=== PATIENT | female | born 1965 | race Caucasian/White ===

== ENCOUNTER → 2016-05-29 | Outpatient (CLI) | payer OTHER ==
[~2016-05-29] MED LIST: AMOX875T PO; CLB100 PO; FAMO20TA11 PO; FAMO20TA12 PO; PLQ200 PO; WARF-246 PO
--- NOTE | 2016-05-29 15:54 | DIAGNOSTIC IMAGING REPORT ---
MRI OF THE CERVICAL SPINE WITHOUT IV CONTRAST CLINICAL HISTORY: Neck pain. Left hand numbness. COMPARISON STUDY: Radiographs of the cervical spine dated 07/28/2015. TECHNIQUE: MRI of the cervical spine is performed utilizing various T1 and T2-weighted sequences in the axial and sagittal planes. IV contrast was not administered for this examination. FINDINGS: Cervical spine: Vertebral body height is maintained throughout the cervical spine. There is minimal retrolisthesis at C5-C6. Alignment is otherwise preserved. There is straightening of the cervical lordosis. The atlantodental articulation appears maintained. The spinous processes are intact as visualized. No destructive osseous lesion is seen. Intervertebral discs: There is mild degenerative disc desiccation throughout the cervical spine. Mild loss of height is noted at C5-C6. Spinal cord: The cervical spinal cord is normal in morphology and signal intensity. C2-C3: Unremarkable. C3-C4: Unremarkable. C4-C5: Unremarkable. C5-C6: A posterior disc osteophyte complex abuts the ventral cord. Uncovertebral and facet arthropathy cause [id number] left greater than right neural foraminal stenosis. C6-C7: Unremarkable. C7-T1: Unremarkable. Soft tissues: The prevertebral and paraspinous soft tissues are normal as visualized. Brain parenchyma: Partially imaged brain parenchyma the skull base is within normal limits. The cerebral tonsils are normal in configuration. Mucosal thickening and trace fluid is seen within the sphenoid sinuses. IMPRESSION: 1. Spondylotic change at C5-C6 as detailed above. 2. The cervical spinal cord is normal in morphology and signal intensity. Electronically signed by: Praful Azar M.D. 05/29/2016 3:53 PM Dictated Date/Time: 05/29/2016 3:49 PM
== END | disposition home or self-care (01) ==
LOC: C.MRI 14:54
PROVIDERS: ATTEND Orthopaedic Surgery
DX: M54.2 Cervicalgia (principal)

== ENCOUNTER 2016-07-22 01:50 | Inpatient (IN) | payer OTHER ==
[~2016-07-22] VITALS: Ht 165.1 cm; Wt 91.9 kg
[~2016-07-22 01:50] MED LIST changes: -AMOX875T PO; -CLB100 PO; -FAMO20TA11 PO; -FAMO20TA12 PO
[2016-07-22] MEDS ORDERED: KETOROLAC TROMETHAMINE 30 MG/ML VIAL IV STA (02:24)
--- NOTE | 2016-07-22 02:25 | EMERGENCY ROOM VISIT NOTE ---
History Report prepared by Florinda: Veronica Castro Under the Supervision of: Dr. Ana Sutton D.O. First contact with patient: 02:08 Chief Complaint: SHOULDER PAIN Stated Complaint: RIGHT ARM PAIN AND SHOULDER PAIN History of Present Illness The patient is a 50 year old female who presents to the Emergency Room with complaints of persistent right shoulder pain that began around 1999 this evening. She currently rates her discomfort as a 10/10 in severity. The patient states that this evening she developed severe right shoulder pain and states that she could not move her shoulder up. She states that she has tried heat, Aleve, Advil, and Icy/hot without relief of her symptoms. The patient states that today she had two moles removed from her back. She additionally notes that she had two moles removed from her leg recently, noting that she has not been working out recently. The patient denies ever having this pain in the past. She notes that she has a history of severe rheumatoid arthritis. The patient notes that she has been feeling tired and weak recently. She states that she has chronic pain and numbness in her left fingers due to a compressing nerve in her C5 and C6. The patient denies any abdominal pain. The patient states that she is on Coumadin for her Factor Five Leiden Deficiency Source of History: patient Onset: 1999 this evening Position: shoulder (right) Symptom Intensity: 10/10 Timing: other (persistent) Associated Symptoms: No abdominal pain Review of Systems See HPI for pertinent positives & negatives. A total of 10 systems reviewed and were otherwise negative. Past Medical & Surgical Medical Problems: (1) Anemia, iron deficiency (2) Cholelithiasis (3) Endometriosis (4) Epigastric pain (5) Factor V Leiden mutation (6) GERD (gastroesophageal reflux disease) (7) Gestational diabetes, diet controlled (8) H/O deep venous thrombosis (9) HLD (hyperlipidemia) (10) Lumbago (11) Migraine with aura (12) RUQ abdominal pain (13) Subtherapeutic international normalized ratio (INR) Surgical Problems: (1) breast needle biopsy (2) bunion surgery (3) H/O colonoscopy (4) H/O esophagogastroduodenoscopy (5) H/O gastric bypass (6) History of carpal tunnel surgery (7) History of kidney surgery (8) History of ureter stent Family History Diabetes mellitus FH: heart disease FATHER FH: rheumatoid arthritis FATHER Social History Smoking Status: Former Smoker Alcohol Use: occasionally Drug Use: none Marital Status: Housing Status: lives with family Occupation Status: employed Current/Historical Medications Scheduled Hydroxychloroquine Sulfate (Hydroxychloroquine Sulfat), 400 MG PO HS Warfarin Sodium (Warfarin Sodium), 5 MG PO 4XWK Warfarin Sodium (Warfarin Sodium), 7.5 MG PO 3XWK Allergies Coded Allergies: Pantoprazole (Verified Allergy, Intermediate, RASH, 07/22/16) Penicillin V (Verified Allergy, Intermediate, MILD HIVES, 07/22/16) Tetracyclines (Verified Allergy, Mild, RASH, 07/22/16) Latex (Verified Allergy, Unknown, RASH, 07/22/16) Sulfa Antibiotics (Verified Adverse Reaction, Mild, HEADACHES, 07/22/16) Physical Exam Vital Signs Date Time Temp Pulse Resp B/P Pulse Ox O2 Delivery O2 Flow Rate FiO2 07/22/16 06:20 66 12 100 07/22/16 06:00 120/76 07/22/16 05:50 60 14 94 07/22/16 05:45 56 15 136/74 95 Room Air 07/22/16 05:18 69 18 117/78 100 Room Air 07/22/16 05:06 62 07/22/16 05:05 60 16 133/80 94 Room Air 07/22/16 04:30 68 18 112/64 94 Room Air 07/22/16 03:18 56 18 125/72 96 Room Air 07/22/16 02:01 37.1 74 18 120/80 99 Room Air Physical Exam HEENT: Head - normocephalic and atraumatic Pupils are equal, round, and reactive to light. Extraocular eye muscles are intact, and sclera are anicteric. Nose - moist nasal mucosa without discharge. Mouth - moist buccal mucosa. Oropharynx is nonerythematous and there is no tonsillar exudate or edema noted. Neck: Supple; no JVD, nuchal rigidity, cervical lymphadenopathy. Heart: Regular rate and rhythm. There is a normal S1 and S2 with no murmurs, clicks, or gallops appreciated. Lungs: Clear to auscultation bilaterally with no wheezes, rales, or rhonchi. Abdomen: Soft, completely nontender, nondistended, with good bowel sounds. There are no palpable pulsatile masses or hepatosplenomegaly. There is no guarding, rigidity, or rebound noted. Extremities: Right shoulder has severe pain with palpation over the supraspinatus muscle, severe and exquisite discomfort with abduction and flexion of shoulder, pain in shoulder with movement at the elbow. Normal sensation in hand. No evidence of cyanosis, clubbing, or edema. There are easily palpable peripheral pulses. Skin: warm and dry with good turgor and no rashes. Medical Decision & Procedures ER Provider Diagnostic Interpretation: Right shoulder x-ray 2 views interpreted by me: no obvious degenerative changes , no fracture, no dislocation CT results as stated below per my review and radiologist interpretation: CT Right Shoulder: Comparison 07/22/2016. No acute osseous abnormality or evidence of hemarthrosis. Moderate right clinical humeral joint effusion. Mild acromioclavicular osteoarthritis. Radiologist: Paxton Hebert MD Study ready at 0336 and initial results transmitted at 0356 CT Abdomen and Pelvis: Comparison 08/23/2015. No acute intra-abdominal or pelvic abnormality. No evidence of intra-abdominal or retroperitoneal hemorrhage. Stable left UPJ obstruction. Stable prominence of the intrahepatic and extrahepatic bile ducts. Stable surgical changes of cholecystectomy and gastric bypass. No evidence of obstruction. Radiologist: Paxton Hebert MD Study ready at 0540 and initial results transmitted at 0614 Laboratory Results 07/22/16 02:32 Red Blood Count 4.85, Mean Corpuscular Volume 85.2, Mean Corpuscular Hemoglobin 28.0, Mean Corpuscular Hemoglobin Concent 32.9, Mean Platelet Volume 9.1, Neutrophils (%) (Auto) 64.2, Lymphocytes (%) (Auto) 23.2, Monocytes (%) (Auto) 9.1, Eosinophils (%) (Auto) 2.5, Basophils (%) (Auto) 0.8, Neutrophils # (Auto) 3.82, Lymphocytes # (Auto) 1.38, Monocytes # (Auto) 0.54, Eosinophils # (Auto) 0.15, Basophils # (Auto) 0.05 07/22/16 04:50 Test 07/22/16 02:32 07/22/16 04:50 White Blood Count 5.95 K/uL (4.8-10.8) Red Blood Count 4.85 M/uL (4.2-5.4) Hemoglobin 13.6 g/dL (12.0-16.0) Hematocrit 41.3 % (37-47) Mean Corpuscular Volume 85.2 fL (80-100) Mean Corpuscular Hemoglobin 28.0 pg (25-34) Mean Corpuscular Hemoglobin Concent 32.9 g/dl (32-36) Platelet Count 243 K/uL (130-400) Mean Platelet Volume 9.1 fL (7.4-10.4) Neutrophils (%) (Auto) 64.2 % Lymphocytes (%) (Auto) 23.2 % Monocytes (%) (Auto) 9.1 % Eosinophils (%) (Auto) 2.5 % Basophils (%) (Auto) 0.8 % Neutrophils # (Auto) 3.82 K/uL (1.4-6.5) Lymphocytes # (Auto) 1.38 K/uL (1.2-3.4) Monocytes # (Auto) 0.54 K/uL (0.11-0.59) Eosinophils # (Auto) 0.15 K/uL (0-0.5) Basophils # (Auto) 0.05 K/uL (0-0.2) RDW Standard Deviation 43.3 fL (36.4-46.3) RDW Coefficient of Variation 14.1 % (11.5-14.5) Immature Granulocyte % (Auto) 0.2 % Immature Granulocyte # (Auto) 0.01 K/uL (0.00-0.02) Erythrocyte Sedimentation Rate 3 mm/hr (0-21) Activated Partial Thromboplast Time 47.9 SECONDS (21.0-31.0) Partial Thromboplastin Ratio 1.8 C-Reactive Protein < 0.29 mg/dl (0-0.29) Anion Gap 6.0 mmol/L (3-11) Est Creatinine Clear Calc Drug Dose 99.6 ml/min Estimated GFR () 108.0 Estimated GFR (Non- 93.1 BUN/Creatinine Ratio 19.1 (10-20) Calcium Level 8.2 mg/dl (8.5-10.1) Total Bilirubin 0.5 mg/dl (0.2-1) Direct Bilirubin 0.2 mg/dl (0-0.2) Aspartate Amino Transf (AST/SGOT) 140 U/L (15-37) Alanine Aminotransferase (ALT/SGPT) 65 U/L (12-78) Alkaline Phosphatase 96 U/L (45-117) Total Protein 6.5 gm/dl (6.4-8.2) Albumin 3.5 gm/dl (3.4-5.0) Lipase 298 U/L (73-393) Laboratory results per my review. Medications Administered Medications (Trade) Dose Ordered Sig/Huseyin Route Start Time Stop Time Status Last Admin Dose Admin Ketorolac Tromethamine (Toradol Inj) 30 mg NOW STAT IV 07/22/16 02:24 07/22/16 02:26 DC 07/22/16 02:40 30 MG Hydromorphone HCl (Dilaudid Inj) 2 mg NOW STAT IV 07/22/16 02:26 07/22/16 02:27 DC 07/22/16 02:39 2 MG Ondansetron HCl (Zofran Inj) 4 mg NOW STAT IV 07/22/16 03:07 07/22/16 03:09 DC 07/22/16 03:16 4 MG Metoclopramide HCl 5 mg 5 mg NOW STAT IV 07/22/16 03:41 07/22/16 03:42 DC 07/22/16 03:46 5 MG Phytonadione/ Sodium Chloride (Aqua-Mephyton Inj/Nss 50ml) 51 ml @ 102 mls/hr NOW STAT IV 07/22/16 04:44 07/22/16 05:13 DC 07/22/16 05:02 102 MLS/HR Famotidine (Pepcid 20mg/100 ml) 20 mg ONE STAT IV 07/22/16 05:28 07/22/16 05:35 DC 07/22/16 05:43 20 MG Hydromorphone HCl (Dilaudid Inj) 0.5 mg NOW STAT IV 07/22/16 06:20 07/22/16 06:21 DC 07/22/16 06:22 0.5 MG Procedure The patient was treated with Toradol Inj 30 mg IV, Dilaudid Inj 2 mg IV, Zofran Inj 4 mg IV, Reglan Inj 5 mg IV. ED Course 0213: Past medical records reviewed. The patient was evaluated in room A12B. A complete history and physical exam was performed. An IV lock was initiated and labs are drones above. 0224: Ordered Toradol Inj 30 mg IV, Dilaudid Inj 2 mg IV. The patient had a chest x-ray. 0307: I reevaluated the patient and she is pale, diaphoretic, and nauseated. Patient was noted to have a significantly elevated INR. She is going to have a CT scan. Ordered Zofran Inj 4 mg IV. 0340: Per nursing staff the patient is complaining of epigastric pain and is still nauseated. Ordered Reglan Inj 5 mg IV. 0406: I reevaluated the patient and she is still having epigastric pain and nausea. I discussed the exam findings with her and I discussed the treatment plan. She verbalized complete understanding and agreement. She will be evaluated for further treatment. 0425: I discussed the patients case with Jeremy Esparza. He is going to evaluate the patient for further treatment. 0618: I reevaluated the patient and updated her on her results of her CT scan. She is having more right shoulder pain. Medical Decision The patient is a 50 year old female who presents to the ED with right shoulder pain. Differential diagnosis includes cervical radiculopathy, tendinitis, bursitis, DVT, Hemarthrosis. Lab interpretation: normal sed rate, stable H&H, normal white count, negative C reactive protein, INR greater than 8 this is a 50-year-old female patient presents to the emergency department with severe and exquisite right shoulder pain. The pain gets much worse with any type of movement. Initially, I was significantly concerned for a bursitis or tendinitis. However, the patient has an INR greater than [address] scan has a significant effusion which would be concerning for hemarthrosis. I discussed the case with the [facility] Hospitalist and they evaluated the patient and ordered vitamin K. They will consult orthopedics. The patient continued to complain of some epigastric discomfort despite meds. Because of the elevated INR, the patient went for CT scan of the abdomen/pelvis which was essentially unremarkable. Consults Time Called: [phone] Consulting Physician: Dr. Gomez Returned Call: [phone] I discussed the patients case with Jeremy Esparza. He is going to evaluate the patient for further treatment. Impression Primary Impression: Supratherapeutic INR Additional Impression: Hemarthrosis, right shoulder Scribe Attestation The scribe's documentation has been prepared under my direction and personally reviewed by me in its entirety. I confirm that the note above accurately reflects all work, treatment, procedures, and medical decision making performed by me. Departure Information Dispostion Being Evaluated By Hospitalist Referrals Geoff Guillaume M.D.([facility]) (PCP) Problem Qualifiers
[2016-07-22] MEDS ORDERED: HYDROmorphone INJ 2 MG/ML SYR/VIAL IV STA (02:26)
[2016-07-22 02:42] LABS: BASO % 0.8 %; BASO ABS # 0.05 K/uL (0-0.2); COMPLETE YES; EOS % 2.5 %; HEMATOCRIT 41.3 % (37-47); IG% 0.2 %; LYMPH % 23.2 %; LYMPH ABS # 1.38 K/uL (1.2-3.4); MEAN CELL VOLUME 85.2 fL (80-100); MEAN CORPUSCULAR HGB CONC 32.9 g/dl (32-36); MEAN PLATELET VOLUME 9.1 fL (7.4-10.4); MONO % 9.1 %; NEUT % 64.2 %; PLATELET COUNT 243 K/uL (130-400); RED BLOOD COUNT 4.85 M/uL (4.2-5.4); WHITE BLOOD COUNT 5.95 K/uL (4.8-10.8)
[2016-07-22 02:58] LABS: PARTIAL THROMBOPLASTIN RATIO 1.8; PROTHROMBIN TIME (PATIENT) 95.2 SECONDS (9.0-12.0)
[2016-07-22 03:03] LABS: INR > 8.0 (0.9-1.1)
[2016-07-22] MEDS ORDERED: ONDANSETRON INJ 2 MG/ML 2 ML VIAL IV STA (03:07)
[2016-07-22] MEDS ORDERED: METOCLOPRAMIDE HCL INJ 5 MG/ML 2 ML VIAL IV STA (03:41)
[2016-07-22] MEDS ORDERED: PHYTONADIONE INJ 10 MG in SODIUM CHLORIDE 0.9% 50ML 50 ML IV STA (04:44)
[2016-07-22 05:17] LABS: BUN/CREATININE RATIO 19.1 (10-20); CALCIUM 8.2 mg/dl (8.5-10.1); CREATININE 0.74 mg/dl (0.60-1.20); POTASSIUM 4.2 mmol/L (3.5-5.1)
[2016-07-22] MEDS ORDERED: FAMOTIDINE 20MG/102 ML D5W IV STA (05:28)
[2016-07-22] MEDS ORDERED: HYDROmorphone INJ 0.5 MG/0.5 ML SYR ONE (06:18)
[2016-07-22] MEDS ORDERED: HYDROmorphone INJ 0.5 MG/0.5 ML SYR IV STA (06:20)
[2016-07-22] MEDS ORDERED: ONDANSETRON INJ 2 MG/ML 2 ML VIAL IV PRN (06:30)
[2016-07-22] MEDS ORDERED: HYDROmorphone INJ 0.5 MG/0.5 ML SYR IV PRN (06:30)
--- NOTE | 2016-07-22 06:50 | History and Physical ---
History & Physical Date & Time of Service: Jul 22, 2016 at 05:00 . Chief Complaint: right shoulder pain . Primary Care Physician: Geoff Guillaume M.D.([facility]) . History of Present Illness Source: family, clinic records, hospital records 50 YO female followed by Dr. Guillaume. History of recurrent DVT and Factor V Leiden mutation, on chronic warfarin therapy. INR 3/9 was subtherapeutic and warfarin dose was increased. This evening she developed acute onset of right shoulder pain. Pain was severe, nonradiating, aggravated by movement. No trauma or unusual activity. No fever. Tried heating pad and relief without benefit. Came to ED for evaluation. Developed severe epigastric pain and nausea in ED. . Past Medical/Surgical History Chronic and Resolved Medical Problems: (1) Anemia, iron deficiency Status: Chronic (2) Cholelithiasis Status: Chronic (3) Endometriosis Status: Chronic (4) Epigastric pain Status: Resolved (5) Factor V Leiden mutation Status: Chronic (6) GERD (gastroesophageal reflux disease) Status: Chronic (7) Gestational diabetes, diet controlled Status: Chronic (8) H/O deep venous thrombosis Status: Chronic (9) HLD (hyperlipidemia) Status: Chronic (10) Lumbago Status: Chronic (11) Migraine with aura Status: Chronic (12) RUQ abdominal pain Status: Resolved (13) Subtherapeutic international normalized ratio (INR) Status: Resolved Surgical Problems: (1) breast needle biopsy Permanent Comment: sclerotic fibroadenomatoid nodule with microcalcifications Status: Chronic (2) bunion surgery Status: Chronic (3) H/O colonoscopy Status: Chronic (4) H/O esophagogastroduodenoscopy Status: Chronic (5) H/O gastric bypass Status: Chronic (6) History of carpal tunnel surgery Status: Chronic (7) History of kidney surgery Status: Chronic (8) History of ureter stent Status: Chronic . Family History Diabetes mellitus FH: heart disease FATHER FH: rheumatoid arthritis FATHER Social History Smoking Status: Former Smoker Alcohol Use: occasionally Drug Use: none Marital Status: Occupational Status: employed Immunizations History of Influenza Vaccine: Yes History of Tetanus Vaccine?: Unknown History of Pneumococcal: Unknown History of Hepatitis B Vaccine: Unknown Multi-Drug Resistant Organisms History of MDRO: No Allergies Coded Allergies: Pantoprazole (Verified Allergy, Intermediate, RASH, 07/22/16) Penicillin V (Verified Allergy, Intermediate, MILD HIVES, 07/22/16) Tetracyclines (Verified Allergy, Mild, RASH, 07/22/16) Latex (Verified Allergy, Unknown, RASH, 07/22/16) Sulfa Antibiotics (Verified Adverse Reaction, Mild, HEADACHES, 07/22/16) Home Medications Scheduled Hydroxychloroquine Sulfate (Hydroxychloroquine Sulfat), 400 MG PO HS Warfarin Sodium (Warfarin Sodium), 5 MG PO 4XWK Warfarin Sodium (Warfarin Sodium), 7.5 MG PO 3XWK Review of Systems Constitutional: No chills, No fever, No weight loss Eyes: No diplopia, No worsening of vision ENT: No nasal symptoms Respiratory: No cough, No shortness of breath, No wheezing Cardiovascular: No chest pain, No edema Abdomen: + nausea, + pain (developed in ED), No GI bleeding, No diarrhea, No vomiting Musculoskeletal: + problem reported (as noted in HPI) Genitourinary - Female: No dysuria, No hematuria Neurologic: No weakness Endocrine: No excessive thirst, No excessive urination Hematologic / Lymphatic: + abnormal bleeding/bruising, No swollen lymph nodes Integumentary: + problem reported (recent skin biopsy), No rash Physical Exam Vital Signs Date Time Temp Pulse Resp B/P Pulse Ox O2 Delivery O2 Flow Rate FiO2 07/22/16 06:48 69 07/22/16 05:45 56 15 136/74 95 Room Air 07/22/16 05:18 69 18 117/78 100 Room Air 07/22/16 05:06 62 07/22/16 05:05 60 16 133/80 94 Room Air 07/22/16 04:30 68 18 112/64 94 Room Air 07/22/16 03:18 56 18 125/72 96 Room Air 07/22/16 02:01 37.1 74 18 120/80 99 Room Air General Appearance: WD/WN, + moderate distress Head: normocephalic, atraumatic Eyes: normal inspection, PERRL, EOMI, sclerae normal ENT: normal ENT inspection, hearing grossly normal, pharynx normal Neck: supple, no adenopathy, thyroid normal, no JVD, trachea midline Respiratory/Chest: lungs clear, no respiratory distress, no accessory muscle use Cardiovascular: regular rate, rhythm, no edema, no gallop, no JVD, no murmur, normal peripheral pulses Abdomen/GI: soft, no organomegaly, no pulsatile mass, + pertinent finding ( moderate epigastric tenderness with guarding) Extremities/Musculoskelatal: no calf tenderness, normal capillary refill, no pedal edema, + pertinent finding (tenderness right shoulder anteriorly; wearing immobilizer) Neurologic/Psych: publicity consultant II-XII nml as tested (PERRL, EOMI, no facial palsy), + pertinent finding (somewhat sedated after receiving Dilaudid) Skin: normal color, warm/dry Lymphatic: no adenopathy Diagnostics Laboratory Results Results Past 24 Hours Test 07/22/16 02:32 07/22/16 04:50 Range/Units White Blood Count 5.95 4.8-10.8 K/uL Red Blood Count 4.85 4.2-5.4 M/uL Hemoglobin 13.6 12.0-16.0 g/dL Hematocrit 41.3 37-47 % Mean Corpuscular Volume 85.2 80-100 fL Mean Corpuscular Hemoglobin 28.0 25-34 pg Mean Corpuscular Hemoglobin Concent 32.9 32-36 g/dl Platelet Count 243 130-400 K/uL Mean Platelet Volume 9.1 7.4-10.4 fL Neutrophils (%) (Auto) 64.2 % Lymphocytes (%) (Auto) 23.2 % Monocytes (%) (Auto) 9.1 % Eosinophils (%) (Auto) 2.5 % Basophils (%) (Auto) 0.8 % Neutrophils # (Auto) 3.82 1.4-6.5 K/uL Lymphocytes # (Auto) 1.38 1.2-3.4 K/uL Monocytes # (Auto) 0.54 0.11-0.59 K/uL Eosinophils # (Auto) 0.15 0-0.5 K/uL Basophils # (Auto) 0.05 0-0.2 K/uL RDW Standard Deviation 43.3 36.4-46.3 fL RDW Coefficient of Variation 14.1 11.5-14.5 % Immature Granulocyte % (Auto) 0.2 % Immature Granulocyte # (Auto) 0.01 0.00-0.02 K/uL Erythrocyte Sedimentation Rate 3 0-21 mm/hr Prothrombin Time 95.2 9.0-12.0 SECONDS Prothromb Time International Ratio > 8.0 0.9-1.1 Activated Partial Thromboplast Time 47.9 21.0-31.0 SECONDS Partial Thromboplastin Ratio 1.8 C-Reactive Protein < 0.29 0-0.29 mg/dl Sodium Level 142 136-145 mmol/L Potassium Level 4.2 3.5-5.1 mmol/L Chloride Level 107 98-107 mmol/L Carbon Dioxide Level 29 21-32 mmol/L Anion Gap 6.0 3-11 mmol/L Blood Urea Nitrogen 14 7-18 mg/dl Creatinine 0.74 0.60-1.20 mg/dl Est Creatinine Clear Calc Drug Dose 99.6 ml/min Estimated GFR () 108.0 Estimated GFR (Non- 93.1 BUN/Creatinine Ratio 19.1 10-20 Random Glucose 156 70-99 mg/dl Calcium Level 8.2 8.5-10.1 mg/dl Total Bilirubin 0.5 0.2-1 mg/dl Direct Bilirubin 0.2 0-0.2 mg/dl Aspartate Amino Transf (AST/SGOT) 140 15-37 U/L Alanine Aminotransferase (ALT/SGPT) 65 12-78 U/L Alkaline Phosphatase 96 45-117 U/L Total Protein 6.5 6.4-8.2 gm/dl Albumin 3.5 3.4-5.0 gm/dl Lipase 298 73-393 U/L Diagnostic Radiology RIGHT SHOULDER 3 VIEWS CLINICAL HISTORY: Right shoulder pain. FINDINGS: 3 views of the right shoulder are obtained. No prior studies are available for comparison at the time of dictation. The skeletal structures are osteopenic. No fracture or dislocation is seen. Mild productive change is noted at the acromioclavicular joint. Mild arthritic change is also seen in the greater tuberosity of the humeral head. The glenohumeral articulation is preserved. The overlying soft tissues are within normal limits. The visualized right lung parenchyma appears clear. IMPRESSION: 1. No acute bony abnormality is seen in the right shoulder. 2. Osteopenia and mild degenerative change as above. Electronically signed by: Praful Azar M.D. 07/22/2016 7:[address] SCAN OF THE RIGHT SHOULDER WITHOUT IV CONTRAST FINDINGS: The skeletal structures are osteopenic. No fracture is identified. Mild productive degenerative change is seen at the acromioclavicular joint. Mild arthritic change is also seen in the greater tuberosity of the humeral head. The glenohumeral articulation is preserved. There may be trace joint effusion. Subcoracoid bursal fluid is noted. The musculature around the right shoulder is normal in bulk and attenuation. No intramuscular hematoma is identified. There is no right axillary lymphadenopathy. Visualized right lung parenchyma appears clear. No hematoma is identified. IMPRESSION: 1. No fracture is identified. 2. Osteopenia and mild arthritic change as above. 3. There is subcoracoid bursal fluid. 4. There may be trace joint effusion. Electronically signed by: Praful Azar M.D. 07/22/2016 7:[address] SCAN OF THE ABDOMEN AND PELVIS WITHOUT IV CONTRAST FINDINGS: Lung bases: The heart is normal in size noting trace pericardial effusion. There is bibasilar scarring versus atelectasis. The lung bases are otherwise clear. Liver: The unenhanced liver is normal in size, contour, and attenuation. There is [id number] central intrahepatic biliary ductal dilatation. Gallbladder: Surgically absent noting clips in the gallbladder fossa. Spleen: Normal in size and attenuation. Pancreas: Unremarkable. Adrenal glands: Unremarkable. Kidneys: The unenhanced kidneys are atrophic, left greater than right. There is moderate left-sided hydronephrosis which is unchanged from 08/23/2015. The left ureter is normal in caliber and this likely represents a UPJ type obstruction. There are no renal calculi identified. There is no evidence of contour deforming renal mass lesion. Abdominal vasculature: The abdominal aorta is normal in course and caliber noting moderate to advanced atherosclerotic calcification. Stomach and bowel: There is a small hiatal hernia. There are postoperative changes consistent with a history of Erin-en-Y gastric bypass surgery. There is no bowel obstruction. A left-sided spigelian hernia contains a portion of the descending colon as seen on image #170. The small bowel and colon are normal in course and caliber. The appendix is normal as visualized. Peritoneum/retroperitoneum: There is no intraperitoneal free air or abdominal ascites. There is no retroperitoneal hematoma. Lymphadenopathy: None. Pelvic viscera: The bladder is normal as visualized. The uterus is surgically absent. No adnexal lesion is seen. Skeletal structures: The skeletal structures are osteopenic. No lytic or blastic lesions are seen. IMPRESSION: 1. Suboptimal examination without oral and IV contrast. 2. There are no acute infectious or inflammatory findings in the abdomen or pelvis. 3. Moderate left hydronephrosis is unchanged from 08/23/2015 and likely represents a UPJ type obstruction. 4. There are postoperative changes consistent with a history of Erin-en-Y gastric bypass surgery. No bowel obstruction is seen. 5. A left-sided spigelian hernia contains a segment of the descending colon. 5. Additional findings as above. Electronically signed by: Praful Azar M.D. 07/22/2016 6:58 AM . Impression Assessment and Plan SEVERE RIGHT SHOULDER PAIN Suspected spontaneous hemarthrosis in light of markedly elevated INR. Preliminary CT report interpreted as moderate joint effusion, but subsequent final report did not. Analgesics as needed. Orthopedic Surgery consulted. SEVERE ABDOMINAL PAIN CT abdomen and pelvis negative for hemorrhage or other acute process. ELEVATED INR INR > 8. Warfarin dose was increased on 07/06. No recent antibiotics or other new meds. Warfarin reversed with IV vitamin K in light of the concerns noted above. Resume anticoagulation when able- warfarin vs DOAC. RHEUMATOID ARTHRITIS Continue hydroxychloroquine. VTE PROPHYLAXIS High risk for recurrent VTE. Holding warfarin as discussed above. SCD's. Ambulate. RESUSCITATION STATUS Full resuscitation. DISPOSITION Admit to Med-Surg Unit. Expected discharge to home. Family Medicine follow-up with Dr. Guillaume. . VTE Prophylaxis VTE Risk Assessment Done? Y/N: Yes Risk Level: High Given or contraindicated: SCD's
--- NOTE | 2016-07-22 07:00 | DIAGNOSTIC IMAGING REPORT ---
CT SCAN OF THE ABDOMEN AND PELVIS WITHOUT IV CONTRAST CLINICAL HISTORY: Generalized abdominal pain. COMPARISON STUDY: Abdominal CT dated 08/23/2015. TECHNIQUE: CT scan of the abdomen and pelvis is performed from the lung bases to the proximal femora. Images are reviewed in the axial, sagittal, and coronal planes. IV contrast was not administered for this examination as per the referring clinician. Note that the examination was performed in suboptimal fashion without oral and IV contrast. Automated dose control exposure was utilized. CT DOSE: 751.20 mGy.cm FINDINGS: Lung bases: The heart is normal in size noting trace pericardial effusion. There is bibasilar scarring versus atelectasis. The lung bases are otherwise clear. Liver: The unenhanced liver is normal in size, contour, and attenuation. There is [id number] central intrahepatic biliary ductal dilatation. Gallbladder: Surgically absent noting clips in the gallbladder fossa. Spleen: Normal in size and attenuation. Pancreas: Unremarkable. Adrenal glands: Unremarkable. Kidneys: The unenhanced kidneys are atrophic, left greater than right. There is moderate left-sided hydronephrosis which is unchanged from 08/23/2015. The left ureter is normal in caliber and this likely represents a UPJ type obstruction. There are no renal calculi identified. There is no evidence of contour deforming renal mass lesion. Abdominal vasculature: The abdominal aorta is normal in course and caliber noting moderate to advanced atherosclerotic calcification. Stomach and bowel: There is a small hiatal hernia. There are postoperative changes consistent with a history of Erin-en-Y gastric bypass surgery. There is no bowel obstruction. A left-sided spigelian hernia contains a portion of the descending colon as seen on image #170. The small bowel and colon are normal in course and caliber. The appendix is normal as visualized. Peritoneum/retroperitoneum: There is no intraperitoneal free air or abdominal ascites. There is no retroperitoneal hematoma. Lymphadenopathy: None. Pelvic viscera: The bladder is normal as visualized. The uterus is surgically absent. No adnexal lesion is seen. Skeletal structures: The skeletal structures are osteopenic. No lytic or blastic lesions are seen. IMPRESSION: 1. Suboptimal examination without oral and IV contrast. 2. There are no acute infectious or inflammatory findings in the abdomen or pelvis. 3. Moderate left hydronephrosis is unchanged from 08/23/2015 and likely represents a UPJ type obstruction. 4. There are postoperative changes consistent with a history of Erin-en-Y gastric bypass surgery. No bowel obstruction is seen. 5. A left-sided spigelian hernia contains a segment of the descending colon. 5. Additional findings as above. Electronically signed by: Praful Azar M.D. 07/22/2016 6:58 AM Dictated Date/Time: 07/22/2016 6:52 AM
--- NOTE | 2016-07-22 07:10 | DIAGNOSTIC IMAGING REPORT ---
CT SCAN OF THE RIGHT SHOULDER WITHOUT IV CONTRAST CLINICAL HISTORY: Right shoulder pain. COMPARISON STUDY: Radiographs of the right shoulder dated 07/22/2016. TECHNIQUE: CT scan of the right shoulder is performed from the lower neck to the humeral shaft. Images are reviewed in the axial, sagittal, and coronal planes. IV contrast was not administered for this examination. CT DOSE: 455.26 mGy.cm FINDINGS: The skeletal structures are osteopenic. No fracture is identified. Mild productive degenerative change is seen at the acromioclavicular joint. Mild arthritic change is also seen in the greater tuberosity of the humeral head. The glenohumeral articulation is preserved. There may be trace joint effusion. Subcoracoid bursal fluid is noted. The musculature around the right shoulder is normal in bulk and attenuation. No intramuscular hematoma is identified. There is no right axillary lymphadenopathy. Visualized right lung parenchyma appears clear. No hematoma is identified. IMPRESSION: 1. No fracture is identified. 2. Osteopenia and mild arthritic change as above. 3. There is subcoracoid bursal fluid. 4. There may be trace joint effusion. Electronically signed by: Praful Azar M.D. 07/22/2016 7:09 AM Dictated Date/Time: 07/22/2016 6:59 AM
[2016-07-22 07:38] VITALS: O2SAT 94
--- NOTE | 2016-07-22 07:57 | DIAGNOSTIC IMAGING REPORT ---
RIGHT SHOULDER 3 VIEWS CLINICAL HISTORY: Right shoulder pain. FINDINGS: 3 views of the right shoulder are obtained. No prior studies are available for comparison at the time of dictation. The skeletal structures are osteopenic. No fracture or dislocation is seen. Mild productive change is noted at the acromioclavicular joint. Mild arthritic change is also seen in the greater tuberosity of the humeral head. The glenohumeral articulation is preserved. The overlying soft tissues are within normal limits. The visualized right lung parenchyma appears clear. IMPRESSION: 1. No acute bony abnormality is seen in the right shoulder. 2. Osteopenia and mild degenerative change as above. Electronically signed by: Praful Azar M.D. 07/22/2016 7:56 AM Dictated Date/Time: 07/22/2016 7:55 AM
[2016-07-22 08:10] VITALS: BP 130/75; PULSE 59; TEMP 36.3; Ht 165.1 cm; Wt 91.9 kg
[2016-07-22 08:50] VITALS: BP 130/75; PULSE 59; TEMP 36.3; O2SAT 97
[2016-07-22] MEDS: FAMOTIDINE 20 MG TAB PO SCH ×2 (09:12→20:57)
--- NOTE | 2016-07-22 10:23 | ORTHOPEDIC CONSULTATION ---
DATE OF CONSULTATION: 07/22/2016 DATE OF CONSULTATION: 07/22/2016. HISTORY OF PRESENT ILLNESS: The patient is a 50-year-old female who presents with acute onset of right shoulder pain last evening. She came to the hospital. She was noted to have increased INR and admitted. She has history of rheumatoid arthritis. She also has a history of multiple medical issues including anemia, choledocholithiasis, endometriosis, epigastric pain, Factor V Leiden mutation, GERD, diabetes, history of DVTs, hyperlipidemia, chronic back pain, migraines, upper abdominal pain. PAST MEDICAL HISTORY: She has had several surgeries, all of this is on her H\T\P, none on her shoulder. Orthopedic surgeries include bunion and carpal tunnel surgery. FAMILY HISTORY: RA, diabetes. SOCIAL HISTORY: Former smoker. She is . ALLERGIES: SULFA, LATEX, TETRACYCLINE, PENICILLIN AND PANTOPRAZOLE. MEDICATIONS: She is on warfarin. INR was elevated at [address]. She has a CT scan reviewed, demonstrates mild joint effusion and some bursitis. X-rays demonstrated normal findings. Her physical exam demonstrates that she does not have any large amount of swelling that would be consistent with any significant bleed. She does have some subacromial tenderness. She has exam more in keeping with bursitis of the shoulder than any hemarthrosis in the joint. She is painful overhead. I can range her at least 120 degrees overhead but then she is a bit painful over that. Internal external rotation opposite side was not painful. She had some soreness with resistant strength testing, but good isometric strength. Distal neurological exam was intact. Her other extremity was normal on the left side. ASSESSMENT: Mild synovitis could be consistent with her RA. She has bursitis, likely acute bursitis causing her symptoms. This may or may not be related to her INR. She does not clearly have a hemarthrosis. She does have an elevated INR. I discussed with her that once her INR comes down to a more reasonable level like 3 or under then it would proceed with a subacromial steroid injection for pain management. I discussed with the patient and she is agreeable. Thank you for this consult.
[2016-07-22] MEDS ORDERED: ETHYL CHLORIDE AER SPR 100 ML CAN EXT SCH (10:45)
[2016-07-22] MEDS ORDERED: METHYLPREDNISOLONE ACETATE 80 MG/ML VIAL IA ONE (10:45)
[2016-07-22] MEDS ORDERED: BUPIVACAINE 0.25% 30 ML VIAL INFIL SCH (10:45)
[2016-07-22] MEDS: OXYCODONE/ACETAMINOPHEN 5-325 TAB PO PRN ×2 (11:47→20:58)
[2016-07-22 12:29] LABS: HEMATOCRIT 37.5 % (37-47)
[2016-07-22 12:43] LABS: INR 1.7 (0.9-1.1); PROTHROMBIN TIME (PATIENT) 18.4 SECONDS (9.0-12.0)
[2016-07-22] MEDS ORDERED: PNEUMOCOCCAL ADMINISTRATION CHARGE ONE (14:15)
[2016-07-22] MEDS ORDERED: PNEUMOCOCCAL POLYSACCHARIDES 25 MCG/0.5 ML VIAL/SYR IM. ONE (14:15)
[2016-07-22 15:08] VITALS: BP 118/80; PULSE 61; TEMP 36.3; O2SAT 99
[2016-07-22] MEDS ORDERED: HYDROXYCHLOROQUINE SULFATE 200 MG TAB PO SCH (21:00)
[2016-07-22 23:30] VITALS: BP 133/85; PULSE 61; TEMP 36.5; O2SAT 98
[2016-07-23] MEDS: OXYCODONE/ACETAMINOPHEN 5-325 TAB PO PRN (02:25)
[2016-07-23 06:34] LABS: HEMATOCRIT 36.8 % (37-47)
[2016-07-23 06:41] LABS: INR 1.1 (0.9-1.1); PROTHROMBIN TIME (PATIENT) 11.7 SECONDS (9.0-12.0)
[2016-07-23 07:56] VITALS: BP 121/76; PULSE 60; TEMP 36.6; O2SAT 100
--- NOTE | 2016-07-23 08:24 | Progress Note ---
Orthopedic SOAP Note Subjective Date of Service: Jul 23, 2016. Additional Notes: mild pain Problem List Medical Problems: (1) Contusion of multiple sites Status: Acute (2) Fall Status: Acute (3) Supratherapeutic INR Status: Acute (4) Work related injury Status: Acute Objective N/V intact some shoulder soreness ,not as severe Date Time Temp Pulse Resp B/P Pulse Ox O2 Delivery O2 Flow Rate FiO2 07/23/16 07:56 36.6 60 16 121/76 100 Room Air 07/22/16 23:45 Room Air 07/22/16 23:30 36.5 61 18 133/85 98 Room Air 07/22/16 16:45 Room Air 07/22/16 15:08 36.3 61 16 118/80 99 Room Air 07/22/16 08:50 36.3 59 18 130/75 97 Room Air Laboratory Results 24 Hours: Test 07/22/16 12:21 07/23/16 06:08 Hematocrit 37.5 % 36.8 % Hemoglobin 12.3 g/dL 11.9 g/dL Prothromb Time International Ratio 1.7 1.1 Prothrombin Time 18.4 SECONDS 11.7 SECONDS Assessment bursitis right shoulder /rheumatoid arthritis hx Plan shoulder injected with depomedrol into right subacromial space. ok to d/c sling and ice sholder prn ,start celebrex and take one to two weeks if ok with medical service. f/u in office at [facility] [place] prn.
[2016-07-23] MEDS: FAMOTIDINE 20 MG TAB PO SCH (08:51)
[2016-07-23] MEDS ORDERED: NURSING VERBAL MED ORDER ONE (09:00)
[2016-07-23 14:13] VITALS: BP 121/76; PULSE 60; TEMP 36.6; O2SAT 100
[2016-07-23 14:58] VITALS: BP 113/68; PULSE 69; TEMP 36.8; O2SAT 97
[2016-07-23] MEDS ORDERED: FAMO20TA12 PO (15:08)
--- NOTE | 2016-07-23 15:09 | Discharge Instructions ---
Discharge Instructions Date of Service Jul 23, 2016. Admission Reason for Admission: Hemarthrosis, Right Shoulder Discharge Discharge Diagnosis / Problem: RIGHT SHOULDER BRUSITIS Discharge Goals Goal(s): Decrease discomfort, Improve function, Increase independence, Diagnostic testing, Therapeutic intervention Activity Recommendations Activity Limitations: as noted below ( TOLERATED ) Lifting Limitations: gradually increase as tolerated (RT ARM MOVEMENT ) Shower/Bathe: no limitations Driving or Machine Use: no limitations . Instructions / Follow-Up Instructions / Follow-Up HOSPITAL FOLLOW UP WITH ON 07/28/2016 @ 11:[address] Geoff Guillaume MD Family Practice [facility] RESUME YOUR OUT PATIENT COUMADIN DOSE DO NOT TAKE ASPIRIN , ALEVE , MOTRIN , NAPROXEN -MAY CAUSE INCREASE BLEEDING TAKE CELEBREX WITH FULL STOMACH CONTINUE TO TAKE PLAQUENIL PLEASE NOTIFY YOUR FAMILY PHYSICIAN IF YOU NOTICE DARK /TARRY COLOURED STOOL - SIGN OF BLEEDING IN STOMACH PLEASE CONTINUE TO FOLLOW UP WITH ANTICOAGULATION CLINIC AT [facility] FOR CONTINUED FOLLOW UP OF PT/INR LAB WORK: PT/INR ON Sunday07/25/16 Current Hospital Diet Patient's current hospital diet: AHA Diet (Heart Healthy) Discharge Diet Recommended Diet: Regular Diet Pending Studies Studies pending at discharge: yes (INR CHECK ) List of pending studies: PT/INR CHECK ON Sunday07/25/16 Medical Emergencies . Who to Call and When: Medical Emergencies: If at any time you feel your situation is an emergency, please call 911 immediately. . Non-Emergent Contact Non-Emergency issues call your: Primary Care Provider . . "Provider Documentation" section prepared by Kelly Mendoza. VTE Core Measure Inpt VTE Proph given/why not?: Warfarin (Coumadin), T.E.DBrennen Stockings, SCD's
[2016-07-23] MEDS ORDERED: CeleBREX 100 MG CAP PO STA (15:10)
[2016-07-23] MEDS ORDERED: CLB100 PO (15:11)
[2016-07-23] MEDS ORDERED: WARFARIN SOD 5 MG TAB PO ONE (15:15)
--- NOTE | 2016-07-23 15:35 | Progress Note ---
Internal Med Progress Note Date of Service: Jul 23, 2016. Provider Documentation: SUBJECTIVE: had rt shoulder steroid injection done by Dr Arana earlier this morning Pain and stiffness on right shoulder has improved markedly able to abduct , elevate arm above shoulder no fever or chills wants to go home today if possible OBJECTIVE: Vital Signs-as noted below Exam: General-very pleasant, no sign of distress Eyes-sclera non icteric Lungs-CTA ,no wheeze or rales Heart-regular S1/S2 Abdomen-soft, non tender Extremities-no swelling on rt shoulder, able to have normal adduction/abduction movement of arms Neuro-no focal neurological deficit Lab data as noted below. ASSESSMENT & PLAN: RIGHT SHOULDER PAIN due to rt shoulder bursitis Orthopedic Surgery consult appreciated no evidence of hematoma or hemarthrosis on rt shoulder s/p rt shoulder steroid injection today pt feels much better symptomatically , less pain able to do range of motion on rt shoulder pt is started on Celebrex -cont for 2 weeks Coumadin resumed out pt follow up with Orthopedics as need for rt shoulder pain /bursitis for repeat intra articular steroid injection HX OF FACTOR V LEIDEN /VTE on chronic Coumadin presented with INR > 8 no evidence of hemarthrosis on Rt shoulder on CT given IV Vit K 10 mg in ED for elevated INR concern for spontaneous rt shoulder hemarthrosis INR 1.1 today Coumadin resumed , will have repeat PT/INR check on 07/25/16 cont to follow up at anticoagulation clinic for further dose adjustment RHEUMATOID ARTHRITIS Continue hydroxychloroquine. follows with Rheumatology Dr Pederson has follow up appointment scheduled on August 2016 VTE PROPHYLAXIS Coumadin resumed out pt Lab work for PT./INR check on Sunday07/25/16 RESUSCITATION STATUS Full resuscitation. DISPOSITION Discharge to home today Family Medicine follow-up with Dr. Guillaume. will continue to follow up with Anticoagulation clinic at [facility] Vital Signs: Date Time Temp Pulse Resp B/P Pulse Ox O2 Delivery O2 Flow Rate FiO2 07/23/16 14:58 36.8 69 16 113/68 97 Room Air 07/23/16 14:13 36.6 60 16 100 Room Air 07/23/16 07:56 36.6 60 16 121/76 100 Room Air 07/23/16 07:20 Room Air 07/22/16 23:45 Room Air 07/22/16 23:30 36.5 61 18 133/85 98 Room Air 07/22/16 16:45 Room Air Lab Results: Results Past 24 Hours Test 07/23/16 06:08 Range/Units Hemoglobin 11.9 12.0-16.0 g/dL Hematocrit 36.8 37-47 % Prothrombin Time 11.7 9.0-12.0 SECONDS Prothromb Time International Ratio 1.1 0.9-1.1
--- NOTE | 2016-07-23 16:19 | Discharge Summary ---
Discharge Summary Date of Service Jul 23, 2016. Discharge Summary Admission Date: Jul 22, 2016 at 06:27 Discharge Date: Jul 23, 2016 Discharge Disposition: Home Principal Diagnosis: RIGHT SHOULDER BURSITIS/COAGULOPATHY Procedures: RT SHOULD INTRA-ARTICULAR STEROID INJECTION Consultations: ORTHOPEDICS DR ARRINGTON Medication Reconciliation New Medications: Celecoxib (Celebrex) 100 Mg Cap 1 CAP PO BID for 14 Days, #28 CAP 3 Refills Famotidine (Famotidine) 20 Mg Tab 20 MG PO DAILY for 30 Days, #30 TAB 3 Refills Continued Medications: Hydroxychloroquine Sulfate (Hydroxychloroquine Sulfat) 200 Mg Tab 400 MG PO HS Warfarin Sodium (Warfarin Sodium) 5 Mg Tab 5 MG PO 4XWK TAKE DAILY ON //SUNDAY/SUNDAY Warfarin Sodium (Warfarin Sodium) 5 Mg Tab 7.5 MG PO 3XWK TAKE DAILY ON SUN/SUN/SUNDAY Admission Information HPI (per Admitting provider): 50 YO female followed by Dr. Guillaume. History of recurrent DVT and Factor V Leiden mutation, on chronic warfarin therapy. INR 3/9 was subtherapeutic and warfarin dose was increased. This evening she developed acute onset of right shoulder pain. Pain was severe, nonradiating, aggravated by movement. No trauma or unusual activity. No fever. Tried heating pad and relief without benefit. Came to ED for evaluation. Developed severe epigastric pain and nausea in ED. . Physical Exam (per Admitting): General Appearance: WD/WN, + moderate distress Head: normocephalic, atraumatic Eyes: normal inspection, PERRL, EOMI, sclerae normal ENT: normal ENT inspection, hearing grossly normal, pharynx normal Neck: supple, no adenopathy, thyroid normal, no JVD, trachea midline Respiratory/Chest: lungs clear, no respiratory distress, no accessory muscle use Cardiovascular: regular rate, rhythm, no edema, no gallop, no JVD, no murmur , normal peripheral pulses Abdomen/GI: soft, no organomegaly, no pulsatile mass, + pertinent finding ( moderate epigastric tenderness with guarding) Extremities/Musculoskelatal: no calf tenderness, normal capillary refill, no pedal edema, + pertinent finding (tenderness right shoulder anteriorly; wearing immobilizer) Neurologic/Psych: 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 II-XII nml as tested (PERRL, EOMI, no facial palsy), + pertinent finding (somewhat sedated after receiving Dilaudid) Skin: normal color, warm/dry Lymphatic: no adenopathy Hospital Course RIGHT SHOULDER PAIN due to rt shoulder bursitis Orthopedic Surgery consult appreciated no evidence of hematoma or hemarthrosis on rt shoulder s/p rt shoulder steroid injection today pt feels much better symptomatically , less pain able to do range of motion on rt shoulder pt is started on Celebrex -cont for 2 weeks Coumadin resumed out pt follow up with Orthopedics as need for rt shoulder pain /bursitis for repeat intra articular steroid injection HX OF FACTOR V LEIDEN /VTE on chronic Coumadin presented with INR > 8 no evidence of hemarthrosis on Rt shoulder on CT given IV Vit K 10 mg in ED for elevated INR concern for spontaneous rt shoulder hemarthrosis INR 1.1 today Coumadin resumed , will have repeat PT/INR check on 07/25/16 cont to follow up at anticoagulation clinic for further dose adjustment RHEUMATOID ARTHRITIS Continue hydroxychloroquine. follows with Rheumatology Dr Pederson has follow up appointment scheduled on August 2016 VTE PROPHYLAXIS Coumadin resumed out pt Lab work for PT./INR check on Sunday07/25/16 RESUSCITATION STATUS Full resuscitation. DISPOSITION Discharge to home today Family Medicine follow-up with Dr. Guillaume. will continue to follow up with Anticoagulation clinic at [facility] Total time spent on discharge = 40 MINS This includes examination of the patient, discharge planning, medication reconciliation, and communication with other providers. Discharge Instructions Discharge Instructions Date of Service Jul 23, 2016. Admission Reason for Admission: Hemarthrosis, Right Shoulder Discharge Discharge Diagnosis / Problem: RIGHT SHOULDER BRUSITIS Discharge Goals Goal(s): Decrease discomfort, Improve function, Increase independence, Diagnostic testing, Therapeutic intervention Activity Recommendations Activity Limitations: as noted below ( TOLERATED ) Lifting Limitations: gradually increase as tolerated (RT ARM MOVEMENT ) Shower/Bathe: no limitations Driving or Machine Use: no limitations . Instructions / Follow-Up Instructions / Follow-Up HOSPITAL FOLLOW UP WITH ON 07/28/2016 @ 11:[address] Geoff Guillaume MD Family Practice [facility] RESUME YOUR OUT PATIENT COUMADIN DOSE DO NOT TAKE ASPIRIN , ALEVE , MOTRIN , NAPROXEN -MAY CAUSE INCREASE BLEEDING TAKE CELEBREX WITH FULL STOMACH CONTINUE TO TAKE PLAQUENIL PLEASE NOTIFY YOUR FAMILY PHYSICIAN IF YOU NOTICE DARK /TARRY COLOURED STOOL - SIGN OF BLEEDING IN STOMACH PLEASE CONTINUE TO FOLLOW UP WITH ANTICOAGULATION CLINIC AT [facility] FOR CONTINUED FOLLOW UP OF PT/INR LAB WORK: PT/INR ON Sunday07/25/16 Current Hospital Diet Patient's current hospital diet: AHA Diet (Heart Healthy) Discharge Diet Recommended Diet: Regular Diet Pending Studies Studies pending at discharge: yes (INR CHECK ) List of pending studies: PT/INR CHECK ON Sunday07/25/16 Medical Emergencies . Who to Call and When: Medical Emergencies: If at any time you feel your situation is an emergency, please call 911 immediately. . Non-Emergent Contact Non-Emergency issues call your: Primary Care Provider . . "Provider Documentation" section prepared by Kelly Mendoza. VTE Core Measure Inpt VTE Proph given/why not?: Warfarin (Coumadin), T.E.DBrennen Lemus, SCD's Additional Copies To Geoff Guillaume M.D.([facility]) Dereck Quinonez M.D.
[2016-07-24] MEDS ORDERED: BACITRACIN OINT 15 GM TUBE EXT SCH (09:00)
== END 2016-07-23 17:13 | disposition home or self-care (01) | DRG 558 ==
LOC: ENRESERVTM → ENRESERVDT → C.EDB 01:51 → C.MSW 06:27
PROVIDERS: ADMIT Hospitalist; ATTEND Hospitalist
DX: M75.51 Bursitis of right shoulder (principal); D68.51 Activated protein C resistance; M06.9 Rheumatoid arthritis, unspecified; D50.9 Iron deficiency anemia, unspecified; E78.5 Hyperlipidemia, unspecified; E11.9 Type 2 diabetes mellitus without complications; R10.9 Unspecified abdominal pain; Z96.0 Presence of urogenital implants; Z87.891 Personal history of nicotine dependence; Z86.69 Personal history of other diseases of the nervous system and sense organs; Z79.899 Other long term (current) drug therapy; Z86.718 Personal history of other venous thrombosis and embolism; Z79.01 Long term (current) use of anticoagulants; Z98.84 Bariatric surgery status

== ENCOUNTER → 2016-08-08 | Outpatient (CLI) | payer OTHER ==
[~2016-08-08] MED LIST changes: +AMOX875T PO; +CLB100 PO; +CLIN300C2 PO; +FAMO20TA11 PO; +FAMO20TA12 PO; +HYDR-5688 PO; +PRED20TA PO; +TRAZ50TA35 PO
== END | disposition home or self-care (01) ==
LOC: C.PATHSPEC 16:43
PROVIDERS: ATTEND Dermatology
DX: B08.1 Molluscum contagiosum (principal)

== ENCOUNTER → 2016-08-15 | Outpatient (CLI) | payer OTHER ==
[2016-08-15 08:17] LABS: INR 1.1 (0.9-1.1); PROTHROMBIN TIME (PATIENT) 11.7 SECONDS (9.0-12.0)
== END | disposition home or self-care (01) ==
LOC: C.LAB 07:51
PROVIDERS: ATTEND Pain Medicine Interventional Pain Medicine
DX: Z51.81 Encounter for therapeutic drug level monitoring (principal); Z79.01 Long term (current) use of anticoagulants

== ENCOUNTER 2016-11-06 22:53 | Emergency (ER) | payer OTHER ==
[~2016-11-06] VITALS: Ht 165.1 cm; Wt 92.3 kg
[~2016-11-06 22:53] MED LIST changes: -AMOX875T PO; -CLIN300C2 PO; -FAMO20TA11 PO; -HYDR-5688 PO; -PRED20TA PO; -TRAZ50TA35 PO
[2016-11-06 22:58] VITALS: TEMP 36.5; Ht 165.1 cm; Wt 92.3 kg
[2016-11-06] MEDS ORDERED: DIPHTHERIA/TETANUS/PERTUSSIS 0.5 ML SYR/VIAL IM. ONE (23:15)
[2016-11-06] MEDS ORDERED: LIDOCAINE/EPINEPHRINE 1% 20 ML VIAL INFIL ONE (23:15)
[2016-11-06] MEDS ORDERED: FAMO20TA11 PO (23:20)
[2016-11-06] MEDS ORDERED: CLB100 PO (23:20)
[2016-11-07] MEDS ORDERED: AMOX875T PO (00:06)
--- NOTE | 2016-11-07 00:07 | EMERGENCY ROOM VISIT NOTE ---
ED Visit Note First contact with patient: 23:01 CHIEF COMPLAINT: Animal bite HISTORY OF PRESENT ILLNESS: This 51-year-old female patient presents to the emergency department ambulatory after they sustained a dog bite to the right hand. The patient states that her was holding his puppy when she attempted to pet the puppy and it bit her hand. The patient reports that the animal's immunizations are up-to-date. The patient complains of sharp and 9/10 pain at the site of the injury. Pain is worse with movement. Tetanus status is not up to date. REVIEW OF SYSTEMS: A 6 system review of systems was completed with positives and pertinent negatives listed in the HPI. ALLERGIES: Latex, pantoprazole, penicillin VK (rash as a child), sulfa antibiotics, tetracyclines MEDICATIONS: See med list PMH: Factor V Leiden disorder PHYSICAL EXAM: Vital Signs reviewed, see Nurse's notes, vital signs stable. GENERAL: This is a 51-year-old female, awake, alert, well appearing, no acute distress. Non toxic in appearance. MUSCULOSKELETAL: There is a 1.5 cm laceration to the right palm over the thenar eminence. No joint space, tendon, or vascular involvement. Distal pulses intact. SKIN: No signs of infection. NEURO: No sensory or motor deficits noted over all dermatomes and myotomes tested. EMERGENCY DEPARTMENT COURSE AND DECISION MAKING: I examined the patient. Laceration repair was performed as noted below. Patient was given Adacel booster. She will be placed on Augmentin. Of note, the patient does have a documented penicillin allergy, but states that she had a rash once as a child and has had amoxicillin multiple times since then without any reactions. Verbal consent was obtained to perform the procedure. Using sterile technique the wound was cleaned with Betadine. The area was sterilely draped. 2 ml of 1 % buffered lidocaine with epinephrine was used to anesthetize the right hand laceration. Once the patient was anesthetized, the wound was copiously irrigated under pressure with sterile saline. The wound was explored and there were no deep structures injured such as tendons, bone, or significant blood vessels. The laceration was repaired loosely using 1 simple interrupted 4-0 nylon suture with the wound edges being well approximated. The patient tolerated the procedure well. Hemostasis was achieved. The area was cleaned with sterile saline and dressed with bacitracin ointment and bandage. The patient verbalized her understanding of discharge instructions and the patient was discharged home in good condition. Medication reconciliation: I attest that I have personally reviewed the patient 's current medication list. Blood Pressure Screening: Patient was found to have a slightly elevated blood pressure due to circumstances. I do not believe that the patient requires hypertension monitoring. DIAGNOSIS: Dog bite Problem List Medical Problems: (1) Anemia, iron deficiency Status: Chronic (2) Cholelithiasis Status: Chronic (3) Endometriosis Status: Chronic (4) Epigastric pain Status: Resolved (5) Factor V Leiden mutation Status: Chronic (6) GERD (gastroesophageal reflux disease) Status: Chronic (7) Gestational diabetes, diet controlled Status: Chronic (8) H/O deep venous thrombosis Status: Chronic (9) HLD (hyperlipidemia) Status: Chronic (10) Lumbago Status: Chronic (11) Migraine with aura Status: Chronic (12) RUQ abdominal pain Status: Resolved (13) Subtherapeutic international normalized ratio (INR) Status: Resolved Surgical Problems: (1) breast needle biopsy Permanent Comment: sclerotic fibroadenomatoid nodule with microcalcifications Status: Chronic (2) bunion surgery Status: Chronic (3) H/O colonoscopy Status: Chronic (4) H/O esophagogastroduodenoscopy Status: Chronic (5) H/O gastric bypass Status: Chronic (6) History of carpal tunnel surgery Status: Chronic (7) History of kidney surgery Status: Chronic (8) History of ureter stent Status: Chronic Current/Historical Medications Scheduled Amoxicillin & Pot Clavulanate (Augmentin 875-125 mg), 1 TAB PO BID Celecoxib (Celebrex), 100 MG PO BID Famotidine (Pepcid), 20 MG PO DAILY Hydroxychloroquine Sulfate (Hydroxychloroquine Sulfat), 400 MG PO HS Warfarin Sodium (Warfarin Sodium), 5 MG PO 4XWK Warfarin Sodium (Warfarin Sodium), 7.5 MG PO 3XWK Allergies Coded Allergies: Pantoprazole (Verified Allergy, Intermediate, RASH, 11/06/16) Penicillin V (Verified Allergy, Intermediate, MILD HIVES, 11/06/16) Tetracyclines (Verified Allergy, Mild, RASH, 11/06/16) Latex (Verified Allergy, Unknown, RASH, 11/06/16) Sulfa Antibiotics (Verified Adverse Reaction, Mild, HEADACHES, 11/06/16) Vital Signs Date Time Temp Pulse Resp B/P (MAP) Pulse Ox O2 Delivery O2 Flow Rate FiO2 11/07/16 00:11 59 18 120/88 98 11/06/16 22:58 36.5 84 16 143/87 99 Room Air Medications Administered Medications (Trade) Dose Ordered Sig/Huseyin Route Start Time Stop Time Status Last Admin Dose Admin Diphtheria/ Pertussis/Tetanus Vacc (Adacel Inj) 0.5 ml ONCE ONCE IM. 11/06/16 23:15 11/06/16 23:16 DC 11/06/16 23:39 0.5 ML Amoxicillin/ Clavulanate Potassium (Augmentin 875MG Home Pack) 1 homepack UD ONCE PO 11/07/16 00:15 11/07/16 00:16 DC 11/07/16 00:09 1 HOMEPACK Departure Information Impression Primary Impression: Dog bite Dispostion Home / Self-Care Condition GOOD Prescriptions Amoxicillin & Pot Clavulanate (Augmentin 875-125 mg) 1 Tab Tab 1 TAB PO BID for 4 Days, #8 TAB Prov: Natalia Thornton ., THO 11/07/16 Referrals Geoff Guillaume M.D.([facility]) (PCP) Patient Instructions My [facility] Additional Instructions You were prescribed Augmentin to be taken twice daily for 5 days. This is an antibiotic. All antibiotics have the potential to cause diarrhea. Stop this medication and contact a medical provider if you were to develop any significant adverse side effects including: wheezing, shortness of breath, passing out, vomiting, or a diffuse rash. Always take antibiotics as directed and COMPLETE the ENTIRE course regardless of the improvement of your symptoms. Suture removal in 12-14 days. For pain control, you can use the following [id number]-gyx-dawmdgl medicines (if >12 yo): - Regular strength (325mg/tab) Tylenol (acetaminophen) 2 tabs every 4-6 hours as needed. Do not exceed 12 tablets in a 24 hour period. Avoid taking more than 4 grams (4000 mg) of Tylenol per day. This includes any other sources of acetaminophen you may take on a regular basis. - Regular strength (200 mg/tab) Advil (ibuprofen) 1-2 tabs every 4-6 hours as needed. Do not exceed a dose of 3200 mg per day. Proper wound care is essential for adequate wound healing and infection prevention. You can shower and clean the wound with soap and water. Do not scour over the wound, pat dry with a towel. Do not submerse the wound (i.e. bathe or dish wash) until the wound has fully healed. You can use an antibiotic ointment with a dressing over the wound for the next 3-4 days. After this time you may leave the wound dry and open to the air. Return here for any swelling, redness, fevers or any other new/vomiting symptoms. Problem Qualifiers Primary Impression: Dog bite Encounter type: initial encounter Qualified Codes: W54.0XXA - Bitten by dog , initial encounter
[2016-11-07 00:11] VITALS: BP 120/88; PULSE 59; O2SAT 98
[2016-11-07] MEDS ORDERED: AMOXICIL/CLAVU 875MG HOME PACK PO ONE (00:15)
== END 2016-11-07 00:12 | disposition home or self-care (01) ==
LOC: C.EDB 22:54 → C.EDA 11-07 00:12
DX: S61.451A Open bite of right hand, initial encounter (principal); W54.0XXA Bitten by dog, initial encounter; D50.9 Iron deficiency anemia, unspecified; K80.20 Calculus of gallbladder without cholecystitis without obstruction; D68.51 Activated protein C resistance; K21.9 Gastro-esophageal reflux disease without esophagitis; Z86.718 Personal history of other venous thrombosis and embolism; E78.5 Hyperlipidemia, unspecified; G43.909 Migraine, unspecified, not intractable, without status migrainosus; Z98.84 Bariatric surgery status; Z79.01 Long term (current) use of anticoagulants; Z79.899 Other long term (current) drug therapy

== ENCOUNTER 2017-03-16 20:04 | Emergency (ER) | payer OTHER ==
[~2017-03-16] VITALS: Ht 165.1 cm; Wt 95.4 kg
[~2017-03-16 20:04] MED LIST changes: +FAMO20TA11 PO; -FAMO20TA12 PO
[2017-03-16 20:08] VITALS: Ht 165.1 cm; Wt 95.4 kg
--- NOTE | 2017-03-16 20:25 | EMERGENCY ROOM VISIT NOTE ---
History Report prepared by Florinda: Samuel Young Under the Supervision of: Dr. Praful Vázquez M.D. First contact with patient: 20:14 Chief Complaint: SHOULDER PAIN Stated Complaint: L SHOULDER PAIN,POSSIBLE BURSISTIS History of Present Illness The patient is a 51 year old female who presents to the Emergency Room with complaints of constant left-sided shoulder pain beginning 8 hours ago. The patient states that she woke up this morning and felt fine, but started to experience pain during her shift today. She notes that she took Tylenol and iced her shoulder with no relief to her symptoms. She reports that her pain worsens with pressure and when she lifts her left arm. No fever, no trauma. She rates her pain as a 10/10. Source of History: patient Onset: 8 hours ago Position: shoulder (left) Symptom Intensity: 10/10 Modifying Factors (Worsening): other (pressure and lifting upwards) Note: The patient also complains of numbness and tingling in three fingers on her left hand. Review of Systems See HPI for pertinent positives & negatives. A total of 3 systems reviewed and were otherwise negative. Past Medical & Surgical Medical Problems: (1) Anemia, iron deficiency (2) Cholelithiasis (3) Endometriosis (4) Epigastric pain (5) Factor V Leiden mutation (6) GERD (gastroesophageal reflux disease) (7) Gestational diabetes, diet controlled (8) H/O deep venous thrombosis (9) HLD (hyperlipidemia) (10) Lumbago (11) Migraine with aura (12) RUQ abdominal pain (13) Subtherapeutic international normalized ratio (INR) Surgical Problems: (1) breast needle biopsy (2) bunion surgery (3) H/O colonoscopy (4) H/O esophagogastroduodenoscopy (5) H/O gastric bypass (6) History of carpal tunnel surgery (7) History of kidney surgery (8) History of ureter stent Family History Diabetes mellitus FH: heart disease FATHER FH: rheumatoid arthritis FATHER Social History Smoking Status: Never Smoker Alcohol Use: occasionally Drug Use: none Marital Status: Housing Status: lives with family Occupation Status: employed Current/Historical Medications Scheduled Clindamycin Hcl (Cleocin), 300 MG PO TID Hydroxychloroquine Sulfate (Hydroxychloroquine Sulfat), 400 MG PO HS Prednisone (Prednisone), 0 PO DAILY Warfarin Sodium (Warfarin Sodium), 5 MG PO 4XWK Warfarin Sodium (Warfarin Sodium), 7.5 MG PO 3XWK Scheduled PRN Hydrocodone/Acetaminophen 5MG/325MG ([place] 5MG/325MG), 1 TABLET PO Q6H PRN for Pain Trazodone Hcl (Trazodone), 50-100 MG PO HS PRN for Sleep Allergies Coded Allergies: Pantoprazole (Verified Allergy, Intermediate, RASH, 11/06/16) Penicillin V (Verified Allergy, Intermediate, MILD HIVES, 11/06/16) Tetracyclines (Verified Allergy, Mild, RASH, 11/06/16) Latex (Verified Allergy, Unknown, RASH, 11/06/16) Sulfa Antibiotics (Verified Adverse Reaction, Mild, HEADACHES, 11/06/16) Physical Exam Vital Signs Date Time Temp Pulse Resp B/P (MAP) Pulse Ox O2 Delivery O2 Flow Rate FiO2 03/16/17 22:14 65 20 142/75 97 03/16/17 20:08 79 18 153/90 99 Room Air Physical Exam GENERAL: Sitting on stretcher, in no apparent distress. NEURO: Awake and alert, oriented x3, no focal motor deficits. EXTREMITIES: Tender over left shoulder laterally, no evidence for dislocation, no rash, strong distal left radial pulse. Medical Decision & Procedures ER Provider Diagnostic Interpretation: Radiology results as stated below per my review and radiologist interpretation: L SHOULDER MIN 2 VIEWS ROUTINE FINDINGS: Alignment of the left shoulder is anatomic. There is no fracture or osseous lesion. There is slight spurring of the greater tuberosity. There is mild arthritis of the acromioclavicular joint. IMPRESSION: 1. No acute fracture or dislocation of the left shoulder. 2. Mild osteoarthritis of the left acromioclavicular joint with subacromial spurring. Electronically signed by: Mckay Mansfield M.D. 03/16/2017 8:48 PM Laboratory Results Test 03/16/17 20:45 Prothrombin Time 78.9 SECONDS (9.0-12.0) Prothromb Time International Ratio 6.8 (0.9-1.1) Activated Partial Thromboplast Time 43.1 SECONDS (21.0-31.0) Partial Thromboplastin Ratio 1.7 Laboratory results reviewed by me. Medications Administered Medications (Trade) Dose Ordered Sig/Huseyin Route Start Time Stop Time Status Last Admin Dose Admin Prednisone (PredniSONE TAB) 60 mg NOW STAT PO 03/16/17 21:48 03/16/17 21:51 DC 03/16/17 22:08 60 MG Oxycodone HCl (Roxicodone Immediate Rel 5MG Home Pack) 1 homepack UD ONCE PO 03/16/17 22:00 03/16/17 22:01 DC 03/16/17 22:07 1 HOMEPACK ED Course 2017: The patient was evaluated in room D4. A complete history and physical exam was performed. 2128: I reevaluated and updated the patient. 2131: I spoke to Dr. Doshi - Orthopedics. He said put her in a sling and on oral steroids. 2147: Prednisone 60mg PO 2199: Oxycodone HCl 1 homepack PO 2205: Reevaluated the patient. Discussed results and discharge instructions: She verbalized understanding and agreement. The patient is ready for discharge. Medical Decision Differential diagnoses include: Calcific tendonitis, dislocation, bursitis, intraarticular bleeding, neurovascular compromise. The patient presents with left shoulder pain. She reports no trauma. On exam, there is no swelling or erythema. The patient was neurovascularly intact distally in the left upper extremity. She had pain with motion of the left shoulder joint. Films of the left shoulder show some subtle arthritis, no evidence for calcific tendinitis, no fracture and no dislocation. The patient's INR is quite high at 6.8. I spoke with orthopedics. The patient was placed in a sling, she was given oral prednisone. She is being discharged with follow-up in the outpatient orthopedic office. The patient will hold her Coumadin-she needs a repeat INR check on Sunday. Ice to the area was suggested. She will wear a sling. A tapering dose of prednisone will be provided. The cause for the pain is unclear but certainly bleeding into the joint is a possibility. Bursitis as a possibility. As per orthopedics, the care would be the same. The patient was discharged to return for worsening symptoms or fever. No pain medication prescriptions provided as the patient recently filled a [place] prescription. [place] Drug Monitoring Program Search Results: patient reviewed within database Drug Monitoring Findings: The patient received a [place] prescription, #20, filled yesterday. Blood Pressure Screening Patient's blood pressure: Elevated blood pressure Blood pressure disposition: Elevated BP felt to be situational Consults Time Called: 2129 Consulting Physician: Dr. Doshi - Orthopedics Returned Call: 2131 Discussed the patient's case. Impression Primary Impression: Left shoulder pain Additional Impression: Supratherapeutic INR Scribe Attestation The scribe's documentation has been prepared under my direction and personally reviewed by me in its entirety. I confirm that the note above accurately reflects all work, treatment, procedures, and medical decision making performed by me. Departure Information Dispostion Home / Self-Care Prescriptions Prednisone (Prednisone) 20 Mg Tab 0 PO DAILY, #14 TAB 3 TABS DAILY FOR 2 DAYS, THEN 2 TABS DAILY FOR 2 DAYS, THEN 1 TAB DAILY FOR 2 DAYS, THEN 1/2 TAB DAILY FOR 2 DAYS. Prov: Praful Vázquez M.D. 03/16/17 Referrals Geoff Guillaume M.D.([facility]) (PCP) Forms HOME CARE DOCUMENTATION FORM, IMPORTANT VISIT INFORMATION Patient Instructions My [facility] Additional Instructions hold coumadin--recheck INR sunday ice to the shoulder for 30 minutes at a time where the sling for now prednisone as directed use the norco you were prescibed for pain--you can try the oxy ir tab we gave you here instead for tonight call and set up ortho appt--call sunday am Problem Qualifiers
[2017-03-16] MEDS ORDERED: CLIN300C2 PO (20:34)
[2017-03-16] MEDS ORDERED: HYDR-5688 PO (20:34)
[2017-03-16] MEDS ORDERED: TRAZ50TA35 PO (20:36)
--- NOTE | 2017-03-16 20:50 | DIAGNOSTIC IMAGING REPORT ---
L SHOULDER MIN 2 VIEWS ROUTINE CLINICAL HISTORY: Left shoulder pain. No recent injury. COMPARISON: None FINDINGS: Alignment of the left shoulder is anatomic. There is no fracture or osseous lesion. There is slight spurring of the greater tuberosity. There is mild arthritis of the acromioclavicular joint. IMPRESSION: 1. No acute fracture or dislocation of the left shoulder. 2. Mild osteoarthritis of the left acromioclavicular joint with subacromial spurring. Electronically signed by: Mckay Mansfield M.D. 03/16/2017 8:48 PM Dictated Date/Time: 03/16/2017 8:47 PM
[2017-03-16 21:17] LABS: PARTIAL THROMBOPLASTIN RATIO 1.7
[2017-03-16 21:19] LABS: INR 6.8 (0.9-1.1); PROTHROMBIN TIME (PATIENT) 78.9 SECONDS (9.0-12.0)
[2017-03-16] MEDS ORDERED: OXYCODONE IR HOME PACK PO ONE (22:00)
[2017-03-16] MEDS ORDERED: PRED20TA PO (22:04)
[2017-03-16 22:14] VITALS: BP 142/75; PULSE 65; O2SAT 97
[2017-03-16] MEDS ORDERED: WARF-246 PO (23:36)
== END 2017-03-16 22:16 | disposition home or self-care (01) ==
LOC: C.EDB 20:05 → C.EDD 22:16
DX: M25.512 Pain in left shoulder (principal); E78.5 Hyperlipidemia, unspecified; K21.9 Gastro-esophageal reflux disease without esophagitis; D68.51 Activated protein C resistance; D64.9 Anemia, unspecified; Z86.718 Personal history of other venous thrombosis and embolism; Z98.84 Bariatric surgery status; Z98.890 Other specified postprocedural states; Z79.01 Long term (current) use of anticoagulants; Z79.899 Other long term (current) drug therapy; Z88.0 Allergy status to penicillin; Z88.2 Allergy status to sulfonamides; Z88.8 Allergy status to other drugs, medicaments and biological substances; Z91.040 Latex allergy status; Z83.3 Family history of diabetes mellitus; Z82.49 Family history of ischemic heart disease and other diseases of the circulatory system

== ENCOUNTER 2017-04-05 21:59 | Emergency (ER) | payer OTHER ==
[~2017-04-05] VITALS: Ht 165.1 cm; Wt 95.1 kg
[~2017-04-05 21:59] MED LIST changes: -CPR/500 PO; -DOXY100C76 PO
[2017-04-05 22:05] VITALS: TEMP 36.8; Ht 165.1 cm; Wt 95.1 kg
[2017-04-05] MEDS ORDERED: CPR/500 PO (22:48)
--- NOTE | 2017-04-05 22:59 | EMERGENCY ROOM VISIT NOTE ---
History Report prepared by Florinda: Adrian New Under the Supervision of: Dr. Halina Salazar D.O. First contact with patient: 22:34 Chief Complaint: WOUND INFECTION Stated Complaint: WOUND INFEC R FOOT History of Present Illness The patient is a 51 year old female who presents to the Emergency Room with complaints of a worsening right foot infection over the past week. She says that she originally had a procedure on March 12 to remove a cyst on the right foot, but then on March 19, a hematoma was found on the foot, and it was aspirated that day. She notes that she then started getting an infection on the foot, and was started on Keflex 3 days ago. The patient states that she took 3 days of the Keflex, but was then switched to Cipro today. She adds that she has been nauseous, but denies any vomiting, fevers, or chills. She says that her foot was swabbed today. Source of History: patient Onset: Over past week Position: foot (right) Quality: other (infection) Timing: worsening Associated Symptoms: + nausea, No fevers, No chills, No vomiting Note: No other associated symptoms noted. Review of Systems See HPI for pertinent positives & negatives. A total of 10 systems reviewed and were otherwise negative. Past Medical & Surgical Medical Problems: (1) Anemia, iron deficiency (2) Cholelithiasis (3) Endometriosis (4) Epigastric pain (5) Factor V Leiden mutation (6) GERD (gastroesophageal reflux disease) (7) Gestational diabetes, diet controlled (8) H/O deep venous thrombosis (9) HLD (hyperlipidemia) (10) Lumbago (11) Migraine with aura (12) RUQ abdominal pain (13) Subtherapeutic international normalized ratio (INR) Surgical Problems: (1) breast needle biopsy (2) bunion surgery (3) H/O colonoscopy (4) H/O esophagogastroduodenoscopy (5) H/O gastric bypass (6) History of carpal tunnel surgery (7) History of kidney surgery (8) History of ureter stent Family History Diabetes mellitus FH: heart disease FATHER FH: rheumatoid arthritis FATHER Social History Smoking Status: Never Smoker Alcohol Use: occasionally Drug Use: none Marital Status: Housing Status: lives with family Occupation Status: employed Current/Historical Medications Scheduled Ciprofloxacin (Ciprofloxacin HCl), 500 MG PO BID Doxycycline Monohydrate (Monodox), 100 MG PO BID Hydroxychloroquine Sulfate (Hydroxychloroquine Sulfat), 400 MG PO HS Warfarin Sodium (Warfarin Sodium), 5 MG PO 4XWK Warfarin Sodium (Warfarin Sodium), 7.5 MG PO 3XWK Scheduled PRN Hydrocodone/Acetaminophen 5MG/325MG ([place] 5MG/325MG), 1 TABLET PO Q6H PRN for Pain Trazodone Hcl (Trazodone), 50-100 MG PO HS PRN for Sleep Allergies Coded Allergies: Pantoprazole (Verified Allergy, Intermediate, RASH, 04/05/17) Penicillin V (Verified Allergy, Intermediate, MILD HIVES, 04/05/17) Tetracyclines (Verified Allergy, Mild, RASH, 04/05/17) Latex (Verified Allergy, Unknown, RASH, 04/05/17) Sulfa Antibiotics (Verified Adverse Reaction, Mild, HEADACHES, 04/05/17) Physical Exam Vital Signs Date Time Temp Pulse Resp B/P (MAP) Pulse Ox O2 Delivery O2 Flow Rate FiO2 04/06/17 05:56 68 16 93/64 97 04/06/17 05:21 67 16 97/65 96 Room Air 04/06/17 03:35 78 18 110/70 96 Room Air 04/06/17 00:41 70 18 123/72 97 Room Air 04/05/17 22:05 36.8 90 18 119/84 99 Room Air Physical Exam GENERAL: alert, well appearing, well nourished, no distress, non-toxic NECK: supple, no nuchal rigidity, no adenopathy, non-tender LUNGS: Clear to auscultation. Normal chest wall mechanics HEART: no murmurs, S1 normal and S2 normal ABDOMEN: abdomen soft, non-tender, normo-active bowel sounds, no masses, no rebound or guarding. SKIN: no rashes and no bruising UPPER EXTREMITIES: upper extremities are grossly normal. LOWER EXTREMITIES: Right foot dorsal lateral aspect has a 3 cm incision with some dehiscence and drainage noted. There is surrounding erythema. No crepitus, no evidence of ascending lymphangitis. Mild edema is noted to area. NEURO EXAM: Normal sensorium, cranial nerves II-XII grossly intact, normal speech, no gross weakness of arms, no gross weakness of legs. Medical Decision & Procedures ER Provider Diagnostic Interpretation: CT results have been interpreted by the radiologist and reviewed by me. CT RIGHT FOOT: No acute or healing. No drainable fluid collections. Dorsal fluid collection centered about the fourth digit measures 20 x 8 mm with overlying skin ulceration or defect. This may represent abscess in the right clinical setting. Radiologist: Panchito Rodriguez M.D. ADDENDUM - Added by Panchito Rodriguez MD Dorsal fluid collection centered about the fourth digit (proximal metatarsal level) measures 20 x 8 mm with overlying skin ulceration or defect. This may represent abscess in the right clinical setting. No acute or healing fracture or malalignment. No CT evidence for osteomyelitis. Calcaneal enthesopathy. Laboratory Results 04/05/17 22:55 Red Blood Count 4.64, Mean Corpuscular Volume 84.9, Mean Corpuscular Hemoglobin 27.2, Mean Corpuscular Hemoglobin Concent 32.0, Mean Platelet Volume 10.0, Neutrophils (%) (Auto) 60.4, Lymphocytes (%) (Auto) 25.4, Monocytes (%) (Auto) 11.4, Eosinophils (%) (Auto) 2.0, Basophils (%) (Auto) 0.8, Neutrophils # (Auto ) 3.59, Lymphocytes # (Auto) 1.51, Monocytes # (Auto) 0.68, Eosinophils # (Auto ) 0.12, Basophils # (Auto) 0.05 04/05/17 22:55 Test 04/05/17 22:55 White Blood Count 5.95 K/uL (4.8-10.8) Red Blood Count 4.64 M/uL (4.2-5.4) Hemoglobin 12.6 g/dL (12.0-16.0) Hematocrit 39.4 % (37-47) Mean Corpuscular Volume 84.9 fL (80-100) Mean Corpuscular Hemoglobin 27.2 pg (25-34) Mean Corpuscular Hemoglobin Concent 32.0 g/dl (32-36) Platelet Count 234 K/uL (130-400) Mean Platelet Volume 10.0 fL (7.4-10.4) Neutrophils (%) (Auto) 60.4 % Lymphocytes (%) (Auto) 25.4 % Monocytes (%) (Auto) 11.4 % Eosinophils (%) (Auto) 2.0 % Basophils (%) (Auto) 0.8 % Neutrophils # (Auto) 3.59 K/uL (1.4-6.5) Lymphocytes # (Auto) 1.51 K/uL (1.2-3.4) Monocytes # (Auto) 0.68 K/uL (0.11-0.59) Eosinophils # (Auto) 0.12 K/uL (0-0.5) Basophils # (Auto) 0.05 K/uL (0-0.2) RDW Standard Deviation 50.6 fL (36.4-46.3) RDW Coefficient of Variation 16.4 % (11.5-14.5) Immature Granulocyte % (Auto) 0.0 % Immature Granulocyte # (Auto) 0.00 K/uL (0.00-0.02) Prothrombin Time 12.3 SECONDS (9.0-12.0) Prothromb Time International Ratio 1.2 (0.9-1.1) Anion Gap 5.0 mmol/L (3-11) Est Creatinine Clear Calc Drug Dose 86.3 ml/min Estimated GFR () 89.4 Estimated GFR (Non- 77.1 BUN/Creatinine Ratio 17.7 (10-20) Calcium Level 8.6 mg/dl (8.5-10.1) Total Bilirubin 0.7 mg/dl (0.2-1) Aspartate Amino Transf (AST/SGOT) 35 U/L (15-37) Alanine Aminotransferase (ALT/SGPT) 32 U/L (12-78) Alkaline Phosphatase 100 U/L (45-117) Total Protein 7.4 gm/dl (6.4-8.2) Albumin 3.6 gm/dl (3.4-5.0) Globulin 3.8 gm/dl (2.5-4.0) Albumin/Globulin Ratio 0.9 (0.9-2) Laboratory results per my review. Medications Administered Medications (Trade) Dose Ordered Sig/Huseyin Route Start Time Stop Time Status Last Admin Dose Admin Acetaminophen (Tylenol Tab) 1,000 mg NOW STAT PO 04/06/17 00:46 04/06/17 00:47 DC 04/06/17 01:01 1,000 MG Vancomycin HCl 1500 mg/Sodium Chloride 530 ml @ 200 mls/hr ONE STAT IV 04/06/17 02:15 04/06/17 04:53 DC 04/06/17 02:31 200 MLS/HR Enoxaparin Sodium (Lovenox Inj) 100 mg STK-MED ONCE .ROUTE 04/06/17 02:54 04/06/17 02:55 DC 04/06/17 03:35 100 MG Ketorolac Tromethamine (Toradol Inj) 15 mg NOW STAT IV 04/06/17 03:57 04/06/17 03:58 DC 04/06/17 04:05 15 MG Warfarin Sodium (Coumadin Tab) 5 mg STK-MED ONCE .ROUTE 04/06/17 04:03 04/06/17 04:04 DC 04/06/17 04:06 2.5 MG ED Course 2249: The patient was evaluated in room B2. A complete history and physical exam was performed. 0046: Ordered Tylenol Tab 1000 mg PO. 0115: I reevaluated and updated the patient. 0339: Patient well-appearing here, wound reexamined and no active drainage and no expansion of surrounding erythema. Patient afebrile. Aware of all results. Patient has scheduled appointment with surgeon in less than 12 hours. Medical Decision Differential diagnosis includes etiologies such as cellulitis, abscess, MRSA infection, DVT, necrotizing fasciitis, dermatitis, drug eruption, as well as others were entertained. No evidence of nec fasc. Collection noted on CT smaller than pt description of original surgery and subsequent hematoma, but concern yet for resolving fluid collection vs abscess. No systemic sx of infection. Unclear why pt changed to cipro from keflex. Vancomycin ordered originally due to concern for severe infection or osteo. No osteo on CT. Pt with appt with foot surgeon in less than 12 hours. VS stable. Pt written for doxycycline given sulfa allergy. No hx of MRSA but slightly increased risk given job. Pt given copy of CT to take with to appt. AWare of all results. Discussed keeping appt, sx to watch/ return for, possible side effects of antibiotics, risks given coumadin use. Pt INR subtherapeutic and she admits to missing two doses. Given lovenox and additional coumadin to bridge and advised to have a recheck in 2 days. Pt well appearing despite condition. Given home pack of meds as pt planned on driving home. Medication Reconcilliation Current Medication List: was personally reviewed by me Blood Pressure Screening Patient's blood pressure: Normal blood pressure Impression Primary Impression: Cellulitis Additional Impressions: Abscess Subtherapeutic anticoagulation Scribe Attestation The scribe's documentation has been prepared under my direction and personally reviewed by me in its entirety. I confirm that the note above accurately reflects all work, treatment, procedures, and medical decision making performed by me. Departure Information Dispostion Home / Self-Care Prescriptions Doxycycline Monohydrate (Monodox) 100 Mg Cap 100 MG PO BID for 7 Days, #14 CAP Prov: Halina Salazar, DO 04/06/17 Referrals Geoff Guillaume M.D. ([facility]) (PCP) Patient Instructions My [facility] Additional Instructions Please elevate the leg when at rest, and continue to monitor for changes. Please keep your appointment today with your foot surgeon, and discuss your wound as well as current antibiotics. Your wound culture is pending, and a preliminary result may be available later today. If you develop worsening pain , worsening swelling, increased redness or drainage, pink or red streaking up your foot and leg, fevers, nausea or vomiting, or you have any other new concerns, please return the emergency room. Your INR tonight was 1.2. You were given additional Coumadin and a dose of Lovenox to help bridge. Please have your INR rechecked in 2-3 days. Problem Qualifiers Primary Impression: Cellulitis Site of cellulitis: extremity Site of cellulitis of extremity: lower extremity Laterality: right Qualified Codes: L03.115 - Cellulitis of right lower limb
[2017-04-05 23:28] LABS: BASO % 0.8 %; BASO ABS # 0.05 K/uL (0-0.2); COMPLETE YES; HEMATOCRIT 39.4 % (37-47); LYMPH % 25.4 %; LYMPH ABS # 1.51 K/uL (1.2-3.4); MEAN CELL VOLUME 84.9 fL (80-100); MEAN CORPUSCULAR HEMOGLOBIN 27.2 pg (25-34); MONO % 11.4 %; NEUT % 60.4 %; PLATELET COUNT 234 K/uL (130-400); RED BLOOD COUNT 4.64 M/uL (4.2-5.4); WHITE BLOOD COUNT 5.95 K/uL (4.8-10.8)
[2017-04-05 23:37] LABS: INR 1.2 (0.9-1.1); PROTHROMBIN TIME (PATIENT) 12.3 SECONDS (9.0-12.0)
[2017-04-05 23:45] LABS: BUN/CREATININE RATIO 17.7 (10-20); CALCIUM 8.6 mg/dl (8.5-10.1); CREATININE 0.86 mg/dl (0.60-1.20); POTASSIUM 3.9 mmol/L (3.5-5.1)
[2017-04-05 23:48] LABS: ALB/GLOB RATIO 0.9 (0.9-2)
[2017-04-06] MEDS ORDERED: OPTIRAY 320 IV PRN (00:15)
[2017-04-06] MEDS ORDERED: ACETAMINOPHEN 500 MG TAB PO STA (00:46)
[2017-04-06] MEDS ORDERED: VANCOMYCIN INJ 1,500 MG in SODIUM CHLORIDE 0.9% 500ML 500 ML IV STA (02:15)
[2017-04-06] MEDS ORDERED: ENOXAPARIN 1 MG/KG SQ STA (02:17)
[2017-04-06] MEDS ORDERED: ENOXAPARIN 100 MG/1ML SYR ONE (02:54)
[2017-04-06] MEDS ORDERED: WARFARIN SOD 2.5 MG TAB PO STA (03:45)
[2017-04-06] MEDS ORDERED: KETOROLAC TROMETHAMINE 30 MG/ML VIAL IV STA (03:57)
[2017-04-06] MEDS ORDERED: NORCO 5/325MG HOME PACK PO ONE (04:00)
[2017-04-06] MEDS ORDERED: WARFARIN SOD 5 MG TAB ONE (04:03)
[2017-04-06] MEDS ORDERED: DOXY100C76 PO (04:04)
[2017-04-06 05:56] VITALS: BP 93/64; PULSE 68; O2SAT 97
--- NOTE | 2017-04-06 08:58 | DIAGNOSTIC IMAGING REPORT ---
CT SCAN OF THE RIGHT FOOT WITH IV CONTRAST CLINICAL HISTORY: History of unspecified foot surgery. Nonhealing wound. COMPARISON STUDY: No priors. TECHNIQUE: Following the IV administration of 93 cc of Optiray 320, CT scan of the right foot is performed from the ankle to the base of the foot. Images were reviewed in the axial, sagittal, and coronal planes. IV contrast was administered without complication. A dose lowering technique was utilized adhering to the principles of ALARA. Note that interpretation is suboptimal without plain film correlate. CT DOSE: 206.70 mGy.cm FINDINGS: The skeletal structures are well mineralized. No fracture is seen. There is no bony erosion or periostitis identified. Minimal arthritic change is seen at the first metatarsophalangeal joint. There are dorsal and plantar calcaneal enthesophytes. The ankle joint is maintained. There is no evidence of osteochondral defect in the talar dome. There is maintenance of normal fat in the sinus tarsi. There is no CT evidence of Lisfranc injury. There is subcutaneous soft tissue edema and fluid identified along the dorsal aspect of the foot. No organized/peripherally enhancing fluid collection is seen to indicate abscess. A tiny cutaneous defect is seen at the level of the base of fourth metatarsal which may represent a wound, and there is subcutaneous fluid at the site. The regional vessels appear patent. The regional musculature is normal in bulk. The Achilles tendon is normal in morphology. IMPRESSION: 1. No acute bony abnormality is identified in the right foot. 2. There is dorsal soft tissue edema and subcutaneous fluid, likely representing cellulitis. There is focal fluid at the site of a cutaneous defect which likely represents a wound. There is no definite organized/rim enhancing collection to indicate abscess. Dictated: 04/06/2017 7:20 AM Transcribed: 04/06/2017 8:57 AM Matteo Electronically signed by: Praful Azar M.D. 04/06/2017 8:59 AM Dictated Date/Time: 04/06/2017 7:20 AM
== END 2017-04-06 05:58 | disposition home or self-care (01) ==
LOC: C.EDB 22:00
DX: L03.115 Cellulitis of right lower limb (principal); Z98.890 Other specified postprocedural states; R79.1 Abnormal coagulation profile; D68.51 Activated protein C resistance; K21.9 Gastro-esophageal reflux disease without esophagitis; Z86.718 Personal history of other venous thrombosis and embolism; E78.5 Hyperlipidemia, unspecified; Z98.84 Bariatric surgery status; Z83.3 Family history of diabetes mellitus; Z82.61 Family history of arthritis; Z79.01 Long term (current) use of anticoagulants; Z79.899 Other long term (current) drug therapy

== ENCOUNTER → 2017-04-05 | Outpatient (CLI) | payer OTHER ==
[~2017-04-05] MED LIST changes: -CLB100 PO; +CLIN300C2 PO; +CPR/500 PO; +DOXY100C76 PO; -FAMO20TA11 PO; +HYDR-5688 PO; +PRED20TA PO; +TRAZ50TA35 PO
== END | disposition home or self-care (01) ==
LOC: C.LABSPEC 17:14
PROVIDERS: ATTEND Physician Assistant
DX: S91.309A Unspecified open wound, unspecified foot, initial encounter (principal); X58.XXXA Exposure to other specified factors, initial encounter

== ENCOUNTER 2017-06-27 11:54 | Inpatient (IN) | payer OTHER ==
[~2017-06-27] VITALS: Ht 165.1 cm; Wt 95.4 kg
[~2017-06-27 11:54] MED LIST changes: -CLIN300C2 PO; +CPR/500 PO; -PRED20TA PO
[2017-06-27] MEDS ORDERED: BENZ100C84 PO (12:33)
[2017-06-27] MEDS ORDERED: ALBU18002 INH (12:33)
[2017-06-27 14:19] VITALS: BP 139/83; PULSE 71; TEMP 36.8; O2SAT 99; Ht 165.1 cm; Wt 95.4 kg
[2017-06-27 14:57] VITALS: O2SAT 99
[2017-06-27 14:57] LABS: BASO % 1.4 %; BASO ABS # 0.06 K/uL (0-0.2); EOS % 2.4 %; HEMATOCRIT 37.2 % (37-47); HEMOGLOBIN 11.9 g/dL (12.0-16.0); IG# 0.01 K/uL (0.00-0.02); LYMPH % 25.9 %; MEAN CELL VOLUME 80.5 fL (80-100); MEAN CORPUSCULAR HEMOGLOBIN 25.8 pg (25-34); MEAN PLATELET VOLUME 9.3 fL (7.4-10.4); MONO % 10.6 %; MONO ABS # 0.45 K/uL (0.11-0.59); NEUT % 59.5 %; NEUT ABS # 2.52 K/uL (1.4-6.5); PLATELET COUNT 214 K/uL (130-400); RED CELL DISTRIBUTION WIDTH CV 15.6 % (11.5-14.5); RED CELL DISTRIBUTION WIDTH SD 45.3 fL (36.4-46.3); WHITE BLOOD COUNT 4.24 K/uL (4.8-10.8)
[2017-06-27 15:04] LABS: INR 1.8 (0.9-1.1); PTT PATIENT 31.9 SECONDS (21.0-31.0)
[2017-06-27 15:25] LABS: ALBUMIN 3.7 gm/dl (3.4-5.0); CALCIUM 8.7 mg/dl (8.5-10.1); CREATININE 0.82 mg/dl (0.60-1.20); POTASSIUM 3.9 mmol/L (3.5-5.1)
[2017-06-27 15:28] LABS: TOTAL PROTEIN 7.4 gm/dl (6.4-8.2)
[2017-06-27] MEDS: ONDANSETRON INJ 2 MG/ML 2 ML VIAL IV PRN (15:59)
[2017-06-27] MEDS ORDERED: OPTIRAY 320 IV PRN (16:15)
[2017-06-27] MEDS: ACETAMINOPHEN IV 100 ML IV PRN (16:23)
[2017-06-27] MEDS: D5W AND LACTATED RINGERS 1,000 ML IV SCH ×2 (16:23→22:53)
--- NOTE | 2017-06-27 18:56 | DIAGNOSTIC IMAGING REPORT ---
CT ABD/PELVIS IV AND ORAL CONT CLINICAL HISTORY: abdominal pain COMPARISON STUDY: 07/22/2016 TECHNIQUE: Following the IV administration of 93 mL of Optiray-320, CT scan of the abdomen and pelvis was performed from the lung bases to the proximal femurs. Images are reviewed in the axial, sagittal, and coronal planes. IV contrast was administered without complication. A dose lowering technique was utilized adhering to the principles of ALARA. CT DOSE: 712.66 mGy.cm FINDINGS: Lower chest: There are minor basilar atelectatic changes. Liver: There is mild central intrahepatic biliary ductal dilatation. No focal masses are visualized. Gallbladder: Surgically absent Spleen: Normal in size and attenuation. Pancreas: Unremarkable. Adrenal glands: Unremarkable. Kidneys: No solid renal masses are visualized. There is a 1 cm lower pole left renal cyst. There is a mildly dilated left renal pelvis. There is no ureteral dilatation. Bowel: There are postsurgical changes of a gastric bypass. There are no transition zones indicate bowel obstruction. There is no acute diverticulitis. There are no findings to indicate acute appendicitis. There is a stable left posterior lateral abdominal wall hernia containing a small portion of descending colon. Peritoneum: There is no intraperitoneal free air or abdominal ascites. Vasculature: The abdominal aorta is normal in course and caliber. Adenopathy: None. Pelvic viscera: The uterus appears surgically absent Skeletal structures: No destructive osseous lesions are seen. IMPRESSION: 1. No acute intra-abdominal or pelvic findings. 2. Surgically absent gallbladder. Mild intrahepatic biliary ductal dilatation, similar to the prior study 3. No evidence of bowel obstruction. No evidence of free air 4. Postsurgical changes are prior gastric bypass 5. Stable dilatation of the left renal pelvis consistent with a chronic UPJ obstruction 6. No acute inflammatory changes Electronically signed by: Irving Wasserman M.D. 06/27/2017 6:55 PM Dictated Date/Time: 06/27/2017 6:49 PM
[2017-06-27] MEDS: HYDROmorphone INJ 0.5 MG/0.5 ML SYR IV PRN (20:07)
[2017-06-27] MEDS ORDERED: ENOXAPARIN 40 MG/0.4 ML SYR SQ SCH (21:00)
[2017-06-27] MEDS: HYDROXYCHLOROQUINE SULFATE 200 MG TAB PO SCH (21:37)
--- NOTE | 2017-06-27 22:21 | History and Physical ---
History & Physical Date & Time of Service: Jun 27, 2017 at ~ 15:00 . Chief Complaint: abdominal pain . Primary Care Physician: Geoff Guillaume M.D.([facility]) . History of Present Illness Source: patient, clinic records, hospital records 51-year-old followed by Dr. Guillaume. History of gallstone pancreatitis, bowel obstruction, and other problems noted below. Erin-en-Y gastric bypass surgery performed in 2008. Cholecystectomy performed in 2016. She developed nausea during the night while working. Experience worsening abdominal bloating and around 6:00 this morning she had worsening pain, nausea, vomiting. No hematemesis. Last bowel movement was 2 days prior to admission; no melena or hematochezia. Had some chills, but no documented fever. Evaluated in clinic this morning. Abdominal films demonstrated a small bowel obstruction. Patient was referred to the hospital for further evaluation and management. Patient also indicates that she has been experiencing dysphagia to solids. She has had esophageal dilatation performed in the past. . Past Medical/Surgical History Chronic and Resolved medical Problems: (1) Anemia, iron deficiency Status: Chronic (2) Endometriosis Status: Chronic (4) Factor V Leiden mutation Status: Chronic (5) GERD (gastroesophageal reflux disease) Status: Chronic (6) H/O deep venous thrombosis Permanent Comment: on coumadin Status: Chronic (7) History of pancreatitis Permanent Comment: 2015 Status: Chronic (8) History of small bowel obstruction Permanent Comment: 2015 Status: Chronic (9) HLD (hyperlipidemia) Status: Chronic (10) Migraine with aura Status: Chronic (11) Rheumatoid arthritis Status: Chronic Surgical Problems: (1) breast needle biopsy Permanent Comment: sclerotic fibroadenomatoid nodule with microcalcifications Status: Chronic (2) H/O colonoscopy Status: Chronic (3) H/O esophagogastroduodenoscopy Status: Chronic (4) H/O gastric bypass Permanent Comment: 2008 Status: Chronic (5) History of carpal tunnel surgery Status: Chronic (6) History of ureter stent Status: Chronic (7) S/P cholecystectomy Permanent Comment: 2015 Status: Chronic . Family History Diabetes mellitus FH: heart disease FATHER FH: rheumatoid arthritis FATHER Social History Smoking Status: Former Smoker Alcohol Use: occasionally Drug Use: none Marital Status: Occupational Status: employed Immunizations History of Influenza Vaccine: Yes History of Tetanus Vaccine?: Unknown History of Pneumococcal: Unknown History of Hepatitis B Vaccine: Unknown Allergies Coded Allergies: Pantoprazole (Verified Allergy, Intermediate, RASH, 04/05/17) Penicillin V (Verified Allergy, Intermediate, MILD HIVES, 04/05/17) Tetracyclines (Verified Allergy, Mild, RASH, 04/05/17) Latex (Verified Allergy, Unknown, RASH, 04/05/17) Sulfa Antibiotics (Verified Adverse Reaction, Mild, HEADACHES, 04/05/17) Home Medications Scheduled Hydroxychloroquine Sulfate (Hydroxychloroquine Sulfat), 400 MG PO HS Warfarin Sodium (Warfarin Sodium), 5 MG PO 4XWK Warfarin Sodium (Warfarin Sodium), 7.5 MG PO 3XWK Scheduled PRN Albuterol Sulfate (Proair Respiclick), 2 PUFFS INH Q4 PRN for SOB/Wheezing Review of Systems Constitutional: + chills, No fever, No weight loss Eyes: No worsening of vision ENT: No nasal symptoms, No sore throat Respiratory: + cough (Recent influenza, now with minimal residual cough), No shortness of breath Cardiovascular: No chest pain, No edema Abdomen: + problem reported (As noted above in HPI) Musculoskeletal: + joint pain (Rheumatoid arthritis) Genitourinary - Female: No dysuria, No hematuria Endocrine: No excessive thirst, No excessive urination Hematologic / Lymphatic: + abnormal bleeding/bruising (Bruises easily) Integumentary: + problem reported (Recently diagnosed squamous cell carcinoma) , No rash Physical Exam Vital Signs Date Time Temp Pulse Resp B/P (MAP) Pulse Ox O2 Delivery O2 Flow Rate FiO2 06/27/17 16:00 Room Air 06/27/17 14:57 99 Room Air 06/27/17 14:19 36.8 71 18 139/83 99 Room Air General Appearance: WD/WN, no apparent distress Head: normocephalic, atraumatic Eyes: normal inspection, PERRL, EOMI, sclerae normal, + pertinent finding ( Conjunctivae clear) ENT: normal ENT inspection, hearing grossly normal Neck: supple, no adenopathy, thyroid normal, trachea midline Respiratory/Chest: lungs clear (To auscultation and percussion), no respiratory distress Cardiovascular: regular rate, rhythm, no edema, no gallop, no JVD, no murmur Abdomen/GI: + pertinent finding (Quiet bowel sounds, slightly distended, soft, mild mid abdominal tenderness without rebound or guarding, no palpable masses or hepatosplenomegaly) Extremities/Musculoskelatal: normal inspection, no calf tenderness, + pertinent finding (No cyanosis) Neurologic/Psych: orchardist II-XII nml as tested (PERRL, EOMI, no facial palsy, no dysarthria), no motor/sensory deficits (Motor strength upper and lower extremities grossly intact), alert, normal mood/affect, oriented x 3 Skin: normal color, warm/dry, no rash Lymphatic: no adenopathy (Cervical) Diagnostics Laboratory Results Results Past 24 Hours Test 06/27/17 14:35 Range/Units White Blood Count 4.24 4.8-10.8 K/uL Red Blood Count 4.62 4.2-5.4 M/uL Hemoglobin 11.9 12.0-16.0 g/dL Hematocrit 37.2 37-47 % Mean Corpuscular Volume 80.5 80-100 fL Mean Corpuscular Hemoglobin 25.8 25-34 pg Mean Corpuscular Hemoglobin Concent 32.0 32-36 g/dl Platelet Count 214 130-400 K/uL Mean Platelet Volume 9.3 7.4-10.4 fL Neutrophils (%) (Auto) 59.5 % Lymphocytes (%) (Auto) 25.9 % Monocytes (%) (Auto) 10.6 % Eosinophils (%) (Auto) 2.4 % Basophils (%) (Auto) 1.4 % Neutrophils # (Auto) 2.52 1.4-6.5 K/uL Lymphocytes # (Auto) 1.10 1.2-3.4 K/uL Monocytes # (Auto) 0.45 0.11-0.59 K/uL Eosinophils # (Auto) 0.10 0-0.5 K/uL Basophils # (Auto) 0.06 0-0.2 K/uL RDW Standard Deviation 45.3 36.4-46.3 fL RDW Coefficient of Variation 15.6 11.5-14.5 % Immature Granulocyte % (Auto) 0.2 % Immature Granulocyte # (Auto) 0.01 0.00-0.02 K/uL Prothrombin Time 18.2 9.0-12.0 SECONDS Prothromb Time International Ratio 1.8 0.9-1.1 Activated Partial Thromboplast Time 31.9 21.0-31.0 SECONDS Partial Thromboplastin Ratio 1.2 Sodium Level 137 136-145 mmol/L Potassium Level 3.9 3.5-5.1 mmol/L Chloride Level 104 98-107 mmol/L Carbon Dioxide Level 27 21-32 mmol/L Anion Gap 6.0 3-11 mmol/L Blood Urea Nitrogen 17 7-18 mg/dl Creatinine 0.82 0.60-1.20 mg/dl Est Creatinine Clear Calc Drug Dose 90.6 ml/min Estimated GFR () 94.7 Estimated GFR (Non- 81.7 BUN/Creatinine Ratio 21.0 10-20 Random Glucose 80 70-99 mg/dl Calcium Level 8.7 8.5-10.1 mg/dl Total Bilirubin 0.8 0.2-1 mg/dl Aspartate Amino Transf (AST/SGOT) 29 15-37 U/L Alanine Aminotransferase (ALT/SGPT) 28 12-78 U/L Alkaline Phosphatase 116 45-117 U/L Total Protein 7.4 6.4-8.2 gm/dl Albumin 3.7 3.4-5.0 gm/dl Globulin 3.7 2.5-4.0 gm/dl Albumin/Globulin Ratio 1.0 0.9-2 Amylase Level 77 25-115 U/L Lipase 342 73-393 U/L Hepatitis C Antibody Screen NEG NEG Diagnostic Radiology Abdominal x-rays performed in clinic reportedly demonstrated a small bowel obstruction. . Impression Assessment and Plan ABDOMINAL PAIN History of gallstone pancreatitis. History of bowel obstruction. History of multiple abdominal surgeries, including gastric bypass and cholecystectomy. Presents with nausea, vomiting, abdominal X-rays in clinic reportedly consistent with a bowel obstruction. Initial management will consist of bowel rest, IV fluids, analgesics, antiemetics. Check CT of abdomen and pelvis. Consult General Surgery his CT shows any significant findings or if there are any other ongoing concerns. DYSPHAGIA Experiencing dysphagia to solids. Recurrent problem. Status post esophageal dilatation in the past; may warrant repeat procedure. Consult Gastroenterology. RHEUMATOID ARTHRITIS Continue hydroxychloroquine. HISTORY OF DVT / VTE PROPHYLAXIS History of DVT. Underlying factor V Leiden mutation. On chronic warfarin therapy. INR today 1.8. Hold warfarin in case any surgical intervention is necessary. SCDs. Ambulate. Resume warfarin therapy when able. DISPOSITION Admitted to Med-Surg Unit. Expected discharge to home. Family Medicine follow-up with Dr. Guillaume. . Advanced Directives Existing Living Will: No Existing Power of Motion Picture Actor: No Resuscitation Status VTE Prophylaxis Will order VTE Prophylaxis: Yes
[2017-06-27 23:00] VITALS: BP 117/74; PULSE 56; TEMP 36.7; O2SAT 97
[2017-06-28] MEDS: HYDROmorphone INJ 0.5 MG/0.5 ML SYR IV PRN ×2 (04:49→22:55)
[2017-06-28] MEDS: D5W AND LACTATED RINGERS 1,000 ML IV SCH ×3 (04:53→20:54)
[2017-06-28 07:35] LABS: INR 1.7 (0.9-1.1)
[2017-06-28 07:47] VITALS: BP 108/72; PULSE 55; TEMP 36.5; O2SAT 97
[2017-06-28 07:50] LABS: CALCIUM 8.2 mg/dl (8.5-10.1); CREATININE 0.73 mg/dl (0.60-1.20); POTASSIUM 3.8 mmol/L (3.5-5.1)
--- NOTE | 2017-06-28 09:55 | Gastrointestinal Consultation ---
Gastrointestinal Consultation Date of Consultation: Jun 28, 2017 Attending Physician: Patricia Consulting Physician: Matty Reason for Consultation: dysphagia History of Present Illness Patient is a 51 year old female w/ history of RYGB, gallstone pancreatitis and others listed below who presents to [facility] as a direct admission from OP imaging study concerning for early partial SBO - GI was asked to evaluate the pt for dysphagia. Pt was seen and evaluated, chart reviewed. Pt notes she has had upper abdominal pain x 3 days. This start as nausea, she had three episodes of vomiting. This was all bile and food. No hematemesis or coffee ground emesis. Despite vomiting, her pain persisted. Constant, burning. No regurgitation. Moves her bowels daily. No black or bloody stools. No lightheadness, dizziness. No fever, chills, CP, SOB NSAIDs: none AC: yes, coumadin last does was Sunday History of Abdominal surgery: Erin-en-Y gastric bypass surgery performed in 2008 , Cholecystectomy performed in 2015. History of bowel obstruction: yes EGD 01/21/16: Normal upper third of esophagus, middle third of esophagus and lower third of esophagus. Benign-appearing esophageal stenosis. Dilated. LA Grade A esophagitis. Biopsied. Gastric bypass with a small-sized pouch and intact stapleline. Gastrojejunal anastomosis characterized by healthy appearing mucosa with visible staple. Normal examined jejunum. Colonoscopy 01/21/16: The colon (entire examined portion) appeared normal.The entire examined colon is normal. There were areas withsolid residual stool.No specimens collected. Otherwise normal to the terminal ileum, with retroflexedviews of the ascending colon and rectum. CT ABD/Pelvis 06/27/17: No acute intra-abdominal or pelvic findings. Surgically absent gallbladder. Mild intrahepatic biliary ductal dilatation,similar to the prior study No evidence of bowel obstruction. No evidence of free air Postsurgical changes are prior gastric bypass Stable dilatation of the left renal pelvis consistent with a chronic UPJ obstruction No acute inflammatory changes ABD obstructive 06/27/17: There is a dilated loop of small bowel in the left upper quadrant of the abdomen. There is gas in the rectum. An early or partial small bowel obstruction is not excluded.No free intraperitoneal air. Unremarkable chest radiograph. Past Medical/Surgical History Medical Problems: (1) Abscess Status: Acute (2) Cellulitis Status: Acute (3) Contusion of multiple sites Status: Acute (4) Fall Status: Acute (5) Left shoulder pain Status: Acute (6) Subtherapeutic anticoagulation Status: Acute (7) Supratherapeutic INR Status: Acute (8) Supratherapeutic INR Status: Acute (9) Work related injury Status: Acute Past Medical History: anemia, endometriosis, factor V, GERD, DVT, hx pancreatitis, hx SBO, dyslipidemia, RA, migraine Past Surgical History: cholecystectomy, breast biopsy, EGD, colonoscopy, RYGB, carpal tunnel Family History Diabetes mellitus FH: heart disease FATHER FH: rheumatoid arthritis FATHER Social History Smoking Status: Former Smoker Alcohol Use: occasionally Drug Use: none Marital Status: Housing Status: lives with family Occupation Status: employed Allergies Coded Allergies: Pantoprazole (Verified Allergy, Intermediate, RASH, 04/05/17) Penicillin V (Verified Allergy, Intermediate, MILD HIVES, 04/05/17) Tetracyclines (Verified Allergy, Mild, RASH, 04/05/17) Latex (Verified Allergy, Unknown, RASH, 04/05/17) Sulfa Antibiotics (Verified Adverse Reaction, Mild, HEADACHES, 04/05/17) Current Medications Home Meds and Scripts Medications Dose Route/Sig Max Daily Dose Days Date Category Dose Instructions Proair Respiclick (Albuterol Sulfate) 108 Mcg/Act Aer 2 Puffs INH Q4 PRN 06/27/17 Reported Hydroxychloroquine Sulfat (Hydroxychloroquine Sulfate) 200 Mg Tab 400 Mg PO HS 03/22/16 Reported Warfarin Sodium 5 Mg Tab 7.5 Mg PO 3XWK 07/28/15 Reported TAKE 7.5 MG EVERY SUNDAY,SUNDAY AND SUNDAY OR OTHERWISE DIRECTED TO TAKE BY ANTICOAGULATION CLINIC/MD Warfarin Sodium 5 Mg Tab 5 Mg PO 4XWK 07/30/14 Reported TAKE 5 MG EVERY SUNDAY,SUNDAY,SUNDAY AND SUNDAY OR OTHERWISE DIRECTED TO TAKE BY ANTICOAGULATION CLINIC/MD Review of Systems Constitutional: No fever, No chills, No sweats, No weight loss, No weakness, No fatigue ENT: + trouble swallowing, + pain on swallowing, No unusual epistaxis, No nasal symptoms Respiratory: No cough, No sputum, No wheezing, No shortness of breath, No dyspnea on exertion Cardiac: No chest pain, No edema, No palpitations Abdomen: + pain, + nausea, + vomiting, + dysphagia, No diarrhea, No constipation, No GI bleeding, No odynophagia, No acolic stools, No jaundice, No dark urine Musculoskeletal: No joint pain, No swelling Female : No dysuria, No incontinence Skin: No rash, No itch, No color change, No bleeding, No jaundice Physical Exam Date Time Temp Pulse Resp B/P (MAP) Pulse Ox O2 Delivery O2 Flow Rate FiO2 06/28/17 07:47 36.5 55 16 108/72 (84) 97 Room Air 06/27/17 23:30 Room Air 06/27/17 23:00 36.7 56 16 117/74 (88) 97 Room Air 06/27/17 16:00 Room Air 06/27/17 14:57 99 Room Air 06/27/17 14:19 36.8 71 18 139/83 99 Room Air General Appearance: no apparent distress Eyes: PERRL ENT: hearing grossly normal Neck: supple, no adenopathy, no JVD, trachea midline Respiratory/Chest: lungs clear, normal breath sounds, no respiratory distress, no accessory muscle use Cardiovascular: regular rate, rhythm, no edema, no gallop, no JVD, no murmur Abdomen: normal bowel sounds, non tender, soft, no organomegaly, no pulsatile mass Neurologic/Psych: alert, normal mood/affect, oriented x 3 Skin: normal color, no jaundice, warm/dry, no rash Laboratory Results Last 24 Hours Test 06/27/17 14:35 06/28/17 06:47 White Blood Count 4.24 K/uL Red Blood Count 4.62 M/uL Hemoglobin 11.9 g/dL Hematocrit 37.2 % Mean Corpuscular Volume 80.5 fL Mean Corpuscular Hemoglobin 25.8 pg Mean Corpuscular Hemoglobin Concent 32.0 g/dl Platelet Count 214 K/uL Mean Platelet Volume 9.3 fL Neutrophils (%) (Auto) 59.5 % Lymphocytes (%) (Auto) 25.9 % Monocytes (%) (Auto) 10.6 % Eosinophils (%) (Auto) 2.4 % Basophils (%) (Auto) 1.4 % Neutrophils # (Auto) 2.52 K/uL Lymphocytes # (Auto) 1.10 K/uL Monocytes # (Auto) 0.45 K/uL Eosinophils # (Auto) 0.10 K/uL Basophils # (Auto) 0.06 K/uL RDW Standard Deviation 45.3 fL RDW Coefficient of Variation 15.6 % Immature Granulocyte % (Auto) 0.2 % Immature Granulocyte # (Auto) 0.01 K/uL Prothrombin Time 18.2 SECONDS 18.1 SECONDS Prothromb Time International Ratio 1.8 1.7 Activated Partial Thromboplast Time 31.9 SECONDS Partial Thromboplastin Ratio 1.2 Sodium Level 137 mmol/L 140 mmol/L Potassium Level 3.9 mmol/L 3.8 mmol/L Chloride Level 104 mmol/L 106 mmol/L Carbon Dioxide Level 27 mmol/L 28 mmol/L Anion Gap 6.0 mmol/L 7.0 mmol/L Blood Urea Nitrogen 17 mg/dl 10 mg/dl Creatinine 0.82 mg/dl 0.73 mg/dl Est Creatinine Clear Calc Drug Dose 90.6 ml/min 101.8 ml/min Estimated GFR () 94.7 109.0 Estimated GFR (Non- 81.7 94.0 BUN/Creatinine Ratio 21.0 13.2 Random Glucose 80 mg/dl 103 mg/dl Calcium Level 8.7 mg/dl 8.2 mg/dl Total Bilirubin 0.8 mg/dl Aspartate Amino Transf (AST/SGOT) 29 U/L Alanine Aminotransferase (ALT/SGPT) 28 U/L Alkaline Phosphatase 116 U/L Total Protein 7.4 gm/dl Albumin 3.7 gm/dl Globulin 3.7 gm/dl Albumin/Globulin Ratio 1.0 Amylase Level 77 U/L Lipase 342 U/L Hepatitis C Antibody Screen NEG Impression Patient is a 51 year old female w/ RYGB, dysphagia requiring EGD w/ dilation who presented as a direct admit from OP as imaging was concerning for a bowel obstruction. CT on admission without evidence of obstruction. Pt notes dysphagia x 7 years improved w/ dilation last EGD was two years ago. Symptoms returned about a year ago. Has sensation of food sticking, does not pass w/ liquid often times induces emesis for relief Pt coumadin has been on hold since Sunday, INR is 1.7 Plan Hold Coumadin Monitor INR Continue other medications as prescribed NPO EGD Additional recommendations pending results of EGD ATTESTATION: I have performed a history and physical examination of this patient and reviewed the electronic record. Specifically, on physical examination there is no significant abdominal tenderness. I have discussed the case with JOVANI Alvarez. The above note reflects my findings, conclusions, and recommendations. Israel Starr MD
[2017-06-28] MEDS ORDERED: LIDOCAINE HCL 2% 2 ML VIAL (20MG/ML) ONE (12:27)
[2017-06-28] MEDS ORDERED: PROPOFOL IV EMULSION 10 MG/ML 20 ML VIAL IV ONE (12:27)
[2017-06-28] MEDS ORDERED: MIDAZOLAM HCL 1 MG/ML 2ML VIAL ONE (12:47)
--- NOTE | 2017-06-28 13:07 | GI REPORT ---
Procedure Date: 06/28/2017 12:32 PM Procedure: Upper GI endoscopy Indications: Dysphagia Medicines: Monitored Anesthesia Care Complications: No immediate complications. Estimated blood loss: None. Estimated Blood Loss: Estimated blood loss: none. Procedure: Pre-Anesthesia Assessment: - Prior to the procedure, a History and Physical was performed, and patient medications, allergies and sensitivities were reviewed. The patient's tolerance of previous anesthesia was reviewed. - ASA Grade Assessment: III - A patient with severe systemic disease. After obtaining informed consent, the endoscope was passed under direct vision. Throughout the procedure, the patient's blood pressure, pulse, and oxygen saturations were monitored continuously. The scope was introduced through the mouth, and advanced to the jejunum. The upper GI endoscopy was accomplished with ease. The patient tolerated the procedure well. Findings: LA Grade C (one or more mucosal breaks continuous between tops of 2 or more mucosal folds, less than 75% circumference) esophagitis with no bleeding was found in the lower third of the esophagus. A TTS dilator was passed through the scope. Dilation with an 18-19-20 mm balloon dilator was performed to 20 mm. Evidence of a gastric bypass was found. A gastric pouch with a small size was found. The staple line appeared intact. The gastrojejunal anastomosis was characterized by healthy appearing mucosa. This was traversed. The examined jejunum was normal. Impression: - LA Grade C reflux esophagitis. Dilated. - Gastric bypass with a small-sized pouch and intact staple line. Gastrojejunal anastomosis characterized by healthy appearing mucosa. - Normal examined jejunum. - No specimens collected. Recommendation: - Recommend acid suppression medication. - Return patient to [facility] for ongoing care. Israel Starr M.D. Israel Starr MD 06/28/2017 1:07:22 PM This report has been signed electronically. Note Initiated On: 06/28/2017 12:32 PM I attest to the content of the Intraoperative Record and orders documented therein, exceptions below
[2017-06-28 14:02] VITALS: BP 128/82; PULSE 65; TEMP 36.4; O2SAT 98
--- NOTE | 2017-06-28 14:19 | Anesthesiology Progress Note ---
Anesthesia Post Op Note Date & Time Jun 28, 2017 at 14:18 Vital Signs Pain Intensity: 0.0 Vital Signs Past 12 Hours Date Time Temp Pulse Resp B/P (MAP) Pulse Ox O2 Delivery O2 Flow Rate FiO2 06/28/17 14:02 36.4 65 18 128/82 (97) 98 Room Air 06/28/17 13:42 54 18 110/59 (76) 95 Room Air 06/28/17 13:21 65 16 120/55 (76) 95 Room Air 06/28/17 13:06 36 50 16 96/56 (69) 97 Room Air 06/28/17 11:43 36.1 18 151/74 (99) 98 Room Air 06/28/17 07:47 36.5 55 16 108/72 (84) 97 Room Air 06/28/17 07:30 Room Air Notes Mental Status: alert / awake / arousable, participated in evaluation Pt Amnestic to Procedure: Yes Nausea / Vomiting: adequately controlled Pain: adequately controlled Airway Patency, RR, SpO2: stable & adequate BP & HR: stable & adequate Hydration State: stable & adequate Anesthetic Complications: no major complications apparent
[2017-06-28 15:51] VITALS: BP 114/78; PULSE 60; TEMP 36.7; O2SAT 99
[2017-06-28] MEDS ORDERED: FAMOTIDINE 20 MG TAB PO ONE (17:00)
[2017-06-28] MEDS ORDERED: POLYETHYLENE (MIRALAX) 17 GM PACK PO PRN (17:15)
--- NOTE | 2017-06-28 17:25 | Progress Note ---
Internal Med Progress Note Date of Service: Jun 28, 2017. Provider Documentation: SUBJECTIVE: Seen and examined at bedside States RUQ abd pain is better Denies nausea but has constipation Denies chest pain, SOB No other complaints OBJECTIVE: Vital Signs-as noted below Physical Exam: General Appearance:Moderately built and nourished, no apparent distress Head: normocephalic, Atraumatic Eyes: normal inspection, EOMI, PERRLA Neck: supple, Trachea midline Respiratory/Chest: Normal breath sounds, CTA Cardiovascular: S1, S2, No murmur Abdomen/GI:Soft, mild RUQ tender, Bowel sounds present Extremities/Musculoskelatal:normal inspection, no edema Neurologic/Psych:AAOX3, grossly no focal neurological deficits Skin: normal color, warm Lab data as noted below. ASSESSMENT & PLAN: Abdominal Pain: Esophagitis: Likely related to gastritis H/O gallstone pancreatitis and Bowel Obstruction H/O multiple abdominal surgeries: gastric bypass and cholecystectomy. CT ABD: as below, No acute findings S/P EGD today Clear liquid diet Start bowel regimen for constipation Appreciate GI Input Start on Pepcid for acid suppression Advance diet as tolerated Gentle IV fluids Will repeat KUB in AM Chronic Dysphagia H/O esophageal dilatation in past S/P EGD today GI following RA: Continue hydroxychloroquine H/O DVT H/O factor V Leiden mutation. On chronic warfarin therapy. INR today 1.7 today Plan to resume coumadin tomorrow (Discussed with GI) DVT Px: Lovenox SQ for now Disposition: Expect to discharge home when stable Family Medicine follow-up with Dr. Guillaume. PROCEDURES: EGD: Impression: - LA Grade C reflux esophagitis. Dilated. - Gastric bypass with a small-sized pouch and intact staple line. Gastrojejunal anastomosis characterized by healthy appearing mucosa. - Normal examined jejunum. - No specimens collected. Recommendation: - Recommend acid suppression medication. - Return patient to [facility] for ongoing care. CT ABD: 1. No acute intra-abdominal or pelvic findings. 2. Surgically absent gallbladder. Mild intrahepatic biliary ductal dilatation, similar to the prior study 3. No evidence of bowel obstruction. No evidence of free air 4. Postsurgical changes are prior gastric bypass 5. Stable dilatation of the left renal pelvis consistent with a chronic UPJ obstruction 6. No acute inflammatory changes Vital Signs: Date Time Temp Pulse Resp B/P (MAP) Pulse Ox O2 Delivery O2 Flow Rate FiO2 3/1/18 15:51 36.7 60 16 114/78 (90) 99 Room Air 06/28/17 14:02 36.4 65 18 128/82 (97) 98 Room Air 06/28/17 13:42 54 18 110/59 (76) 95 Room Air 06/28/17 13:21 65 16 120/55 (76) 95 Room Air 06/28/17 13:06 36 50 16 96/56 (69) 97 Room Air 06/28/17 11:43 36.1 18 151/74 (99) 98 Room Air 06/28/17 07:47 36.5 55 16 108/72 (84) 97 Room Air 06/28/17 07:30 Room Air 06/27/17 23:30 Room Air 06/27/17 23:00 36.7 56 16 117/74 (88) 97 Room Air Lab Results: Results Past 24 Hours Test 06/28/17 06:47 Range/Units Prothrombin Time 18.1 9.0-12.0 SECONDS Prothromb Time International Ratio 1.7 0.9-1.1 Sodium Level 140 136-145 mmol/L Potassium Level 3.8 3.5-5.1 mmol/L Chloride Level 106 98-107 mmol/L Carbon Dioxide Level 28 21-32 mmol/L Anion Gap 7.0 3-11 mmol/L Blood Urea Nitrogen 10 7-18 mg/dl Creatinine 0.73 0.60-1.20 mg/dl Est Creatinine Clear Calc Drug Dose 101.8 ml/min Estimated GFR () 109.0 Estimated GFR (Non- 94.0 BUN/Creatinine Ratio 13.2 10-20 Random Glucose 103 70-99 mg/dl Calcium Level 8.2 8.5-10.1 mg/dl
[2017-06-28] MEDS ORDERED: POLYETHYLENE (MIRALAX) 17 GM PACK PO ONE (17:30)
[2017-06-28] MEDS ORDERED: NURSING VERBAL MED ORDER ONE (18:15)
[2017-06-28] MEDS ORDERED: ENOXAPARIN 40 MG/0.4 ML SYR SQ SCH (19:00)
[2017-06-28] MEDS: FAMOTIDINE 20 MG TAB PO SCH (20:50)
[2017-06-28] MEDS: HYDROXYCHLOROQUINE SULFATE 200 MG TAB PO SCH (20:51)
[2017-06-28 22:47] VITALS: BP 116/79; PULSE 62; TEMP 36.7; O2SAT 94
[2017-06-28] MEDS: ONDANSETRON INJ 2 MG/ML 2 ML VIAL IV PRN (23:29)
[2017-06-29] MEDS: ACETAMINOPHEN IV 100 ML IV PRN (05:12)
[2017-06-29 06:51] LABS: HEMATOCRIT 33.7 % (37-47); HEMOGLOBIN 10.4 g/dL (12.0-16.0); MEAN CORPUSCULAR HEMOGLOBIN 25.6 pg (25-34); MEAN CORPUSCULAR HGB CONC 30.9 g/dl (32-36); MEAN PLATELET VOLUME 9.3 fL (7.4-10.4); PLATELET COUNT 161 K/uL (130-400); RED CELL DISTRIBUTION WIDTH CV 15.6 % (11.5-14.5); RED CELL DISTRIBUTION WIDTH SD 47.4 fL (36.4-46.3); WHITE BLOOD COUNT 3.66 K/uL (4.8-10.8)
[2017-06-29 06:55] LABS: INR 1.6 (0.9-1.1)
[2017-06-29 07:16] LABS: CALCIUM 8.2 mg/dl (8.5-10.1); CREATININE 0.78 mg/dl (0.60-1.20); POTASSIUM 3.9 mmol/L (3.5-5.1)
[2017-06-29 07:24] VITALS: BP 118/71; PULSE 54; TEMP 36.5; O2SAT 98
[2017-06-29] MEDS: ONDANSETRON INJ 2 MG/ML 2 ML VIAL IV PRN (08:05)
[2017-06-29] MEDS: FAMOTIDINE 20 MG TAB PO SCH (08:05)
--- NOTE | 2017-06-29 08:05 | DIAGNOSTIC IMAGING REPORT ---
KUB CLINICAL HISTORY: Abdominal pain. COMPARISON STUDY: CT of the abdomen and pelvis June 27, 2017. FINDINGS: Oral contrast within the colon is from recent contrast-enhanced CT. There are cholecystectomy clips. Surgical staple lines within left upper quadrant are noted. There is no evidence for a bowel obstruction. IMPRESSION: No evidence for a bowel obstruction. Electronically signed by: Mckay Mansfield M.D. 06/29/2017 8:04 AM Dictated Date/Time: 06/29/2017 8:03 AM
[2017-06-29] MEDS: HYDROmorphone INJ 0.5 MG/0.5 ML SYR IV PRN (08:06)
[2017-06-29] MEDS: D5W AND LACTATED RINGERS 1,000 ML IV SCH (08:06)
[2017-06-29] MEDS ORDERED: FAMOTIDINE IV INJ 20 MG in DEXTROSE 5% 100ML 100 ML IV ONE (08:45)
[2017-06-29] MEDS ORDERED: FAMOTIDINE IV INJ 20 MG in SYRINGE 3 ML IV ONE (09:30)
[2017-06-29 10:15] LABS: ALBUMIN 2.9 gm/dl (3.4-5.0); TOTAL PROTEIN 5.8 gm/dl (6.4-8.2)
--- NOTE | 2017-06-29 12:30 | Gastroenterology Progress Note ---
Progress Note Date of Service: Jun 29, 2017 Subjective Pt evaluation today including: conversation w/ patient, physical exam, chart review, lab review Pt was seen and evaluated, chart reviewed. GI was asked to re-evaluate the pt as she had abdominal pain this AM. S/P EGD w/dilation yesterday. Tolerated well. No abd pain yesterday until she received Dilaudid. Had epigastric abdominal pain after dilaudid. Pain resolved. This AM, pt had WARD. Was getting dilaudid for this, pre-medicated w/ Zofran. Had abrupt onset upper abdominal pain after this. Burning, sharp severe 02/06. Resolved w/ time. Now with mild epigastric pain, worse with palpation. Feels like pain radiates under both breasts into her back. She tells me feels like when she had pancreatitis before. WARD resolved. No fever, chills, CP, SOB. NSAIDs: none AC: yes, coumadin last does was Sunday History of Abdominal surgery: Erin-en-Y gastric bypass surgery performed in 2008 , Cholecystectomy performed in 2015. History of bowel obstruction: yes EGD 06/28/17: LA Grade C reflux esophagitis. Dilated. Gastric bypass with a small- sized pouch and intact staple line. Gastrojejunal anastomosis characterized by healthy appearing mucosa. Normal examined jejunum. No specimens collected. EGD 01/21/16: Normal upper third of esophagus, middle third of esophagus and lower third of esophagus. Benign-appearing esophageal stenosis. Dilated. LA Grade A esophagitis. Biopsied. Gastric bypass with a small-sized pouch and intact stapleline. Gastrojejunal anastomosis characterized by healthy appearing mucosa with visible staple. Normal examined jejunum. Colonoscopy 01/21/16: The colon (entire examined portion) appeared normal.The entire examined colon is normal. There were areas withsolid residual stool.No specimens collected. Otherwise normal to the terminal ileum, with retroflexedviews of the ascending colon and rectum. KUB 06/29/17: normal CT ABD/Pelvis 06/27/17: No acute intra-abdominal or pelvic findings. Surgically absent gallbladder. Mild intrahepatic biliary ductal dilatation,similar to the prior study No evidence of bowel obstruction. No evidence of free air Postsurgical changes are prior gastric bypass Stable dilatation of the left renal pelvis consistent with a chronic UPJ obstruction No acute inflammatory changes ABD obstructive 06/27/17: There is a dilated loop of small bowel in the left upper quadrant of the abdomen. There is gas in the rectum. An early or partial small bowel obstruction is not excluded.No free intraperitoneal air. Unremarkable chest radiograph. Review of Systems Constitutional: No fever, No chills, No weight loss, No weakness, No fatigue Respiratory: No cough, No sputum, No wheezing, No shortness of breath, No dyspnea on exertion Cardiac: No chest pain, No orthopnea, No edema, No palpitations Abdomen: + pain, No nausea, No vomiting, No diarrhea, No constipation, No GI bleeding, No dysphagia, No odynophagia, No acolic stools, No jaundice, No dark urine Skin: No rash, No color change, No bleeding, No jaundice Medications Current Inpatient Medications Medications (Trade) Dose Ordered Sig/Huseyin Route Start Time Stop Time Status Last Admin Dose Admin Ondansetron HCl (Zofran Inj) 4 mg Q6H PRN IV 06/27/17 14:30 07/27/17 14:29 06/29/17 08:05 4 MG Dextrose/Lactated Ringer's 1,000 ml @ 75 mls/hr [id number] IV 06/27/17 16:15 07/27/17 16:14 06/29/17 08:06 75 MLS/HR Acetaminophen 100 ml @ 400 mls/hr Q8H PRN IV 06/27/17 16:00 07/27/17 15:59 06/29/17 05:12 400 MLS/HR Hydromorphone HCl (Dilaudid Inj) 0.5 mg Q6H PRN IV 06/27/17 16:00 07/11/17 15:59 06/29/17 08:06 0.5 MG Hydroxychloroquine Sulfate (Plaquenil Tab) 400 mg HS PO 06/27/17 21:00 07/27/17 20:59 06/28/17 20:51 400 MG Ioversol (Optiray 320) 125 ml UD PRN IV 06/27/17 16:15 07/01/17 16:14 Famotidine (Pepcid Tab) 20 mg BID PO 06/28/17 21:00 07/28/17 20:59 06/29/17 08:05 20 MG Polyethylene (Miralax Powder Packet) 17 gm DAILY PRN PO 06/28/17 17:15 07/28/17 17:14 Enoxaparin Sodium (Lovenox Inj) 40 mg Q24H SQ 06/28/17 19:00 07/28/17 18:59 06/28/17 19:13 40 MG Objective Vital Signs Date Time Temp Pulse Resp B/P (MAP) Pulse Ox O2 Delivery O2 Flow Rate FiO2 06/29/17 08:10 Room Air 06/29/17 07:24 36.5 54 16 118/71 (87) 98 Room Air 06/28/17 22:47 36.7 62 16 116/79 (91) 94 Room Air 06/28/17 22:30 Room Air 06/28/17 16:00 Room Air 06/28/17 15:51 36.7 60 16 114/78 (90) 99 Room Air 06/28/17 14:02 36.4 65 18 128/82 (97) 98 Room Air 06/28/17 13:42 54 18 110/59 (76) 95 Room Air 06/28/17 13:21 65 16 120/55 (76) 95 Room Air 06/28/17 13:06 36 50 16 96/56 (69) 97 Room Air Physical Exam General Appearance: no apparent distress Eyes: PERRL ENT: hearing grossly normal Neck: supple Respiratory/Chest: lungs clear, normal breath sounds, no respiratory distress, no accessory muscle use Cardiovascular: regular rate, rhythm, no edema, no gallop, no JVD Abdomen: normal bowel sounds, soft, no organomegaly, no pulsatile mass, + tenderness (there is epigastric tenderness w/ palpation) Neurologic/Psych: alert, normal mood/affect, oriented x 3 Skin: normal color, no jaundice, warm/dry, no rash Laboratory Results Last 24 Hours Test 06/29/17 06:29 White Blood Count 3.66 K/uL Red Blood Count 4.06 M/uL Hemoglobin 10.4 g/dL Hematocrit 33.7 % Mean Corpuscular Volume 83.0 fL Mean Corpuscular Hemoglobin 25.6 pg Mean Corpuscular Hemoglobin Concent 30.9 g/dl RDW Standard Deviation 47.4 fL RDW Coefficient of Variation 15.6 % Platelet Count 161 K/uL Mean Platelet Volume 9.3 fL Prothrombin Time 16.4 SECONDS Prothromb Time International Ratio 1.6 Sodium Level 140 mmol/L Potassium Level 3.9 mmol/L Chloride Level 106 mmol/L Carbon Dioxide Level 29 mmol/L Anion Gap 5.0 mmol/L Blood Urea Nitrogen 6 mg/dl Creatinine 0.78 mg/dl Est Creatinine Clear Calc Drug Dose 95.3 ml/min Estimated GFR () 100.6 Estimated GFR (Non- 86.8 BUN/Creatinine Ratio 7.5 Random Glucose 96 mg/dl Calcium Level 8.2 mg/dl Total Bilirubin 0.5 mg/dl Direct Bilirubin 0.1 mg/dl Aspartate Amino Transf (AST/SGOT) 29 U/L Alanine Aminotransferase (ALT/SGPT) 24 U/L Alkaline Phosphatase 91 U/L Total Protein 5.8 gm/dl Albumin 2.9 gm/dl Lipase 350 U/L Assessment and Plan Patient is a 51 year old female w/ RYGB, dysphagia requiring EGD w/ dilation who presented as a direct admit from OP as imaging was concerning for a bowel obstruction. CT on admission without evidence of obstruction. Pt notes dysphagia x 7 years improved w/ dilation last EGD was two years ago. Pt is s/p EGD, gastritis, dilated. GI asked to re-evaluate pt as she had abd pain following dilaudid use. Pain is resolving, will add lipase and LFTs to morning labs as pt notes her pain is similar to pancreatitis in the past - Lipase, LFTs - Omeprazole 20 mg daily - Ok to resume AC - No evidence of bowel obstruction - Miralax 17 g BID x 1 week - Miralax 17 g once daily - Colace 100 mg BID - Smaller, more frequent meals - Avoid triggering foods - Avoid NSAIDs - GI to sign off. Please call with any questions or concerns
--- NOTE | 2017-06-29 15:13 | Progress Note ---
Internal Med Progress Note Date of Service: Jun 29, 2017. Provider Documentation: SUBJECTIVE: Seen and examined at bedside Had an episode of abdominal pain this morning which resolved Denies chest pain, SOB, nausea No other complaints OBJECTIVE: Vital Signs-as noted below Physical Exam: General Appearance:Moderately built and nourished, no apparent distress Head: normocephalic, Atraumatic Eyes: normal inspection, EOMI, PERRLA Neck: supple, Trachea midline Respiratory/Chest: Normal breath sounds, CTA Cardiovascular: S1, S2, No murmur Abdomen/GI:Soft, mild RUQ tender, Bowel sounds present Extremities/Musculoskelatal:normal inspection, no edema Neurologic/Psych:AAOX3, grossly no focal neurological deficits Skin: normal color, warm Lab data as noted below. ASSESSMENT & PLAN: Abdominal Pain: Esophagitis/Gastritis: Likely related to gastritis H/O gallstone pancreatitis and Bowel Obstruction H/O multiple abdominal surgeries: gastric bypass and cholecystectomy. CT ABD: as below, No acute findings S/P EGD today Clear liquid diet Start bowel regimen for constipation Appreciate GI Input Start on Pepcid for acid suppression Advance diet as tolerated DC IV fluids KUB:: No evidence for a bowel obstruction. Chronic Dysphagia H/O esophageal dilatation in past S/P EGD today GI following RA: Continue hydroxychloroquine H/O DVT H/O factor V Leiden mutation. On chronic warfarin therapy. INR today 1.6 today Resume coumadin today DVT Px: Lovenox SQ for now Disposition: Plan to discharge home today Follow up with your PCP Dr. Guillaume on July 04, 2017 at 12:45pm Follow up with your Circus [employer] Seek immediate medical attention if your symptoms reoccur or worsen Can resume coumadin today Avoid NSAIDs and triggering food as advised PROCEDURES: EGD: Impression: - LA Grade C reflux esophagitis. Dilated. - Gastric bypass with a small-sized pouch and intact staple line. Gastrojejunal anastomosis characterized by healthy appearing mucosa. - Normal examined jejunum. - No specimens collected. Recommendation: - Recommend acid suppression medication. - Return patient to [facility] for ongoing care. CT ABD: 1. No acute intra-abdominal or pelvic findings. 2. Surgically absent gallbladder. Mild intrahepatic biliary ductal dilatation, similar to the prior study 3. No evidence of bowel obstruction. No evidence of free air 4. Postsurgical changes are prior gastric bypass 5. Stable dilatation of the left renal pelvis consistent with a chronic UPJ obstruction 6. No acute inflammatory changes Vital Signs: Date Time Temp Pulse Resp B/P (MAP) Pulse Ox O2 Delivery O2 Flow Rate FiO2 06/29/17 08:10 Room Air 06/29/17 07:24 36.5 54 16 118/71 (87) 98 Room Air 06/28/17 22:47 36.7 62 16 116/79 (91) 94 Room Air 06/28/17 22:30 Room Air 06/28/17 16:00 Room Air 06/28/17 15:51 36.7 60 16 114/78 (90) 99 Room Air Lab Results: Results Past 24 Hours Test 06/29/17 06:29 Range/Units White Blood Count 3.66 4.8-10.8 K/uL Red Blood Count 4.06 4.2-5.4 M/uL Hemoglobin 10.4 12.0-16.0 g/dL Hematocrit 33.7 37-47 % Mean Corpuscular Volume 83.0 80-100 fL Mean Corpuscular Hemoglobin 25.6 25-34 pg Mean Corpuscular Hemoglobin Concent 30.9 32-36 g/dl RDW Standard Deviation 47.4 36.4-46.3 fL RDW Coefficient of Variation 15.6 11.5-14.5 % Platelet Count 161 130-400 K/uL Mean Platelet Volume 9.3 7.4-10.4 fL Prothrombin Time 16.4 9.0-12.0 SECONDS Prothromb Time International Ratio 1.6 0.9-1.1 Sodium Level 140 136-145 mmol/L Potassium Level 3.9 3.5-5.1 mmol/L Chloride Level 106 98-107 mmol/L Carbon Dioxide Level 29 21-32 mmol/L Anion Gap 5.0 3-11 mmol/L Blood Urea Nitrogen 6 7-18 mg/dl Creatinine 0.78 0.60-1.20 mg/dl Est Creatinine Clear Calc Drug Dose 95.3 ml/min Estimated GFR () 100.6 Estimated GFR (Non- 86.8 BUN/Creatinine Ratio 7.5 10-20 Random Glucose 96 70-99 mg/dl Calcium Level 8.2 8.5-10.1 mg/dl Total Bilirubin 0.5 0.2-1 mg/dl Direct Bilirubin 0.1 0-0.2 mg/dl Aspartate Amino Transf (AST/SGOT) 29 15-37 U/L Alanine Aminotransferase (ALT/SGPT) 24 12-78 U/L Alkaline Phosphatase 91 45-117 U/L Total Protein 5.8 6.4-8.2 gm/dl Albumin 2.9 3.4-5.0 gm/dl Lipase 350 73-393 U/L
[2017-06-29] MEDS ORDERED: DOCU-94 PO (15:16)
[2017-06-29] MEDS ORDERED: OMEP40CA41 PO (15:16)
[2017-06-29] MEDS ORDERED: MRLP17X PO (15:16)
--- NOTE | 2017-06-29 15:20 | Discharge Summary ---
Discharge Summary Date of Service Jun 29, 2017. Discharge Summary Admission Date: Jun 27, 2017 at 14:04 Discharge Date: Jun 29, 2017 Discharge Disposition: Home Principal Diagnosis: Esophagitis/Gastritis Ruled out Bowel Obstruction Procedures: Procedures Performed: Esophagogastroduodenoscopy, with balloon dilation Dr Starr EGD: Impression: - LA Grade C reflux esophagitis. Dilated. - Gastric bypass with a small-sized pouch and intact staple line. Gastrojejunal anastomosis characterized by healthy appearing mucosa. - Normal examined jejunum. - No specimens collected. Recommendation: - Recommend acid suppression medication. - Return patient to [facility] for ongoing care. CT ABD: 1. No acute intra-abdominal or pelvic findings. 2. Surgically absent gallbladder. Mild intrahepatic biliary ductal dilatation, similar to the prior study 3. No evidence of bowel obstruction. No evidence of free air 4. Postsurgical changes are prior gastric bypass 5. Stable dilatation of the left renal pelvis consistent with a chronic UPJ obstruction 6. No acute inflammatory changes Consultations: GI Pending Studies/Follow-Up: Follow up with your PCP Dr. 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 Seek immediate medical attention if your symptoms reoccur or worsen Can resume coumadin today Avoid NSAIDs and triggering food as advised Take smaller, more frequent meals Medication Reconciliation New Medications: Docusate Sodium (Colace) 100 Mg Cap 1 CAP PO BID for 7 Days, #14 CAP Omeprazole (Prilosec) 40 Mg Cap 1 CAP PO DAILY for 30 Days, #30 CAP 0 Refills Polyethylene (Miralax) 17 Gm Pow 17 GM PO DAILY PRN for Constipation for 7 Days, #7 EA Continued Medications: Albuterol Sulfate (Proair Respiclick) 108 Mcg/Act Aer 2 PUFFS INH Q4 PRN for SOB/Wheezing Hydroxychloroquine Sulfate (Hydroxychloroquine Sulfat) 200 Mg Tab 400 MG PO HS Warfarin Sodium (Warfarin Sodium) 5 Mg Tab 5 MG PO 4XWK TAKE 5 MG EVERY SUNDAY,SUNDAY,SUNDAY AND SUNDAY OR OTHERWISE DIRECTED TO TAKE BY ANTICOAGULATION CLINIC/ Warfarin Sodium (Warfarin Sodium) 5 Mg Tab 7.5 MG PO 3XWK TAKE 7.5 MG EVERY SUNDAY,SUNDAY AND SUNDAY OR OTHERWISE DIRECTED TO TAKE BY ANTICOAGULATION CLINIC/ Admission Information HPI (per Admitting provider): 51-year-old followed by Dr. Guillaume. History of gallstone pancreatitis, bowel obstruction, and other problems noted below. Erin-en-Y gastric bypass surgery performed in 2009. Cholecystectomy performed in 2016. She developed nausea during the night while working. Experience worsening abdominal bloating and around 6:00 this morning she had worsening pain, nausea, vomiting. No hematemesis. Last bowel movement was 2 days prior to admission; no melena or hematochezia. Had some chills, but no documented fever. Evaluated in clinic this morning. Abdominal films demonstrated a small bowel obstruction. Patient was referred to the hospital for further evaluation and management. Patient also indicates that she has been experiencing dysphagia to solids. She has had esophageal dilatation performed in the past. . Physical Exam (per Admitting): General Appearance: WD/WN, no apparent distress Head: normocephalic, atraumatic Eyes: normal inspection, PERRL, EOMI, sclerae normal, + pertinent finding ( Conjunctivae clear) ENT: normal ENT inspection, hearing grossly normal Neck: supple, no adenopathy, thyroid normal, trachea midline Respiratory/Chest: lungs clear (To auscultation and percussion), no respiratory distress Cardiovascular: regular rate, rhythm, no edema, no gallop, no JVD, no murmur Abdomen/GI: + pertinent finding (Quiet bowel sounds, slightly distended, soft, mild mid abdominal tenderness without rebound or guarding, no palpable masses or hepatosplenomegaly) Extremities/Musculoskelatal: normal inspection, no calf tenderness, + pertinent finding (No cyanosis) 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 CT ABD: as below, No acute findings S/P EGD today Clear liquid diet Start bowel regimen for constipation Appreciate GI Input Start on Pepcid for acid suppression Advance diet as tolerated DC IV fluids KUB:: No evidence for a bowel obstruction. Chronic Dysphagia H/O esophageal dilatation in past S/P EGD today GI following RA: Continue hydroxychloroquine H/O DVT H/O factor V Leiden mutation. On chronic warfarin therapy. INR today 1.6 today Resume coumadin today DVT Px: Lovenox SQ for now Disposition: Plan to discharge home today Follow up with your PCP Dr. 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 Dilated. - Gastric bypass with a small-sized pouch and intact staple line. Gastrojejunal anastomosis characterized by healthy appearing mucosa. - Normal examined jejunum. - No specimens collected. Recommendation: - Recommend acid suppression medication. - Return patient to [facility] for ongoing care. CT ABD: 1. No acute intra-abdominal or pelvic findings. 2. Surgically absent gallbladder. Mild intrahepatic biliary ductal dilatation, similar to the prior study 3. No evidence of bowel obstruction. No evidence of free air 4. Postsurgical changes are prior gastric bypass 5. Stable dilatation of the left renal pelvis consistent with a chronic UPJ obstruction 6. No acute inflammatory changes Total time spent on discharge = 33 minutes This includes examination of the patient, discharge planning, medication reconciliation, and communication with other providers. Discharge Instructions Discharge Instructions Date of Service Jun 29, 2017. Admission Reason for Admission: Bowel Obstruction Discharge Discharge Diagnosis / Problem: Esophagitis/Gastritis Ruled out Bowel Obstruction Discharge Goals Goal(s): Decrease discomfort, Improve function Activity Recommendations Activity Limitations: resume your previous activity Exercise/Sports Limitations: as tolerated . Instructions / Follow-Up Instructions / Follow-Up Follow up with your PCP Dr. 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 Seek immediate medical attention if your symptoms reoccur or worsen Can resume coumadin today Avoid NSAIDs and triggering food as advised Take smaller, more frequent meals Current Hospital Diet Patient's current hospital diet: Clear Liquid Diet Discharge Diet Recommended Diet: AHA Diet (Heart Healthy), Low Fat Diet Procedures Procedures Performed: Esophagogastroduodenoscopy, with balloon dilation Dr Starr Pending Studies Studies pending at discharge: no Work Instructions Additional Instructions: Can resume to work on Sunday07/02/17 if no recurrence of symptoms Medical Emergencies . Who to Call and When: Medical Emergencies: If at any time you feel your situation is an emergency, please call 911 immediately. . Non-Emergent Contact Non-Emergency issues call your: Primary Care Provider, Lumber [employer]er Call Non-Emergent contact if: you have a fever, your pain is not controlled, your pain is worsening, your pain is unusual for you, your pain is concerning you, you have any medication questions Seek immediate medical attention if your symptoms reoccur or worsen . . "Provider Documentation" section prepared by Alexander Brian. . <Electronically signed by Alexander Brian MD> Signed: 06/29/17 1520 Signed: The status of this report is Signed * If report status is Draft, the document has not been finalized by the responsible provider.
[2017-06-29 15:25] VITALS: BP 118/71; PULSE 54; TEMP 36.5; O2SAT 98
[2017-06-29] MEDS ORDERED: ENOXAPARIN 40 MG/0.4 ML SYR SQ SCH (19:00)
== END 2017-06-29 17:15 | disposition home or self-care (01) | DRG 392 ==
LOC: C.MSW 14:04 → EEVIPCON 14:04
PROVIDERS: ADMIT Hospitalist; ATTEND Internal Medicine
PROC: 0D758ZZ Dilation of Esophagus, Via Natural or Artificial Opening Endoscopic (ICD-10-PCS; principal; 2017-06-28 11:32)
DX: K20.9 Esophagitis, unspecified (principal); K29.70 Gastritis, unspecified, without bleeding; D68.51 Activated protein C resistance; Z98.84 Bariatric surgery status; E78.5 Hyperlipidemia, unspecified; G43.109 Migraine with aura, not intractable, without status migrainosus; M06.9 Rheumatoid arthritis, unspecified; Z87.891 Personal history of nicotine dependence; Z88.0 Allergy status to penicillin; Z88.2 Allergy status to sulfonamides; Z91.040 Latex allergy status; R13.10 Dysphagia, unspecified; Z86.718 Personal history of other venous thrombosis and embolism

== ENCOUNTER 2024-10-24 12:30 | Inpatient (IN) ==
[2024-10-24 13:04] LABS: Appearance Urine Clear (Clear); Bilirubin Urine Negative (Negative); Blood Urine Negative (Negative); Color Urine Yellow; Glucose Urine UA Negative (Negative); Ketones Urine Negative (Negative); Leukocyte Esterase Urine Negative (Negative); Nitrite Urine Negative (Negative); Protein Urine Negative (Negative); Specific Gravity Urine 1.012 (1.000-1.030); Urobilinogen Urine Positive (Negative); pH Urine 6.5 (4.5-7.5)
[2024-10-24 13:07] LABS: Basophils # (auto) 0.06 K/uL (0.00-0.20); Basophils % (auto) 1.2 %; Hematocrit (blood only) 37.4 % (37.0-47.0); Hemoglobin 12.7 g/dl (12.0-16.0); Immature Granulocytes # (auto) 0.01 K/uL (0.01-0.20); Immature Granulocytes % (auto) 0.2 %; Lymphocytes # (auto) 1.04 K/uL (1.20-3.40); Lymphocytes % (auto) 20.5 %; Mean Corpuscular Hemoglobin 33.2 pg (25.0-34.0); Mean Corpuscular Volume 97.9 fL (80.0-100.0); Mean Platelet Volume 9.7 fL (9.4-12.4); Monocytes # (auto) 0.43 K/uL (0.11-0.59); Monocytes % (auto) 8.5 %; Neutrophils # (auto) 3.43 K/uL (1.40-6.50); Neutrophils % (auto) 67.6 %; Platelet Count 194 K/uL (130-400); RDW Coefficient of Variation 13.7 % (11.5-14.5); RDW Standard Deviation 49.4 fL (36.4-46.3); Red Blood Count 3.82 M/uL (4.20-5.40); White Blood Count 5.07 K/ul (4.8-10.8)
[2024-10-24 13:25] LABS: Albumin Globulin Ratio 1.4 (0.9-2); BUN Creatinine Ratio 17.6 (10-20); Calcium 8.6 mg/dl (8.6-10.3); Creatinine Clr Calc Pharmacy 95.5 ml/min; Globulin 2.7 gm/dl (2.5-4.0); Total Protein 6.5 gm/dl (6.0-8.3)
[2024-10-24] MEDS: OPTIRAY 320 100ml IV ONE (13:43)
--- NOTE | 2024-10-24 14:23 | CT Scan Report ---
ABDOMEN AND PELVIS CT WITH IV CONTRAST CT DOSE: 1354.26 mGy.cm HISTORY: Acute left lower quadrant abdominal pain with nausea LLQ pain, TECHNIQUE: Multiaxial CT images of the abdomen and pelvis were performed following the IV administrat ion of 94 cc of Optiray, A dose lowering technique was utilized adhering to the principles of ALARA. COMPARISON STUDY: June 27, 2017 FINDINGS: Clear lung bases. No pneumatosis or pneumoperitoneum. Unremarkable spleen, pancreas and adr enal glands. Cholecystectomy with likely postsurgical biliary ductal dilation redemonstrated. Unremar kable liver. Normal-appearing right kidney. Possible chronic left-sided UPJ obstruction. Mild atrophy with cortica l thinning of the left kidney. 1.9 cm left renal cyst, previously 1.2 cm. Unremarkable urinary bladde r. Hysterectomy. Atherosclerosis of the aorta. No lymphadenopathy. Small hiatal hernia. Erin-en-Y gastric bypass. No bowel obstruction or bowel wall thickening. Mild co lonic fecal retention. Acute left-sided rectus sheath hematoma with active extravasation. This measur es up to approximately 4.2 x 8.1 x 10.0 cm. No acute fracture. IMPRESSION: 1. Acute 10 cm left rectus sheath hematoma with active extravasation. 2. No bowel obstruction or bowel wall thickening. 3. Chronic findings as above. ACT 112: Negative or not required by law. The above report was generated using voice recognition software. It may contain grammatical, syntax o r spelling errors. Electronically signed by: Mychal Mosquera M.D. 10/24/2024 2:21 PM
[2024-10-24] MEDS: ONDANSETRON INJ 2 MG/ML 2 ML VIAL IV STA ×2 (14:30→18:07)
[2024-10-24] MEDS: SODIUM CHLORIDE 0.9% 1,000 ML IV ONE (14:43)
[2024-10-24] MEDS: ACETAMINOPHEN 1,000 MG/100 ML VIAL IV STA (14:43)
[2024-10-24] MEDS: MoRPHine SULFATE 4 MG/ML 1 ML CARP\\VIAL IV STA ×2 (14:44→23:07)
[2024-10-24] MEDS: HYDROmorphone INJ 1 MG/ML SYRINGE IV STA (15:41)
[2024-10-24] MEDS: FAMOTIDINE 20MG IV PUSH 20 MG/5 ML SYR IV STA (15:41)
[2024-10-24 15:48] LABS: INR 2.8 (0.9-1.1); Prothrombin Time 27.5 Seconds (9.0-12.0)
--- NOTE | 2024-10-24 16:10 | Emergency Department Note ---
Impression & Plan Hematoma of rectus sheath, Abdominal pain ED Provider Note CHIEF COMPLAINT: Left lower quadrant pain HISTORY OF PRESENTING ILLNESS: Patient is a 59-year-old female presents to the emergency department today for complaints of left lower quadrant pain. She does have a history of gastric bypass, migraines, RA, GERD, endometriosis, pancreatitis, hyperlipidemia, small bowel obstructions, anemia, factor V Leiden mutation on Coumadin. She denies any nausea or vomiting. She denies any blood in her stool. She reports her last bowel movement being normal without any straining this morning around 8 AM. He denies chest pain, sob, breathing difficulties, abdominal pain, headache, fevers/chills, blood in stool or urine, any recent illness, or any recent travel. REVIEW OF SYSTEMS: See HPI for pertinent positives and pertinent negatives. ALLERGIES: See below MEDICATIONS: See below PAST MEDICAL HISTORY: See below PHYSICAL EXAM: VITAL SIGNS - Vital signs and nursing notes were reviewed. GENERAL -59-year-old female appearing her stated age who is in no acute distress. Communicates well with provider and answers questions appropriately. HEAD - NC/AT. MOUTH/OROPHARYNX - Without perioral cyanosis. Buccal mucosa pink and moist and without leukoplakia. Tongue midline with equal elevation of palate bilaterally. No tonsillar hypertrophy, erythema, or exudates noted. Good dentition noted. NECK - Neck with FROM. Supple to palpation. No nuchal rigidity. LUNGS - Chest wall symmetric without accessory muscle use, intercostals retractions, or central cyanosis. Normal vesicular breath sounds CTA B/L. No wheezes, rales, or rhonchi appreciated. CARDIAC - RRR with S1/S2. No murmur, rubs, or gallops appreciated. ABDOMEN -difficult to assess patient's abdomen due to increased pain. Abdominal contour is without pulsations or visible masses. BS normoactive all four quadrants. Severe tenderness to palpation appreciated left lower quadrant. Positive guarding. Negative rebound Tenderness. No palpable masses, hepatosplenomegaly, or ascites noted. PSYCH - A&Ox3 and cooperates fully with examiner. Pt is very pleasant and interacts well with examiner. DIFFERENTIAL DIAGNOSIS: Differential diagnosis includes appendicitis, diverticulitis, bowel obstruction, inflammatory bowel disease, renal colic, PUD, biliary pathology, pancreatitis, mesenteric ischemia, aortic pathology, infection, genitourinary, UTI, perforated viscus, among others. ED COURSE AND MEDICAL DECISION MAKING: HISTORY FROM INDEPENDENT HISTORIAN: History was provided by the patient and her son who is at bedside. MEDICATIONS GIVEN: An IV lock was placed. The patient was given 1 g of Tylenol IV and had no improvement with any pain. She was then given 4 mg of morphine without any improvement in pain. She was then given 1 mg of Dilaudid with significant improvement in her pain. She was also given Zofran 4 mg. She was later given vitamin K 5 mg IV for reversal of her Coumadin. MONITOR: Continuous continuous absorption process operator: Order was placed for continuous continuous absorption process operator. Patient was placed on the continuous absorption process operator and continuous pulse ox. Patient was noted to be in normal sinus rhythm at an initial rate of 60 bpm per my interpretation. EKG: EKG was interpreted by myself as sinus bradycardia at 59 bpm. INTERPRETATION OF LABS: I interpreted the labs with full lab results as below in the lab section of this note. Laboratory results pertinent to the emergent complaint are discussed in the MDM section below. The patient was advised to follow up with their PCP and/or specialist(s) for further outpatient monitoring and management of any abnormal results. INTERPRETATION OF IMAGING: Imaging studies were interpreted by myself and read by radiology as per the imaging section of this note. The patient was advised to follow up with their PCP and/or specialist(s) for further outpatient management of any non-emergent abnormal findings. CHRONIC MEDICAL/SOCIAL CONDITIONS AFFECTING CARE: No social concerns were identified as barriers to patients care. ESCALATION OF CARE CONSIDERED: I considered admission on this patient due to the rectus sheath hematoma with active extravasation. CONSULTATIONS: I had a meaningful discussion about this patient with Dr. Briggs who agrees with my assessment and the treatment plan. I then consulted with general surgery who referring the patient to the hospitalist for inpatient management. I also consulted with hematology due to the patient's Coumadin use with factor V history. SUMMARY: I examined the patient for complaints of left lower quadrant pain. A physical exam and history were performed. Nursing notes, EMR, and medication list were personally reviewed. Patient was seen in the critical Path area and evaluated as best as possible. She was in significant pain. She was given a liter normal saline and a gram of IV Tylenol. Her CBC showed no critical findings. PT was 27.5, INR 2.8 which is therapeutic with her Coumadin use. CMP was normal and urinalysis was negative for leukocytes and nitrates. CT of the abdomen and pelvis showed an acute 10 cm left rectus sheath hematoma with active extravasation. There was no bowel obstruction or bowel wall thickening. At this time general surgery was paged and was able to come see the patient. I also spoke with hematology who does recommend administering vitamin K 5 mg to reverse the Coumadin. I then spoke with the hospitalist Dr. Mercado who accepted the patient for admission. Throughout the stay the patient was given Zofran and morphine without improvement in pain. She was then given Dilaudid 1 mg and did have significant improvement in pain. DIAGNOSIS: 10 cm rectus sheath hematoma with active extravasation TREATMENT PLAN/DISCHARGE INSTRUCTIONS: Admitted to hospitalist services by Dr. Mercado Past Med/Surg History Problem List (Updated 10/24/24 @ 22:32 by JOVANI Martinez) Abdominal pain (Acute) Hematoma of rectus sheath (Acute) Rectus sheath hematoma S/P cholecystectomy (Chronic) "2015" H/O gastric bypass (Chronic) "2008" H/O colonoscopy (Chronic) H/O esophagogastroduodenoscopy (Chronic) History of carpal tunnel surgery (Chronic) H/O deep venous thrombosis (Chronic) "on coumadin" Migraine with aura (Chronic) Rheumatoid arthritis (Chronic) GERD (gastroesophageal reflux disease) (Chronic) Endometriosis (Chronic) History of pancreatitis (Chronic) "2015" HLD (hyperlipidemia) (Chronic) History of small bowel obstruction (Chronic) "2015" Anemia, iron deficiency (Chronic) Factor V Leiden mutation (Chronic) Abdominal pain Medical History History of factor V Leiden mutation History of pancreatitis History of small bowel obstruction History of anemia History of endometriosis History of gastroesophageal reflux (GERD) History of rheumatoid arthritis History of DVT (deep vein thrombosis) History of migraine Surgical History History of ureter stent Family History Other Deep vein thrombosis Social History Smoking Status: Never smoker Tobacco Type: Cigarettes Second Hand Exposure: No; Do You Dip or Chew Tobacco: No; Tobacco Cessation Education Requested by Patient: No Hx Alcohol Use: Yes Hx Substance Use: No Preferred Language: Wolof Communication Ability: Effective Hearing Ability: Normal Shop Router Required: Voice Beliefs That Will Affect Care: None marital status: Single Current Living Situation: Family current occupational status: employed 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 Other Information That Helps Us Care for You: No Feels Safe at Home: Yes Safety Concerns: Feels Safe At This Time Assistive Devices: None Allergies Allergies Allergy/AdvReac Type Severity Reaction Status Date / Time pantoprazole Allergy Intermediate RASH Verified 10/24/24 15:49 penicillin V Allergy Intermediate MILD HIVES Verified 10/24/24 15:49 Tetracyclines Allergy Mild RASH Verified 10/24/24 15:49 latex Allergy Unknown RASH Verified 10/24/24 15:49 Sulfa (Sulfonamide AdvReac Mild HEADACHES Verified 10/24/24 15:49 Antibiotics) Home Meds Home Medications Medication Instructions Recorded Confirmed warfarin 5 mg tablet See Rx Instructions .Route .COMPLEX 02/05/21 10/24/24 folic acid 1 mg tablet 1 mg PO DAILY 10/24/24 10/24/24 methotrexate sodium 2.5 mg tablet 15 mg PO WK 10/24/24 10/24/24 pantoprazole 40 mg tablet,delayed 40 mg PO DAILYBB 10/24/24 10/24/24 release Results & Data (ED) Vital Signs Vital Signs - 24 hr 10/24/24 12:35 10/24/24 14:52 10/24/24 14:53 Temperature 36.7 C Temperature Source Temporal Artery Scan Pulse Rate 75 Pulse Rate [Right Finger] 80 69 Pulse Rate from SpO2 Sensor Pulse Rhythm [Right Finger] Regular Regular Pulse Strength [Right Finger] Normal Respiratory Rate 20 12 18 Respiratory Effort / Characteristics Non-Labored Spontaneous Non-Labored Non-Labored Spontaneous Respiratory Depth Normal Normal Normal Respiratory Pattern Regular Regular Regular Blood Pressure 174/101 H Blood Pressure [Right Arm] 203/117 H 188/102 H Blood Pressure Mean 125 Blood Pressure Mean [Right Arm] 145 130 Blood Pressure Position [Right Arm] Sitting Lying Pulse Oximetry 99 99 100 Oxygen Delivery Method Room Air Room Air Room Air Oxygen Flow Rate Sepsis Recent Fever Within 48 Hours No Sepsis New/Unexplained Change in Mental Status No Sepsis Action Taken by Nursing No Action Required 10/24/24 15:21 10/24/24 15:30 10/24/24 15:32 Temperature Temperature Source Pulse Rate 69 57 L Pulse Rate [Right Finger] Pulse Rate from SpO2 Sensor 57 L Pulse Rhythm [Right Finger] Pulse Strength [Right Finger] Respiratory Rate 18 Respiratory Effort / Characteristics Respiratory Depth Respiratory Pattern Blood Pressure 123/57 L 123/57 L Blood Pressure [Right Arm] Blood Pressure Mean 79 82 Blood Pressure Mean [Right Arm] Blood Pressure Position [Right Arm] Pulse Oximetry 100 Oxygen Delivery Method Room Air Oxygen Flow Rate Sepsis Recent Fever Within 48 Hours Sepsis New/Unexplained Change in Mental Status Sepsis Action Taken by Nursing 10/24/24 15:32 10/24/24 16:00 Temperature Temperature Source Pulse Rate Pulse Rate [Right Finger] 66 Pulse Rate from SpO2 Sensor Pulse Rhythm [Right Finger] Pulse Strength [Right Finger] Respiratory Rate 14 Respiratory Effort / Characteristics Non-Labored Respiratory Depth Normal Respiratory Pattern Regular Blood Pressure 123/57 L Blood Pressure [Right Arm] 146/88 H Blood Pressure Mean 82 Blood Pressure Mean [Right Arm] 107 Blood Pressure Position [Right Arm] Pulse Oximetry 97 Oxygen Delivery Method Nasal Cannula Oxygen Flow Rate 2 Sepsis Recent Fever Within 48 Hours Sepsis New/Unexplained Change in Mental Status Sepsis Action Taken by Nursing Laboratory Data 10/24/24 18:51 10/24/24 12:45 Lab Results 10/24/24 Range/Units 12:45 WBC 5.07 (4.8-10.8) K/ul RBC 3.82 L (4.20-5.40) M/uL Hgb 12.7 (12.0-16.0) g/dl Hct 37.4 (37.0-47.0) % MCV 97.9 (80.0-100.0) fL MCH 33.2 (25.0-34.0) pg MCHC 34.0 (32.0-36.0) g/dL RDW Std Deviation 49.4 H (36.4-46.3) fL RDW Coeff of William 13.7 (11.5-14.5) % Plt Count 194 (130-400) K/uL MPV 9.7 (9.4-12.4) fL Immature Gran % (Auto) 0.2 % Neut % (Auto) 67.6 % Lymph % (Auto) 20.5 % [place] % (Auto) 8.5 % Eos % (Auto) 2.0 % Baso % (Auto) 1.2 % Neut # (Auto) 3.43 (1.40-6.50) K/uL Lymph # (Auto) 1.04 L (1.20-3.40) K/uL [place] # (Auto) 0.43 (0.11-0.59) K/uL Eos # (Auto) 0.10 (0.00-0.50) K/uL Baso # (Auto) 0.06 (0.00-0.20) K/uL Immature Gran # (Auto) 0.01 (0.01-0.20) K/uL PT 27.5 H (9.0-12.0) Seconds INR 2.8 H (0.9-1.1) Sodium 137 (136-145) mmol/L Potassium 4.0 (3.5-5.1) mmol/L Chloride 103 (98-107) mmol/L Carbon Dioxide 29 (21-32) mmol/L Anion Gap 5 (3-11) BUN 13 (6-23) mg/dl Creatinine 0.74 (0.6-1.2) mg/dl Est Cr Clr Drug Dosing 95.5 ml/min eGFR 91.99 BUN/Creatinine Ratio 17.6 (10-20) Glucose 93 (70-99(Fasting)) mg/dl Calcium 8.6 (8.6-10.3) mg/dl Total Bilirubin 1.0 (0.2-1.0) mg/dl AST 35 (13-39) U/L ALT 21 (7-52) U/L Alkaline Phosphatase 90 (34-104) U/L Total Protein 6.5 (6.0-8.3) gm/dl Albumin 3.8 (3.4-5.0) gm/dl Globulin 2.7 (2.5-4.0) gm/dl Albumin/Globulin Ratio 1.4 (0.9-2) Lipase 53 (11-82) U/L Urine Color Yellow Urine Appearance Clear (Clear) Urine pH 6.5 (4.5-7.5) Ur Specific [place] 1.012 (1.000-1.030) Urine Protein Negative (Negative) Urine Glucose (UA) Negative (Negative) Urine Ketones Negative (Negative) Urine Blood Negative (Negative) Urine Nitrite Negative (Negative) Urine Bilirubin Negative (Negative) Urine Urobilinogen Positive H (Negative) Ur Leukocyte Esterase Negative (Negative) Urine Comment Administered Medications Sodium Chloride (Nss) 1,000 mls @ 125 mls/hr IV .Q8H LUCY Stop: 10/27/24 18:44 Last Admin: 10/24/24 19:33 Dose: 125 mls/hr Documented By: NRS Discontinued Medications Hydromorphone HCl (Hydromorphone Inj 1 Mg/Ml Syringe) 1 mg IV NOW STA Stop: 10/24/24 15:33 Last Admin: 10/24/24 15:41 Dose: 1 mg Documented By: MELL Sodium Chloride (Nss) 1,000 mls @ 999 mls/hr IV .Q1H1M ONE Stop: 10/24/24 14:20 Last Infusion: 10/24/24 15:44 Dose: Infused Documented By: Admin: 10/24/24 14:43 Dose: 999 mls/hr Documented By: HEATHER Acetaminophen (Ofirmev) 1,000 mg in 100 mls @ 400 mls/hr IV NOW STA Stop: 10/24/24 13:34 Last Infusion: 10/24/24 15:43 Dose: Infused Documented By: Admin: 10/24/24 14:43 Dose: 400 mls/hr Documented By: HEATHER Famotidine (Pepcid 20mg Iv Push) 20 mg in 5 mls @ 2.5 mls/min IV NOW STA Stop: 10/24/24 15:37 Last Admin: 10/24/24 15:41 Dose: 2.5 mls/min Documented By: MELL Phytonadione 5 mg/ Dextrose 50.5 mls @ 101 mls/hr IV ONE ONE Stop: 10/24/24 16:36 Last Infusion: 10/24/24 17:28 Dose: Infused Documented By: Admin: 10/24/24 16:53 Dose: 101 mls/hr Documented By: MELL Ioversol (Optiray 320 100ml) 94 ml IV ONCE ONE Stop: 10/24/24 13:44 Last Admin: 10/24/24 13:43 Dose: 94 ml Documented By: WAYNE Morphine Sulfate (Morphine Sulfate 4 Mg/Ml 1 Ml Carp\\Vial) 4 mg IV NOW STA Stop: 10/24/24 14:27 Last Admin: 10/24/24 14:44 Dose: 4 mg Documented By: SKB Morphine Sulfate (Morphine Sulfate 2 Mg/Ml Carp) 2 mg IV NOW STA Stop: 10/24/24 18:48 Last Admin: 10/24/24 19:33 Dose: 2 mg Documented By: NRS Ondansetron HCl (Ondansetron Inj 2 Mg/Ml 2 Ml Vial) 4 mg IV NOW STA Stop: 10/24/24 14:27 Last Admin: 10/24/24 14:30 Dose: 4 mg Documented By: SKB Ondansetron HCl (Ondansetron Inj 2 Mg/Ml 2 Ml Vial) Confirm Administered Dose 4 mg .ROUTE .STK-MED ONE Stop: 10/24/24 18:02 Last Admin: 10/24/24 18:07 Dose: Not Given Documented By: MELL Ondansetron HCl (Ondansetron Inj 2 Mg/Ml 2 Ml Vial) 4 mg IV NOW STA Stop: 10/24/24 18:07 Last Admin: 10/24/24 18:07 Dose: 4 mg Documented By: MELL Imaging Data Radiologist's Impression: Abdomen/Pelvis CT 10/24/24 13:[address] WITH IV CONTRAST CT DOSE: 1354.26 mGy.cm HISTORY: Acute left lower quadrant abdominal pain with nausea LLQ pain, TECHNIQUE: Multiaxial CT images of the abdomen and pelvis were performed following the IV administration of 94 cc of Optiray, A dose lowering technique was utilized adhering to the principles of ALARA. COMPARISON STUDY: June 27, 2017 FINDINGS: Clear lung bases. No pneumatosis or pneumoperitoneum. Unremarkable spleen, pancreas and adrenal glands. Cholecystectomy with likely postsurgical biliary ductal dilation redemonstrated. Unremarkable liver. Normal-appearing right kidney. Possible chronic left-sided UPJ obstruction. Mild atrophy with cortical thinning of the left kidney. 1.9 cm left renal cyst, previously 1.2 cm. Unremarkable urinary bladder. Hysterectomy. Atherosclerosis of the aorta. No lymphadenopathy. Small hiatal hernia. Erin-en-Y gastric bypass. No bowel obstruction or bowel wall thickening. Mild colonic fecal retention. Acute left-sided rectus sheath hematoma with active extravasation. This measures up to approximately 4.2 x 8.1 x 10.0 cm. No acute fracture. IMPRESSION: 1. Acute 10 cm left rectus sheath hematoma with active extravasation. 2. No bowel obstruction or bowel wall thickening. 3. Chronic findings as above. ACT 112: Negative or not required by law. The above report was generated using voice recognition software. It may contain grammatical, syntax or spelling errors. Electronically signed by: Mychal Mosquera M.D. 10/24/2024 2:21 PM Discharge Plan Visit Data Chief Complaint: Abdominal Pain Stated Complaint: LT LOWER ABD PAIN ED Provider: Kiran Briggs ED Midlevel Provider: Lucinda Rivera Discharge Problem: Hematoma of rectus sheath, Abdominal pain Patient Disposition: Admitted As Inpatient Condition: Fair Discharge Instructions Interventions: ED Discharge Assessment Last Done: 10/24/24 18:13 Discharge Problem: Hematoma of rectus sheath Qualifiers: Encounter type: initial encounter Qualified Code(s): S30.1XXA - Contusion of abdominal wall, initial encounter Abdominal pain Qualifiers: Abdominal location: left lower quadrant Qualified Code(s): R10.32 - Left lower quadrant pain
--- NOTE | 2024-10-24 16:41 | Surgery Consultation ---
Date of Consultation October 24, 2024 Assessment & Plan (1) Rectus sheath hematoma: Rectus sheath hematoma with small blush. INR 2.5. Currently stable, H&H normal No surgical indication at this time Recommend admission to medicine Reverse anticoagulation, abdominal binder for compression Trend H&H Hold off on any anticoagulation until we are sure the bleeding is stopped. At that point we can slowly restart anticoagulation with some heparin and then restart Coumadin the next few days. If continues to bleed may need transfer for IR embolization Surgery only indicated that if the patient continues with bleeding and becomes unstable Surgery will continue to follow, call with questions or concerns (2) Factor V Leiden mutation: (3) H/O deep venous thrombosis: (4) H/O gastric bypass: (5) S/P cholecystectomy: (6) GERD (gastroesophageal reflux disease): History of Present Illness Reason for Consultation: Rectus sheath hematoma History of Present Illness 59-year-old female presented with left lower quadrant abdominal pain. She states the pain started about a week ago when she was constipated and straining go to the bathroom. There was mildly sore but did not bother her much. 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 She does not recall a specific inciting event. She is on Coumadin for history of factor V Leiden and blood clots. She has a history of Erin-en-Y gastric bypass. Otherwise she is healthy. Allergies Allergy/AdvReac Type Severity Reaction Status Date / Time pantoprazole Allergy Intermediate RASH Verified 10/24/24 15:49 penicillin V Allergy Intermediate MILD HIVES Verified 10/24/24 15:49 Tetracyclines Allergy Mild RASH Verified 10/24/24 15:49 latex Allergy Unknown RASH Verified 10/24/24 15:49 Sulfa (Sulfonamide AdvReac Mild HEADACHES Verified 10/24/24 15:49 Antibiotics) Home Medications Medication Instructions Recorded Confirmed Type warfarin 5 mg tablet See Rx Instructions .Route .COMPLEX 02/05/21 10/24/24 History methotrexate sodium 2.5 mg tablet 15 mg PO WK 10/24/24 10/24/24 History pantoprazole 40 mg tablet,delayed 40 mg PO DAILYBB 10/24/24 10/24/24 History release Patient History Medical History History of factor V Leiden mutation History of pancreatitis History of small bowel obstruction History of anemia History of endometriosis History of gastroesophageal reflux (GERD) History of rheumatoid arthritis History of DVT (deep vein thrombosis) History of migraine Surgical History History of ureter stent Family History Other Deep vein thrombosis Social History Smoking Status: Former smoker Tobacco Type: Cigarettes Hx Substance Use: No Preferred Language: Egyptian Hearing Ability: Normal marital status: Single Current Living Situation: Alone current occupational status: employed 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 Feels Safe at Home: Yes Physical Exam Constitutional: WD/WN, vitals as above + obese Respiratory: normal respiratory effort, lungs clear to auscultation Cardiovascular: RRR, no murmur, no edema Gastrointestinal (Abdomen): Percussion/Palpation: + abdomen tender (Tender palpation left lower quadrant, firmness in rectus sheath) and abdomen soft; no guarding and abdomen not rigid Results & Data Vital Signs (Past 12 Hours) Vital Signs Temp Pulse Pulse Resp BP BP Pulse Ox 10/24/24 16:00 66 14 146/88 H 97 10/24/24 15:32 123/57 L 10/24/24 15:32 123/57 L 10/24/24 15:30 57 L 18 123/57 L 100 10/24/24 15:21 69 10/24/24 14:53 69 18 188/102 H 100 10/24/24 14:52 80 12 203/117 H 99 10/24/24 12:35 36.7 C 75 20 174/101 H 99 O2 Del Method O2 Flow Rate 10/24/24 16:00 Nasal Cannula 2 10/24/24 15:32 10/24/24 15:32 10/24/24 15:30 Room Air 10/24/24 15:21 10/24/24 14:53 Room Air 10/24/24 14:52 Room Air 10/24/24 12:35 Room Air Laboratory Results Laboratory Results - last 24 hr 10/24/24 12:45 WBC 5.07 RBC 3.82 L Hgb 12.7 Hct 37.4 MCV 97.9 MCH 33.2 MCHC 34.0 RDW Std Deviation 49.4 H RDW Coeff of William 13.7 Plt Count 194 MPV 9.7 Immature Gran % (Auto) 0.2 Neut % (Auto) 67.6 Lymph % (Auto) 20.5 [place] % (Auto) 8.5 Eos % (Auto) 2.0 Baso % (Auto) 1.2 Neut # (Auto) 3.43 Lymph # (Auto) 1.04 L [place] # (Auto) 0.43 Eos # (Auto) 0.10 Baso # (Auto) 0.06 Immature Gran # (Auto) 0.01 PT 27.5 H INR 2.8 H Sodium 137 Potassium 4.0 Chloride 103 Carbon Dioxide 29 Anion Gap 5 BUN 13 Creatinine 0.74 Est Cr Clr Drug Dosing 95.5 eGFR 91.99 BUN/Creatinine Ratio 17.6 Glucose 93 Calcium 8.6 Total Bilirubin 1.0 AST 35 ALT 21 Alkaline Phosphatase 90 Total Protein 6.5 Albumin 3.8 Globulin 2.7 Albumin/Globulin Ratio 1.4 Lipase 53 Urine Color Yellow Urine Appearance Clear Urine pH 6.5 Ur Specific [place] 1.012 Urine Protein Negative Urine Glucose (UA) Negative Urine Ketones Negative Urine Blood Negative Urine Nitrite Negative Urine Bilirubin Negative Urine Urobilinogen Positive H Ur Leukocyte Esterase Negative Urine Comment Diagnostic Findings CT scan personally viewed and interpreted and agree with the assessment of a rectus sheath hematoma on the left with some mild active extravasation. ABDOMEN AND PELVIS CT WITH IV CONTRAST CT DOSE: 1354.26 mGy.cm HISTORY: Acute left lower quadrant abdominal pain with nausea LLQ pain, TECHNIQUE: Multiaxial CT images of the abdomen and pelvis were performed following the IV administration of 94 cc of Optiray, A dose lowering technique was utilized adhering to the principles of ALARA. COMPARISON STUDY: June 27, 2017 FINDINGS: Clear lung bases. No pneumatosis or pneumoperitoneum. Unremarkable spleen, pancreas and adrenal glands. Cholecystectomy with likely postsurgical biliary ductal dilation redemonstrated. Unremarkable liver. Normal-appearing right kidney. Possible chronic left-sided UPJ obstruction. Mild atrophy with cortical thinning of the left kidney. 1.9 cm left renal cyst, previously 1.2 cm. Unremarkable urinary bladder. Hysterectomy. Atherosclerosis of the aorta. No lymphadenopathy. Small hiatal hernia. Erin-en-Y gastric bypass. No bowel obstruction or bowel wall thickening. Mild colonic fecal retention. Acute left-sided rectus sheath hematoma with active extravasation. This measures up to approximately 4.2 x 8.1 x 10.0 cm. No acute fracture. IMPRESSION: 1. Acute 10 cm left rectus sheath hematoma with active extravasation. 2. No bowel obstruction or bowel wall thickening. 3. Chronic findings as above PG Care Time/CCT Total # of Minutes Spent Total Time Spent with Patient: Total time spent is greater than 50% in coordination of care (as documented) at patient's floor/unit and/or counseling patient: Coding Level of Care Code 77582 OFFICE CONSULT LVL M Diagnoses Hematoma of rectus sheath, initial encounter S30.1XXA Encounter type: initial encounter Factor V Leiden mutation D68.51 H/O deep venous thrombosis Z86.718 H/O gastric bypass Z98.84 S/P cholecystectomy Z90.49 GERD (gastroesophageal reflux disease) K21.9 (1) Rectus sheath hematoma Encounter type: initial encounter Qualified Code(s): S30.1XXA - Contusion of abdominal wall, initial encounter
[2024-10-24] MEDS: PHYTONADIONE 5 MG in DEXTROSE 5% 50 ML IV ONE ×2 (16:53→23:07)
--- NOTE | 2024-10-24 17:05 | History & Physical Report ---
Date of Service October 24, 2024 Assessment & Plan (1) Rectus sheath hematoma: (2) Factor V Leiden mutation: (3) H/O deep venous thrombosis: Plan Patient is a 59-year-old female with past medical history significant for factor V Leiden mutation and history of DVT on chronic Coumadin therapy, HTN, HLD, rheumatoid arthritis involving multiple sites, history of renal calculi, depression, JORGE and other problems listed below who presented to the ED for evaluation of abdominal pain with associated nausea and lightheadedness/dizziness. #LLQ abd pain, nausea #Acute rectus sheath hematoma #Factor V Leiden mutation and history of DVT on chronic Coumadin therapy CTAP: acute left-sided rectus sheath hematoma with active extravasation - this measures up to approximately 4.2 x 8.1 x 10.0 cm Hgb 12.7 on admission, stable INR 2.8 --> s/p 5mg IV vit K in ED Gen surg consulted -No surgical indication at this time -Abdominal binder for compression -Trend H/H Q6H -No chemical AC -If continues to bleed, will need transfer to tertiary care center for IR embolization Repeat INR @ 22:00 and in AM Hold warfarin Follow H/H trend Pt w/ L calf pain and bruising on medial aspect x few days --> check venous Doppler US LLE given hx, utilize ice/warm compress PRN PRN pain control w/ IV morphine Fall precautions, OOB w/ assistance 2/2 lightheadedness/dizziness --> if any worsening, low threshold to check head CT Maintenance IVF while NPO -- can have sips/chips/meds #GERD Continue PPI as tolerated #Rheumatoid arthritis On methotrexate - hold for now (given every Sun, missed this wk's dose) Folic acid supplementation while on methotrexate - can cont as tolerated F/w [facility], Dr. Quinonez #Incidental CTAP findings Including: -Possible chronic L-sided UPJ obstruction -Mild atrophy w/ cortical thinning of the L kidney -1.9cm renal cyst, previously 1.2cm -Atherosclerosis of the aorta -Small hiatal hernia Pt made aware of above findings Outpt f/u advised #Atherosclerosis of aorta (as above) Pt previously made aware of this as an outpt Lipid panel, 07/2024: total cholesterol 211 (H), triglycerides 95, HDL 71, LDL 121 Consider addition of statin 2/2 aortic atherosclerosis --> pt refused in past US aorta, 08/2024: no focal AAA TTE, 08/2024: LVEF = 60-64%, normal LV wall motion, grade I DD Pt mentions she is scheduled to see [facility] in Dec DVT Prophylaxis: SCDs/TEDs only, avoid chemical AC ISO above PCP: Amos Davis MD Disposition: Admit to PCU Patient seen in collaboration with Dr. Mercado. Please see addendum. I spent a total of 65 minutes coordinating, documenting, and providing care for this patient excluding time spent in the performance of separately billed services or time spent by another provider/QHP. This included personally reviewing all current laboratories and imaging studies, medical reconciliation, outpatient chart review and discussion with specialists. This chart was completed in part utilizing Speech Voice Recognition Software. Grammatical errors, random word insertions, pronoun errors, and incomplete s entences are an occasional consequence of this system due to software limitations, ambient noise, and hardware issues. Any formal questions or concerns about the content, text, or information contained within the body of this dictation should be directly addressed to the provider for clarification. History of Present Illness Chief Complaint: Abdominal pain Primary Care Provider: Amos Davis MD Patient is a 59-year-old female with past medical history significant for factor V Leiden mutation and history of DVT on chronic Coumadin therapy, HTN, HLD, rheumatoid arthritis involving multiple sites, history of renal calculi, depression, JORGE and other problems listed below who presented to the ED for evaluation of abdominal pain with associated nausea and lightheadedness/dizziness. History obtained from the patient, discussion with ED provider and associated chart review. Patient with lower abdominal pain, primarily in the left lower quadrant, since last Sunday. Initially resolved over the weekend but then returned a few days after and in greater severity. Describes the pain as stabbing in nature. Also now with lightheadedness, dizziness and nausea but no vomiting since yesterday. Noted to be repeatedly retching today. No cough, SOB or chest pain. Does not recall inciting event such as trauma. On chronic Coumadin therapy (7.5mg M/F; 5mg all other days) for history of factor V Leiden mutation and DVT - last DVT noted in 2009. No recently missed doses of Coumadin. Does endorse some pain in her left calf as well as bruising which is tender to palpation. She first noticed this a few days ago. Allergies Allergy/AdvReac Type Severity Reaction Status Date / Time pantoprazole Allergy Intermediate RASH Verified 10/24/24 15:49 penicillin V Allergy Intermediate MILD HIVES Verified 10/24/24 15:49 Tetracyclines Allergy Mild RASH Verified 10/24/24 15:49 latex Allergy Unknown RASH Verified 10/24/24 15:49 Sulfa (Sulfonamide AdvReac Mild HEADACHES Verified 10/24/24 15:49 Antibiotics) Home Medications Medication Instructions Recorded Confirmed Type folic acid 1 mg tablet 1 mg PO DAILY 10/24/24 10/24/24 History methotrexate sodium 2.5 mg tablet 15 mg PO WK 10/24/24 10/24/24 History pantoprazole 40 mg tablet,delayed 40 mg PO DAILYBB 10/24/24 10/24/24 History release apixaban 5 mg tablet (Eliquis) 5 mg PO BID #60 tabs 10/26/24 Rx Past Med/Surg History Problem List (Updated 10/24/24 @ 22:32 by JOVANI Martinez) Abdominal pain (Acute) Hematoma of rectus sheath (Acute) Rectus sheath hematoma S/P cholecystectomy (Chronic) "2015" H/O gastric bypass (Chronic) "2008" H/O colonoscopy (Chronic) H/O esophagogastroduodenoscopy (Chronic) History of carpal tunnel surgery (Chronic) H/O deep venous thrombosis (Chronic) "on coumadin" Migraine with aura (Chronic) Rheumatoid arthritis (Chronic) GERD (gastroesophageal reflux disease) (Chronic) Endometriosis (Chronic) History of pancreatitis (Chronic) "2015" HLD (hyperlipidemia) (Chronic) History of small bowel obstruction (Chronic) "2015" Anemia, iron deficiency (Chronic) Factor V Leiden mutation (Chronic) Abdominal pain Medical History History of factor V Leiden mutation History of pancreatitis History of small bowel obstruction History of anemia History of endometriosis History of gastroesophageal reflux (GERD) History of rheumatoid arthritis History of DVT (deep vein thrombosis) History of migraine Surgical History History of ureter stent Family History Other Deep vein thrombosis Social History Smoking Status: Never smoker Tobacco Type: Cigarettes Second Hand Exposure: No; Do You Dip or Chew Tobacco: No; Hx Alcohol Use: Yes Hx Substance Use: No Preferred Language: Spanish Communication Ability: Effective Hearing Ability: Normal Digital Content Marketing Manager Required: Voice Beliefs That Will Affect Care: None marital status: Single Current Living Situation: Family current occupational status: employed 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 Physical Exam Physical Exam: Please refer to Dr. Mercado's addendum for physical examination findings. Results & Data Results & Data Vital Signs (Past 12 Hours) Vital Signs Temp Pulse Pulse Resp BP BP Pulse Ox 10/24/24 16:00 66 14 146/88 H 97 10/24/24 15:32 123/57 L 10/24/24 15:32 123/57 L 10/24/24 15:30 57 L 18 123/57 L 100 10/24/24 15:21 69 10/24/24 14:53 69 18 188/102 H 100 10/24/24 14:52 80 12 203/117 H 99 10/24/24 12:35 36.7 C 75 20 174/101 H 99 O2 Del Method O2 Flow Rate 10/24/24 16:00 Nasal Cannula 2 10/24/24 15:32 10/24/24 15:32 10/24/24 15:30 Room Air 10/24/24 15:21 10/24/24 14:53 Room Air 10/24/24 14:52 Room Air 10/24/24 12:35 Room Air Laboratory Results Short CBC 10/24/24 Range/Units 12:45 WBC 5.07 (4.8-10.8) K/ul Hgb 12.7 (12.0-16.0) g/dl Hct 37.4 (37.0-47.0) % Plt Count 194 (130-400) K/uL BMP 10/24/24 12:45 Sodium 137 Potassium 4.0 Chloride 103 Carbon Dioxide 29 BUN 13 Creatinine 0.74 Glucose 93 Calcium 8.6 Liver Function 10/24/24 Range/Units 12:45 Total Bilirubin 1.0 (0.2-1.0) mg/dl AST 35 (13-39) U/L ALT 21 (7-52) U/L Alkaline Phosphatase 90 (34-104) U/L Albumin 3.8 (3.4-5.0) gm/dl Urine 10/24/24 Range/Units 12:45 Urine Color Yellow Urine Appearance Clear (Clear) Urine pH 6.5 (4.5-7.5) Ur Specific [place] 1.012 (1.000-1.030) Urine Protein Negative (Negative) Urine Glucose (UA) Negative (Negative) Diagnostic Findings Abdomen/Pelvis CT 10/24/24 13:[address] WITH IV CONTRAST CT DOSE: 1354.26 mGy.cm HISTORY: Acute left lower quadrant abdominal pain with nausea LLQ pain, TECHNIQUE: Multiaxial CT images of the abdomen and pelvis were performed following the IV administration of 94 cc of Optiray, A dose lowering technique was utilized adhering to the principles of ALARA. COMPARISON STUDY: June 27, 2017 FINDINGS: Clear lung bases. No pneumatosis or pneumoperitoneum. Unremarkable spleen, pancreas and adrenal glands. Cholecystectomy with likely postsurgical biliary ductal dilation redemonstrated. Unremarkable liver. Normal-appearing right kidney. Possible chronic left-sided UPJ obstruction. Mild atrophy with cortical thinning of the left kidney. 1.9 cm left renal cyst, previously 1.2 cm. Unremarkable urinary bladder. Hysterectomy. Atherosclerosis of the aorta. No lymphadenopathy. Small hiatal hernia. Erin-en-Y gastric bypass. No bowel obstruction or bowel wall thickening. Mild colonic fecal retention. Acute left-sided rectus sheath hematoma with active extravasation. This measures up to approximately 4.2 x 8.1 x 10.0 cm. No acute fracture. IMPRESSION: 1. Acute 10 cm left rectus sheath hematoma with active extravasation. 2. No bowel obstruction or bowel wall thickening. 3. Chronic findings as above. ACT 112: Negative or not required by law. The above report was generated using voice recognition software. It may contain grammatical, syntax or spelling errors. Electronically signed by: Mychal Mosquera M.D. 10/24/2024 2:21 PM Medications Administered Discontinued Medications Hydromorphone HCl (Hydromorphone Inj 1 Mg/Ml Syringe) 1 mg IV NOW STA Stop: 10/24/24 15:33 Last Admin: 10/24/24 15:41 Dose: 1 mg Documented By: MELL Sodium Chloride (Nss) 1,000 mls @ 999 mls/hr IV .Q1H1M ONE Stop: 10/24/24 14:20 Last Infusion: 10/24/24 15:44 Dose: Infused Documented By: Admin: 10/24/24 14:43 Dose: 999 mls/hr Documented By: HEATHER Acetaminophen (Ofirmev) 1,000 mg in 100 mls @ 400 mls/hr IV NOW STA Stop: 10/24/24 13:34 Last Infusion: 10/24/24 15:43 Dose: Infused Documented By: Admin: 10/24/24 14:43 Dose: 400 mls/hr Documented By: HEATHER Famotidine (Pepcid 20mg Iv Push) 20 mg in 5 mls @ 2.5 mls/min IV NOW STA Stop: 10/24/24 15:37 Last Admin: 10/24/24 15:41 Dose: 2.5 mls/min Documented By: MELL Phytonadione 5 mg/ Dextrose 50.5 mls @ 101 mls/hr IV ONE ONE Stop: 10/24/24 16:36 Last Admin: 10/24/24 16:53 Dose: 101 mls/hr Documented By: MELL Ioversol (Optiray 320 100ml) 94 ml IV ONCE ONE Stop: 10/24/24 13:44 Last Admin: 10/24/24 13:43 Dose: 94 ml Documented By: WAYNE Morphine Sulfate (Morphine Sulfate 4 Mg/Ml 1 Ml Carp\\Vial) 4 mg IV NOW STA Stop: 10/24/24 14:27 Last Admin: 10/24/24 14:44 Dose: 4 mg Documented By: HEATHER Ondansetron HCl (Ondansetron Inj 2 Mg/Ml 2 Ml Vial) 4 mg IV NOW STA Stop: 10/24/24 14:27 Last Admin: 10/24/24 14:30 Dose: 4 mg Documented By: HEATHER Code Status & VTE Plan Code Status FULL CODE Supervising Physician Co-Signing Physician Notes 59-year-old female with PMH of factor V Leyden mutation, DVT on chronic Coumadin therapy, HTN, HLD, rheumatoid arthritis on methotrexate, depression, JORGE presents to the ED with complaint of left lower abdominal pain. Patient reports having left lower abdominal pain last Sunday which was not so bad and finally went away but this came back up again today morning and gradually worsened through the day and hence he presented to the ED. Patient denies any trauma or violent cough or any dry heaves or retching before today. Today patient is nauseous and is having occasional dry heaves. Patient denies fever/sore throat/cough/chest pain/palpitation. Admitting labs and imaging reviewed. CBC and renal function fairly WNL. INR 2.8. UA negative for UTI. CTAP positive for left rectus sheath hematoma. Status post IV vitamin K 5 Mg in the ED, repeat PT/INR at 2200 hrs., monitor H&H every 6 hours, continue with abdominal binder, general surgery on board. Hold warfarin. On exam: Patient on room air, Left lower abdominal tenderness and induration noted, no bruising noted. Abdominal binder in place. No BLE edema. Rest of the examination as above. Total time spent: 30 minutes. I have seen and examined the patient and have discussed the case with the provider above. I agree with the assessment and plan as stated. (1) Rectus sheath hematoma Encounter type: initial encounter Qualified Code(s): S30.1XXA - Contusion of abdominal wall, initial encounter
[2024-10-24] MEDS: ONDANSETRON INJ 2 MG/ML 2 ML VIAL ONE (18:07)
[2024-10-24] MEDS ORDERED: PROMETHAZINE 6.25 MG/50.25 ML BAG IV PRN (18:40)
[2024-10-24] MEDS ORDERED: POLYETHYLENE (MIRALAX) 17 GM PACK PO PRN (18:40)
[2024-10-24] MEDS ORDERED: ONDANSETRON INJ 2 MG/ML 2 ML VIAL IV PRN (18:40)
[2024-10-24] MEDS ORDERED: MoRPHine SULFATE 2 MG/ML CARP IV PRN (18:40)
[2024-10-24] MEDS ORDERED: MAGNESIUM HYDROXIDE SUSP 30 ML UDC PO PRN (18:40)
[2024-10-24 19:10] LABS: Hematocrit (blood only) 36.9 % (37.0-47.0); Hemoglobin 12.3 g/dl (12.0-16.0)
[2024-10-24] MEDS: SODIUM CHLORIDE 0.9% 1,000 ML IV SCH (19:33)
[2024-10-24] MEDS: MoRPHine SULFATE 2 MG/ML CARP IV STA (19:33)
[2024-10-24] MEDS ORDERED: oxyCODONE HCL IR 5 MG TAB (IMMEDIATE RELEASE) PO PRN (22:33)
[2024-10-24 23:42] LABS: INR 1.4 (0.9-1.1); Prothrombin Time 15.1 Seconds (9.0-12.0)
[2024-10-25 01:02] LABS: Hematocrit (blood only) 36.2 % (37.0-47.0)
[2024-10-25] MEDS: SODIUM CHLORIDE 0.9% 1,000 ML IV ONE (04:12)
[2024-10-25] MEDS ORDERED: PANTOprazole 40 MG TAB PO SCH (06:30)
--- NOTE | 2024-10-25 06:54 | Ultrasound Report ---
EXAM: US venous doppler LE LT CLINICAL HISTORY: R/o DVT, L calf pain, h/o factor 5 Leiden TECHNIQUE: Ultrasound examination of the left lower extremity veins was performed in real time and duplex. One or more of the following were performed- spectral analysis, resistive index, waveform analysis, and pulsed Doppler. COMPARISON: None. FINDINGS: Normal phasic, non-pulsatile and spontaneous flow is noted in the left common femoral, superficial femoral, popliteal and anterior tibial and peroneal veins. Visualized veins of both lower extremities demonstrate normal compressibility. No sonographic evidence of acute deep vein thrombosis (DVT) is detected in the visualized veins of both lower extremities. Compression: All evaluated veins compress fully with applied transducer pressure. Additional Findings: No evidence of intraluminal thrombus. IMPRESSION: No sonographic evidence of acute DVT detected in the left common femoral, superficial femoral, popliteal and anterior tibial and peroneal veins, at the time of examination. Disclaimer: DVT could be missed early in the disease when clot burden is minimal. For patients with moderate and high pretest probability of DVT and negative ultrasound, the [employer] [employer] clinical guidelines recommend testing with a D-dimer assay or repeat ultrasound in 5-7 days. If symptoms worsen, the Society of radiologists in ultrasound recommends repeating ultrasound even earlier. Electronically signed by Rodrigo Modi 10-25-2024 06:53 AM
[2024-10-25 07:26] LABS: Basophils # (auto) 0.03 K/uL (0.00-0.20); Basophils % (auto) 0.6 %; Eosinophils # (auto) 0.07 K/uL (0.00-0.50); Eosinophils % (auto) 1.3 %; Hematocrit (blood only) 35.7 % (37.0-47.0); Hemoglobin 11.7 g/dl (12.0-16.0); Immature Granulocytes # (auto) 0.02 K/uL (0.01-0.20); Immature Granulocytes % (auto) 0.4 %; Lymphocytes # (auto) 0.96 K/uL (1.20-3.40); Mean Corpuscular Hemoglobin 32.4 pg (25.0-34.0); Mean Corpuscular Hgb Conc 32.8 g/dL (32.0-36.0); Mean Corpuscular Volume 98.9 fL (80.0-100.0); Mean Platelet Volume 9.7 fL (9.4-12.4); Monocytes # (auto) 0.56 K/uL (0.11-0.59); Monocytes % (auto) 10.5 %; Neutrophils # (auto) 3.68 K/uL (1.40-6.50); Neutrophils % (auto) 69.2 %; Platelet Count 175 K/uL (130-400); RDW Coefficient of Variation 13.7 % (11.5-14.5); RDW Standard Deviation 49.9 fL (36.4-46.3); Red Blood Count 3.61 M/uL (4.20-5.40); White Blood Count 5.32 K/ul (4.8-10.8)
[2024-10-25 07:44] LABS: BUN Creatinine Ratio 19.6 (10-20); Calcium 8.1 mg/dl (8.6-10.3); Creatinine Clr Calc Pharmacy 126.2 ml/min; Magnesium 1.9 mg/dl (1.7-2.4); Phosphorus 3.6 mg/dl (2.5-4.9)
[2024-10-25] MEDS: FOLIC ACID 1 MG TAB PO SCH (07:58)
[2024-10-25 08:04] LABS: INR 1.1 (0.9-1.1); Prothrombin Time 12.2 Seconds (9.0-12.0)
[2024-10-25] MEDS: ACETAMINOPHEN 325 MG TAB PO PRN (08:10)
--- NOTE | 2024-10-25 08:44 | Surgery Progress Note ---
Date of Service October 25, 2024 Assessment & Plan (1) Rectus sheath hematoma: Plan: Patient doing well at this point, continues to remain hemodynamically stable. No surgical indication at this time Can continue abdominal binder for compression H&H has remained stable overnight, can trend daily at this point Would continue to hold anticoagulation for now If patient has any signs she is continuing to bleed, she may need transfer for IR embolization. Surgery only indicated that if the patient continues with bleeding and becomes unstable Surgery will continue to follow, call with questions or concerns (2) Factor V Leiden mutation: Admission and Anticipated Discharge Date Admission Date: October 24, 2024 Supervising Physician Co-Signing Physician Notes Patient seen examined, labs reviewed, agree with above. Admitted with rectus sheath hematoma in setting of Coumadin use. Feeling better, little bit of disc omfort with movement and palpation. Tender palpation of left lower quadrant, no ecchymosis. H&H stable. Can decrease frequency of H&H to once daily. If stable can start heparin. She has a porcine valve and no history of DVT, does not appear she has a strong indication for Coumadin at this time. Would review her history and potentially discontinue anticoagulation if this is seems appropriate. If not can likely restart tomorrow. Subjective Patient doing well this morning No complaints of abdominal pain, nausea or vomiting overnight Patient has remained hemodynamically stable overnight, hgb 11.7, not tachycardic or hypotensive Physical Exam Constitutional: WD/WN, vitals as above Respiratory: normal respiratory effort, lungs clear to auscultation Cardiovascular: RRR, no murmur, no edema Gastrointestinal (Abdomen): Abdomen soft, nondistended, +mild TTP in the LLQ without any rebound, guarding or signs of peritonitis. Skin: no rashes, warm and dry Results & Data Vital Signs (Past 12 Hours) Vital Signs Temp Pulse Resp BP Pulse Ox O2 Del Method 10/25/24 07:50 36.6 C 60 20 126/80 98 Room Air 10/25/24 04:04 36.4 C L 53 L 18 144/81 H 100 Room Air 10/24/24 22:27 36.4 C L 52 L 18 144/83 H 98 Room Air PG Care Time/CCT Total # of Minutes Spent Total Time Spent with Patient: Total time spent is greater than 50% in coordination of care (as documented) at patient's floor/unit and/or counseling patient: Coding [place] [address] SUB INP/OBS CARE 05/24MIN Patient Type Established Medical Decision Making Straight Forward Diagnoses Hematoma of rectus sheath, initial encounter S30.1XXA Encounter type: initial encounter Factor V Leiden mutation D68.51 (1) Rectus sheath hematoma Encounter type: initial encounter Qualified Code(s): S30.1XXA - Contusion of abdominal wall, initial encounter
--- NOTE | 2024-10-25 10:21 | Electrocardiogram Report ---
Test Reason : Blood Pressure : */* mmHG Vent. Rate : 54 BPM Atrial Rate : 54 BPM P-R Int : 152 ms QRS Dur : 78 ms QT Int : 458 ms P-R-T Axes : 55 28 30 degrees QTcB Int : 434 ms Sinus bradycardia Otherwise normal ECG When compared with ECG of 13-Feb-2016 19:54, No significant change was found Confirmed by Ernesto Ac ([id number]) on 10/25/2024 10:21:32 AM Referred By: REFERRED SELF Confirmed By: Ernesto Ac
[2024-10-25 13:10] LABS: Hematocrit (blood only) 36.4 % (37.0-47.0)
--- NOTE | 2024-10-25 14:21 | Hospitalist Progress Note ---
Date of Service October 25, 2024 Assessment & Plan (1) Rectus sheath hematoma: (2) Factor V Leiden mutation: (3) H/O deep venous thrombosis: Plan Patient is a 59-year-old female with past medical history significant for factor V Leiden mutation and history of DVT on chronic Coumadin therapy, HTN, HLD, rheumatoid arthritis involving multiple sites, history of renal calculi, depression, JORGE and other problems listed below who presented to the ED for evaluation of abdominal pain with associated nausea and lightheadedness/dizziness. LLQ abd pain, nausea Acute rectus sheath hematoma Factor V Leiden mutation and history of DVT on chronic Coumadin therapy CTAP: acute left-sided rectus sheath hematoma with active extravasation - this measures up to approximately 4.2 x 8.1 x 10.0 cm Hgb 12.7 on admission, stable INR 2.8 --> s/p 5mg IV vit K in ED Gen surg consulted -No surgical indication at this time -Abdominal binder for compression -Trend H/H Q6H -No chemical AC -If continues to bleed, will need transfer to tertiary care center for IR embolization Hold warfarin Follow H/H trend Pt w/ L calf pain and bruising on medial aspect x few days --> venous Doppler US LLE negative, utilize ice/warm compress PRN PRN pain control w/ IV morphine Fall precautions 10/25- Hematology also consulted for further anticoag recs, appreciate Gen surg recs as well. Advancing diet as tolerated. H/H stable GERD Continue PPI as tolerated Rheumatoid arthritis On methotrexate - hold for now (given every Sun, missed this wk's dose) Folic acid supplementation while on methotrexate - can cont as tolerated F/w [facility], Dr. Quinonez Incidental CTAP findings Including: -Possible chronic L-sided UPJ obstruction -Mild atrophy w/ cortical thinning of the L kidney -1.9cm renal cyst, previously 1.2cm -Atherosclerosis of the aorta -Small hiatal hernia Pt made aware of above findings Outpt f/u advised Atherosclerosis of aorta (as above) Pt previously made aware of this as an outpt Lipid panel, 07/2024: total cholesterol 211 (H), triglycerides 95, HDL 71, LDL 121 Consider addition of statin 2/2 aortic atherosclerosis --> pt refused in past US aorta, 08/2024: no focal AAA TTE, 08/2024: LVEF = 60-64%, normal LV wall motion, grade I DD Pt mentions she is scheduled to see [facility] in Dec DVT Prophylaxis: SCDs/TEDs only, avoid chemical AC ISO above PCP: Amos Davis MD Disposition: Admit to PCU Admission and Anticipated Discharge Date Admission Date: October 24, 2024 Subjective Pt was seen in the AM Per surgery can eat Holding anticoag Review of Systems Review of Systems: All systems reviewed & are unremarkable except as noted in Subjective Physical Exam Physical Exam: General: Alert, oriented. No acute distress HEENT: NC/AT CV: RRR Resp: Breath sounds clear bilaterally, no increased effort of breathing Abdomen: Soft, tender on left, nondistended Extremities: No edema in lower extremities bilaterally. Results & Data Results & Data Vital Signs (Past 12 Hours) Vital Signs Temp Pulse Pulse Resp BP Pulse Ox O2 Del Method 10/25/24 13:58 72 10/25/24 11:04 36.7 C 64 20 116/78 96 Room Air 10/25/24 10:30 54 L 10/25/24 07:50 36.6 C 60 20 126/80 98 Room Air 10/25/24 04:04 36.4 C L 53 L 18 144/81 H 100 Room Air Diagnostic Findings Abdomen/Pelvis CT 10/24/24 13:[address] WITH IV CONTRAST CT DOSE: 1354.26 mGy.cm HISTORY: Acute left lower quadrant abdominal pain with nausea LLQ pain, TECHNIQUE: Multiaxial CT images of the abdomen and pelvis were performed following the IV administration of 94 cc of Optiray, A dose lowering technique was utilized adhering to the principles of ALARA. COMPARISON STUDY: June 27, 2017 FINDINGS: Clear lung bases. No pneumatosis or pneumoperitoneum. Unremarkable spleen, pancreas and adrenal glands. Cholecystectomy with likely postsurgical biliary ductal dilation redemonstrated. Unremarkable liver. Normal-appearing right kidney. Possible chronic left-sided UPJ obstruction. Mild atrophy with cortical thinning of the left kidney. 1.9 cm left renal cyst, previously 1.2 cm. Unremarkable urinary bladder. Hysterectomy. Atherosclerosis of the aorta. No lymphadenopathy. Small hiatal hernia. Erin-en-Y gastric bypass. No bowel obstruction or bowel wall thickening. Mild colonic fecal retention. Acute left-sided rectus sheath hematoma with active extravasation. This measures up to approximately 4.2 x 8.1 x 10.0 cm. No acute fracture. IMPRESSION: 1. Acute 10 cm left rectus sheath hematoma with active extravasation. 2. No bowel obstruction or bowel wall thickening. 3. Chronic findings as above. ACT 112: Negative or not required by law. The above report was generated using voice recognition software. It may contain grammatical, syntax or spelling errors. Electronically signed by: Mychal Mosquera M.D. 10/24/2024 2:21 PM Venous Doppler Study 10/24/24 18:36 EXAM: US venous doppler LE LT CLINICAL HISTORY: R/o DVT, L calf pain, h/o factor 5 Leiden TECHNIQUE: Ultrasound examination of the left lower extremity veins was performed in real time and duplex. One or more of the following were performed- spectral analysis, resistive index, waveform analysis, and pulsed Doppler. COMPARISON: None. FINDINGS: Normal phasic, non-pulsatile and spontaneous flow is noted in the left common femoral, superficial femoral, popliteal and anterior tibial and peroneal veins. Visualized veins of both lower extremities demonstrate normal compressibility. No sonographic evidence of acute deep vein thrombosis (DVT) is detected in the visualized veins of both lower extremities. Compression: All evaluated veins compress fully with applied transducer pressure. Additional Findings: No evidence of intraluminal thrombus. IMPRESSION: No sonographic evidence of acute DVT detected in the left common femoral, superficial femoral, popliteal and anterior tibial and peroneal veins, at the time of examination. Disclaimer: DVT could be missed early in the disease when clot burden is minimal. For patients with moderate and high pretest probability of DVT and negative ultrasound, the [employer] clinical guidelines recommend testing with a D-dimer assay or repeat ultrasound in 5-7 days. If symptoms worsen, the Society of radiologists in ultrasound recommends repeating ultrasound even earlier. Electronically signed by Rodrigo Modi 10-25-2024 06:53 AM (1) Rectus sheath hematoma Encounter type: initial encounter Qualified Code(s): S30.1XXA - Contusion of abdominal wall, initial encounter
[2024-10-25] MEDS: MoRPHine SULFATE 4 MG/ML 1 ML CARP\\VIAL IV PRN (19:42)
[2024-10-26 07:09] LABS: Hematocrit (blood only) 36.6 % (37.0-47.0); Hemoglobin 11.9 g/dl (12.0-16.0); Mean Corpuscular Hemoglobin 32.3 pg (25.0-34.0); Mean Corpuscular Hgb Conc 32.5 g/dL (32.0-36.0); Mean Corpuscular Volume 99.5 fL (80.0-100.0); Mean Platelet Volume 9.7 fL (9.4-12.4); Platelet Count 185 K/uL (130-400); RDW Coefficient of Variation 13.7 % (11.5-14.5); RDW Standard Deviation 50.4 fL (36.4-46.3); Red Blood Count 3.68 M/uL (4.20-5.40); White Blood Count 4.99 K/ul (4.8-10.8)
[2024-10-26 07:26] LABS: Albumin Globulin Ratio 1.5 (0.9-2); Bilirubin,Total 0.8 mg/dl (0.2-1.0); Calcium 8.4 mg/dl (8.6-10.3); Creatinine Clr Calc Pharmacy 128.7 ml/min; Globulin 2.3 gm/dl (2.5-4.0); Phosphorus 3.4 mg/dl (2.5-4.9); Total Protein 5.8 gm/dl (6.0-8.3)
[2024-10-26 07:42] LABS: INR 0.9 (0.9-1.1); Prothrombin Time 10.3 Seconds (9.0-12.0)
[2024-10-26 07:43] VITALS: TEMP 98.1
--- NOTE | 2024-10-26 08:43 | Surgery Progress Note ---
Date of Service October 26, 2024 Assessment & Plan (1) Rectus sheath hematoma: Plan: -Patient doing well at this point and continues to remain hemodynamically stable. -Can continue abdominal binder for compression and pain medication as needed -Coumadin use for factor V Leiden disorder, from a surgery standpoint the patient can start anticoagulation today -If patient's clinical picture would change and she has any signs of ongoing bleeding, she may require transfer for IR embolization. -At this time there is no surgical indication, continue medical management per primary team. Surgery will follow peripherally, please call any questions or concerns. (2) Factor V Leiden mutation: Admission and Anticipated Discharge Date Admission Date: October 24, 2024 Supervising Physician Co-Signing Physician Notes Patient seen and examined, labs reviewed, agree with above. Admitted with rectus sheath hematoma in setting of Coumadin use for factor V Leiden disorder. H&H stable, tenderness improved. Surgery will sign off, call with questions or concerns. Restart anticoagulation per medicine Subjective Patient seen and evaluated this morning. States that she is overall feeling better, still continues with some soreness/pain in the left lower quadrant, however is overall controlled with current pain medication. Hemoglobin 11.9 this morning, vital signs stable, no overt signs of bleeding Patient tolerating diet without any worsening abdominal pain, nausea or vomiting Physical Exam Constitutional: WD/WN, vitals as above Respiratory: normal respiratory effort, lungs clear to auscultation Cardiovascular: RRR, no murmur, no edema Gastrointestinal (Abdomen): Abdomen soft, nondistended, +tenderness palpation to left lower quadrant No rebound, guarding, or peritonitis Skin: no rashes, warm and dry Results & Data Vital Signs (Past 12 Hours) Vital Signs Temp Pulse Pulse Resp BP Pulse Ox O2 Del Method 10/26/24 07:43 36.7 C 58 L 20 137/72 97 Room Air 10/26/24 03:31 36.6 C 90 20 108/75 98 Room Air 10/25/24 23:11 36.6 C 59 L 20 116/73 98 Room Air 10/25/24 22:02 68 PG Care Time/CCT Total # of Minutes Spent Total Time Spent with Patient: Total time spent is greater than 50% in coordination of care (as documented) at patient's floor/unit and/or counseling patient: Coding [place] [address] SUB INP/OBS CARE 125MIN Patient Type Established Medical Decision Making Straight Forward Diagnoses Hematoma of rectus sheath, initial encounter S30.1XXA Encounter type: initial encounter Factor V Leiden mutation D68.51 (1) Rectus sheath hematoma Encounter type: initial encounter Qualified Code(s): S30.1XXA - Contusion of abdominal wall, initial encounter
[2024-10-26 11:48] VITALS: BP 151/91; PULSE 64; RESP 18; O2SAT 96
--- NOTE | 2024-10-26 11:57 | Oncology Consultation ---
Date of Consultation October 26, 2024 Assessment & Plan (1) Hematoma of rectus sheath: recommendations: 1. continue to hold anticoagulation for another 48 hours given the recency of bleeding 2. when we initiating anticoagulation hold Coumadin 3. given the history of factor V Leiden will recommend anticoagulation with Eliquis 5 mg twice daily as it is effective in patients with recurrent DVT who have history of factor V Leiden 4. risk of bleeding with Eliquis is lower than Coumadin, given that the patient bled on Coumadin will not recommend reinitiation of Coumadin 5. no need for therapeutic bridge when starting Eliquis (2) H/O deep venous thrombosis: recommendations given above Plan thank you for this interesting hematological consult. A total of 60 minutes spent in counseling, coordination of care, review of prior records. Hematology will continue to follow the patient make appropriate recommendations. History of Present Illness Reason for Consultation: Recommendations for anticoagulation Attending Physician: Alyce Ashraf MD History of Present Illness patient who is a 59-year-old female with a history of significant factor V Leiden mutation, has a history of DVT, is on chronic Coumadin therapy, admitted to the hospital with left lower quadrant pain. On admission had imaging which showed rectus sheath hematoma. She has been on Coumadin chronically. No recent trauma. This was stopped spontaneous hematoma. She was in the hospital, her hemoglobin was stable. No fever chills or night sweats. No nausea vomiting. Allergies Allergy/AdvReac Type Severity Reaction Status Date / Time pantoprazole Allergy Intermediate RASH Verified 10/24/24 15:49 penicillin V Allergy Intermediate MILD HIVES Verified 10/24/24 15:49 Tetracyclines Allergy Mild RASH Verified 10/24/24 15:49 latex Allergy Unknown RASH Verified 10/24/24 15:49 Sulfa (Sulfonamide AdvReac Mild HEADACHES Verified 10/24/24 15:49 Antibiotics) Home Medications Medication Instructions Recorded Confirmed Type warfarin 5 mg tablet See Rx Instructions .Route .COMPLEX 02/05/21 10/24/24 History folic acid 1 mg tablet 1 mg PO DAILY 10/24/24 10/24/24 History methotrexate sodium 2.5 mg tablet 15 mg PO WK 10/24/24 10/24/24 History pantoprazole 40 mg tablet,delayed 40 mg PO DAILYBB 10/24/24 10/24/24 History release Patient History Medical History History of factor V Leiden mutation History of pancreatitis History of small bowel obstruction History of anemia History of endometriosis History of gastroesophageal reflux (GERD) History of rheumatoid arthritis History of DVT (deep vein thrombosis) History of migraine Surgical History History of ureter stent Family History Other Deep vein thrombosis Social History Smoking Status: Never smoker Tobacco Type: Cigarettes Second Hand Exposure: No; Do You Dip or Chew Tobacco: No; Tobacco Cessation Education Requested by Patient: No Hx Alcohol Use: Yes Hx Substance Use: No Preferred Language: Libyan Communication Ability: Effective Hearing Ability: Normal 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: Voice Beliefs That Will Affect Care: None marital status: Single Current Living Situation: Family current occupational status: employed 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 Other Information That Helps Us Care for You: No Feels Safe at Home: Yes Safety Concerns: Feels Safe At This Time Assistive Devices: None Review of Systems Review of Systems: Left lower quadrant pain Constitutional: as per Subjective / HPI Eyes: as per Subjective / HPI Ear, Nose, Mouth, Throat: as per Subjective / HPI Respiratory: as per Subjective / HPI Cardiovascular: as per Subjective / HPI Gastrointestinal: as per Subjective / HPI Genitourinary: as per Subjective / HPI Musculoskeletal: as per Subjective / HPI Integumentary: as per Subjective / HPI Neurologic: as per Subjective / HPI Psychiatric: as per Subjective / HPI Endocrine: as per Subjective / HPI Hematologic / Lymphatic: as per Subjective / HPI Allergy / Immunological: as per Subjective / HPI Physical Exam Constitutional: WD/WN, vitals as above Eyes: PERRL, conjunctivae normal, anicteric sclerae ENMT: external ear and nose normal, oropharynx normal Neck: trachea midline, no thyromegaly Respiratory: normal respiratory effort, lungs clear to auscultation Cardiovascular: RRR, no murmur, no edema Gastrointestinal (Abdomen): normal bowel sounds, soft, nontender, no hepatosplenomegaly Musculoskeletal: no cyanosis or clubbing, extremities motor strength 5/5 Skin: no rashes, warm and dry Neurologic: patellar DTR's 2+ bilat, sensation intact Psychiatric: A+Ox3, euthymic affect Genitourinary: no vaginal lesions, no adnexal mass Results & Data Vital Signs (Past 12 Hours) Vital Signs Temp Pulse Pulse Resp BP Pulse Ox O2 Del Method 10/26/24 11:46 36.7 C 64 18 151/91 H 96 Room Air 10/26/24 10:21 60 10/26/24 07:43 36.7 C 58 L 20 137/72 97 Room Air 10/26/24 03:31 36.6 C 90 20 108/75 98 Room Air (1) Hematoma of rectus sheath Encounter type: initial encounter Qualified Code(s): S30.1XXA - Contusion of abdominal wall, initial encounter
--- NOTE | 2024-10-26 14:14 | Discharge Summary ---
Discharge Summary Date of Service October 26, 2024 Principal Dx & Hospital Course #1 = Principal Diagnosis (1) Rectus sheath hematoma: (2) Factor V Leiden mutation: (3) H/O deep venous thrombosis: Plan Patient is a 59-year-old female with past medical history significant for factor V Leiden mutation and history of DVT on chronic Coumadin therapy, HTN, HLD, rheumatoid arthritis involving multiple sites, history of renal calculi, depression, JORGE and other problems listed below who presented to the ED for evaluation of abdominal pain with associated nausea and lightheadedness/dizziness. LLQ abd pain, nausea Acute rectus sheath hematoma Factor V Leiden mutation and history of DVT on chronic Coumadin therapy CTAP: acute left-sided rectus sheath hematoma with active extravasation - this measures up to approximately 4.2 x 8.1 x 10.0 cm Hgb 12.7 on admission, remained stable in that range INR 2.8 --> s/p 5mg IV vit K in ED, INR currently 0.9 on discharge Gen surg consulted -No surgical indication at this time -Abdominal binder for compression -Trend H/H Q6H -No chemical AC -If continues to bleed, will need transfer to tertiary care center for IR embolization Held warfarin Follow H/H trend- remained stable Pt w/ L calf pain and bruising on medial aspect x few days --> venous Doppler US LLE negative, utilize ice/warm compress PRN PRN pain control w/ IV morphine Fall precautions Hematology consulted for further anticoag recs, recommended/stated the following per Dr Sharif Quijano on the day of discharge: "... recommendations: 1. continue to hold anticoagulation for another 48 hours given the recency of bleeding 2. when we initiating anticoagulation hold Coumadin 3. given the history of factor V Leiden will recommend anticoagulation with Eliquis 5 mg twice daily as it is effective in patients with recurrent DVT who have history of factor V Leiden 4. risk of bleeding with Eliquis is lower than Coumadin, given that the patient bled on Coumadin will not recommend reinitiation of Coumadin 5. no need for therapeutic bridge when starting Eliquis..." On the day of discharge, warfarin was discontinued as noted above after further discussion with the patient. She was advised to start prescribed Eliquis 5mg bid in 48hours and keep close followup with her primary care provider. She verbalized understanding and agreement. She indicated that she did not believe she had ever tried Eliquis in the past but notes an attempt to transition to another anticoagulant in the past that gave her a rash. GERD Continue PPI as tolerated Rheumatoid arthritis On methotrexate - hold for now (given every Sun, missed this wk's dose) Folic acid supplementation while on methotrexate - can cont as tolerated F/w Jeremy will, Dr. Quinonez Incidental CTAP findings Including: -Possible chronic L-sided UPJ obstruction -Mild atrophy w/ cortical thinning of the L kidney -1.9cm renal cyst, previously 1.2cm -Atherosclerosis of the aorta -Small hiatal hernia Pt made aware of above findings Outpt f/u advised Atherosclerosis of aorta (as above) Pt previously made aware of this as an outpt Lipid panel, 07/2024: total cholesterol 211 (H), triglycerides 95, HDL 71, LDL 121 Consider addition of statin 2/2 aortic atherosclerosis --> pt refused in past US aorta, 08/2024: no focal AAA TTE, 08/2024: LVEF = 60-64%, normal LV wall motion, grade I DD Pt mentions she is scheduled to see [employer] cher in Dec Notes For Next Care Provider As above Medication Changes From Visit Per Hematology: STOP warfarin, start eliquis 5mg BID in 48hrs Admission HPI Per Admitting Provider Patient is a 59-year-old female with past medical history significant for factor V Leiden mutation and history of DVT on chronic Coumadin therapy, HTN, HLD, rheumatoid arthritis involving multiple sites, history of renal calculi, depression, JORGE and other problems listed below who presented to the ED for evaluation of abdominal pain with associated nausea and lightheadedness/dizziness. History obtained from the patient, discussion with ED provider and associated chart review. Patient with lower abdominal pain, primarily in the left lower quadrant, since last Sunday. Initially resolved over the weekend but then returned a few days after and in greater severity. Describes the pain as stabbing in nature. Also now with lightheadedness, dizziness and nausea but no vomiting since yesterday. Noted to be repeatedly retching today. No cough, SOB or chest pain. Does not recall inciting event such as trauma. On chronic Coumadin therapy (7.5mg M/F; 5mg all other days) for history of factor V Leiden mutation and DVT - last DVT noted in 2009. No recently missed doses of Coumadin. Does endorse some pain in her left calf as well as bruising which is tender to palpation. She first noticed this a few days ago. Admission Exam Per Admitting Provider On exam: Patient on room air, Left lower abdominal tenderness and induration noted, no bruising noted. Abdominal binder in place. No BLE edema. Discharge Exam General: Alert, oriented. No acute distress HEENT: NC/AT CV: RRR Resp: Breath sounds clear bilaterally, no increased effort of breathing Abdomen: Soft, tender on left, nondistended Extremities: No edema in lower extremities bilaterally. Updated Medication List Medication Instructions Recorded Confirmed Type folic acid 1 mg tablet 1 mg PO DAILY 10/24/24 10/24/24 History methotrexate sodium 2.5 mg tablet 15 mg PO WK 10/24/24 10/24/24 History pantoprazole 40 mg tablet,delayed 40 mg PO DAILYBB 10/24/24 10/24/24 History release apixaban 5 mg tablet (Eliquis) 5 mg PO BID #60 tabs 10/26/24 Rx Hospital Stay Data Consultations 10/24/24 17:10 ED Decision to Admit Stat 10/25/24 10:28 Consult Hematology Routine Diagnostic Imagining Performed 10/24/24 13:20 CT Abd and Pelvis [CT abd pelvis IV con only] Stat 10/24/24 18:36 US venous doppler LE LT Urgent Abdomen/Pelvis CT 10/24/24 13:[address] WITH IV CONTRAST CT DOSE: 1354.26 mGy.cm HISTORY: Acute left lower quadrant abdominal pain with nausea LLQ pain, TECHNIQUE: Multiaxial CT images of the abdomen and pelvis were performed following the IV administration of 94 cc of Optiray, A dose lowering technique was utilized adhering to the principles of ALARA. COMPARISON STUDY: June 27, 2017 FINDINGS: Clear lung bases. No pneumatosis or pneumoperitoneum. Unremarkable spleen, pancreas and adrenal glands. Cholecystectomy with likely postsurgical biliary ductal dilation redemonstrated. Unremarkable liver. Normal-appearing right kidney. Possible chronic left-sided UPJ obstruction. Mild atrophy with cortical thinning of the left kidney. 1.9 cm left renal cyst, previously 1.2 cm. Unremarkable urinary bladder. Hysterectomy. Atherosclerosis of the aorta. No lymphadenopathy. Small hiatal hernia. Erin-en-Y gastric bypass. No bowel obstruction or bowel wall thickening. Mild colonic fecal retention. Acute left-sided rectus sheath hematoma with active extravasation. This measures up to approximately 4.2 x 8.1 x 10.0 cm. No acute fracture. IMPRESSION: 1. Acute 10 cm left rectus sheath hematoma with active extravasation. 2. No bowel obstruction or bowel wall thickening. 3. Chronic findings as above. ACT 112: Negative or not required by law. The above report was generated using voice recognition software. It may contain grammatical, syntax or spelling errors. Electronically signed by: Mychal Mosquera M.D. 10/24/2024 2:21 PM Venous Doppler Study 10/24/24 18:36 EXAM: US venous doppler LE LT CLINICAL HISTORY: R/o DVT, L calf pain, h/o factor 5 Leiden TECHNIQUE: Ultrasound examination of the left lower extremity veins was performed in real time and duplex. One or more of the following were performed- spectral analysis, resistive index, waveform analysis, and pulsed Doppler. COMPARISON: None. FINDINGS: Normal phasic, non-pulsatile and spontaneous flow is noted in the left common femoral, superficial femoral, popliteal and anterior tibial and peroneal veins. Visualized veins of both lower extremities demonstrate normal compressibility. No sonographic evidence of acute deep vein thrombosis (DVT) is detected in the visualized veins of both lower extremities. Compression: All evaluated veins compress fully with applied transducer pressure. Additional Findings: No evidence of intraluminal thrombus. IMPRESSION: No sonographic evidence of acute DVT detected in the left common femoral, superficial femoral, popliteal and anterior tibial and peroneal veins, at the time of examination. Disclaimer: DVT could be missed early in the disease when clot burden is minimal. For patients with moderate and high pretest probability of DVT and negative ultrasound, the [employer] clinical guidelines recommend testing with a D-dimer assay or repeat ultrasound in 5-7 days. If symptoms worsen, the Society of radiologists in ultrasound recommends repeating ultrasound even earlier. Electronically signed by Rodrigo Modi 10-25-2024 06:53 AM Pending Results Patient Have Any Pending Studies at Discharge: No Discharge Instructions Given to Patient (Per Discharging Provider) Maggy, You were seen and treated for a hematoma in your abdomen. You were seen by the Creative Resource Manager who recommends that you do not take any anticoagulation for another 48hrs as your risk of bleeding once more remains high. They recommend that you discontinue warfarin and start on Eliquis 5mg twice a day after 48hrs. Please start taking that twice a day on October 29 2024. As discussed, you will not need to have levels checked while on this medication but we do recommend that you monitor yourself for any signs of bruising or bleeding. Your hemoglobin has remained stable. Please discuss with your design assistant your concerns about the medication methotrexate. Please keep close follow up with your primary care provider and specialists after discharge. Please do not hesitate to come back to the emergency room if your symptoms worsen or return. It was a pleasure taking care of you while you were here. Total Time Total Time Spent Total Time Spent (In Minutes): 60
--- NOTE | 2024-10-28 09:13 | Coding Query ---
CODING QUERY To promote full compliance with coding requirements relating to patient care, provider participation is requested in all cases of deburring and tooling machine operator uncertainty. Please assist us with the question(s) below: Coding Question(s): Pt admitted with rectus sheath hematoma on it technician anticoagulation No history of trauma. Please document, if known or suspected, the etiology of the rectus hematoma. Thanks for your help! Adonis Farrar [facility] Physician's Response(s): Principal Diagnosis: "that condition established after study, to be chiefly responsible for occasioning the admission of the patient to the hospital for care." Co-Existing Principal Diagnosis: "when two or more diagnoses equally meet the criteria for principal diagnosis as determined by the circumstances of admission, diagnostic work up, and/or therapy provided, and the Alphabetic Index, Tabular List, or another coding guideline does not provide sequencing direction, any one of the diagnoses may be sequenced first." "When the physician has documented what appears to be a current diagnosis in the body of the record, but has not included the diagnosis in the final diagnostic statement, the physician should be asked whether the diagnosis should be added." ([facility] 2 QTR90. p3-4) SORAYA
--- NOTE | 2024-11-04 11:05 | Coding Query ---
CODING QUERY , To promote full compliance with coding requirements relating to patient care, provider participation is requested in all cases of industrial staff nurse uncertainty. Please assist us with the question(s) below: CODING QUERY To promote full compliance with coding requirements relating to patient care, provider participation is requested in all cases of industrial staff nurse uncertainty. Please assist us with the question(s) below: Coding Question(s): Pt admitted with rectus sheath hematoma on fdc anticoagulation No history of trauma. Please document, if known or suspected, the etiology of the rectus hematoma. Thanks for your help! ARIANNA Oneill [facility] Physician's Response(s): unknown etiology. anticoagulation and possibly muscle strain. thank you. ARIANNA Oneill [facility] Principal Diagnosis: "that condition established after study, to be chiefly responsible for occasioning the admission of the patient to the hospital for care." Co-Existing Principal Diagnosis: "when two or more diagnoses equally meet the criteria for principal diagnosis as determined by the circumstances of admission, diagnostic work up, and/or therapy provided, and the Alphabetic Index, Tabular List, or another coding guideline does not provide sequencing direction, any one of the diagnoses may be sequenced first." "When the physician has documented what appears to be a current diagnosis in the body of the record, but has not included the diagnosis in the final diagnostic statement, the physician should be asked whether the diagnosis should be added." (Source [facility] 2 QTR90. p3-4) SORAYA
== END 2024-10-26 15:44 | disposition home or self-care (01) | DRG 813 ==
LOC: ED 12:30 → 2S 17:14 → SUATTDRO 17:14 → 2S 18:13